=== PATIENT | male | born 1955 | race Caucasian/White ===

== ENCOUNTER 2016-10-29 17:43 | Inpatient (IN) | payer MEDICARE ==
[2016-10-29] MEDS ORDERED: SODIUM CHLORIDE 0.9% 1,000 ML IV ONE (18:31)
--- NOTE | 2016-10-29 18:32 | ED Physician Documentation ---
History of Present Illness - Stated complaint Stated Complaint: BILAT LEG ABCESS - Chief complaint Chief Complaint: Ext Problem - History obtained from History obtained from: Patient - History of Present Illness Timing: How many weeks ago (3) Pain level max: 10 Pain level now: 10 - Additonal information Additional information: Patient is a 61-year-old male who presents to the emergency department complaining of bilateral lower extremity swelling and purulent drainage for the past 3 weeks. States has had multiple abscesses in the past. Denies any IV drug use or history of IV drug use. States has been feeling hot and cold. Does not improve with anything and does not worsen with anything. He is on morphine at home for chronic pain. Review of Systems Ten Systems: 10 systems reviewed and negative Constitutional: reports: Chills. denies: Fever Ears: denies: Ear pain Nose: denies: Rhinorrhea / runny nose, Congestion Throat: denies: Sore throat Cardiac: denies: Chest pain / pressure Respiratory: denies: Cough GI: denies: Nausea, Vomiting, Diarrhea Skin: reports: Rash (For the past 2 days) Musculoskeletal: denies: Neck pain, Back pain Neurologic: denies: Focal weakness, Numbness, Headache PD PAST MEDICAL HISTORY - Past Medical History Cardiovascular: Hypertension Respiratory: COPD, Pneumonia Neuro: None, Headache/migraine, Peripheral neuropathy Endocrine/Autoimmune: None GI: Other : None HEENT: None Psych: Depression, Post traumatic stress disorder Musculoskeletal: Chronic back pain Derm: None Other Past Medical History: pancreatic cancer, umbilical hernia - Past Surgical History Past Surgical History: Yes Ortho: Spine surgery Derm: Skin cancer surgery - Present Medications Home Medications: Ambulatory Orders Medication Instructions Recorded Confirmed Albuterol Sulfate [Albuterol 1 puffs INH Q4HR PRN 11/15/14 11/15/14 Sulfate Hfa] Morphine ER 90 mg PO Q8H 11/15/14 11/15/14 Morphine Ir [Ms Ir] 30 mg PO Q4H PRN 11/15/14 11/15/14 - Allergies Allergies/Adverse Reactions: Allergies Allergy/AdvReac Type Severity Reaction Status Date / Time milk Allergy GI upset Verified 11/07/14 14:20 - Social History Does the pt smoke?: Yes Smoking Status: Current every day smoker Does the pt drink ETOH?: Yes Does the pt have substance abuse?: No - Immunizations Immunizations are current?: Yes - POLST Patient has POLST: No PD ED PE NORMAL - Vitals Vital signs reviewed: Yes - General General: Alert and oriented X 3, No acute distress - HEENT HEENT: PERRL, Moist mucous membranes - Neck Neck: Supple, no meningeal sign - Cardiac Cardiac: RRR - Respiratory Respiratory: No respiratory distress, Clear bilaterally - Abdomen Abdomen: Soft, Non tender, Non distended - Derm Derm: Warm and dry - Extremities Extremities: Other (B LE edema, moderate cellulitis to the B medial aspects of the lower legs. draining wounds, no drainable abscess. Also swelling to the B hands. Also small non-blanching rash to the B LE and groin. not palpable. ) - Neuro Neuro: Alert and oriented X 3 - Psych Psych: Normal mood, Normal affect Results - Vitals Vitals: Vital Signs - 24 hr 10/29/16 10/29/16 10/29/16 17:56 19:46 20:33 Temperature 36.6 C Heart Rate 94 79 81 Respiratory 18 15 16 Rate Blood Pressure 175/114 H 162/90 H 152/90 H O2 Saturation 100 93 100 Oxygen O2 Source Nasal cannula Oxygen Flow Rate 2 - Labs Labs: Laboratory Tests 10/29/16 10/29/16 10/29/16 19:52 19:52 19:52 WBC 9.7 RBC 4.12 L Hgb 12.0 L Hct 36.0 L MCV 87.5 MCH 29.1 MCHC 33.2 RDW 13.6 Plt Count 327 MPV 7.0 L Neut # 7.7 H Lymph # 1.1 L [place] # 0.8 Eos # 0.1 Baso # 0.0 Absolute Nucleated RBC 0.00 Nucleated RBCs 0.0 ESR PT INR APTT Sodium 130 L Potassium 3.7 Chloride 95 L Carbon Dioxide 27 Anion Gap 8.0 BUN 20 Creatinine 0.6 Estimated GFR (MDRD) 136 Glucose 128 H Lactic Acid 1.4 Calcium 8.3 L Total Bilirubin 0.5 AST 36 ALT 15 Alkaline Phosphatase 74 C-Reactive Protein Total Protein 6.7 Albumin 2.8 L Globulin 3.9 Albumin/Globulin Ratio 0.7 L Lipase 15 L 10/29/16 10/29/16 10/29/16 19:52 19:52 19:52 WBC RBC Hgb Hct MCV MCH MCHC RDW Plt Count MPV Neut # Lymph # [place] # Eos # Baso # Absolute Nucleated RBC Nucleated RBCs ESR 20 PT 13.8 H INR 1.2 APTT 33.5 H Sodium Potassium Chloride Carbon Dioxide Anion Gap BUN Creatinine Estimated GFR (MDRD) Glucose Lactic Acid Calcium Total Bilirubin AST ALT Alkaline Phosphatase C-Reactive Protein 12.7 H Total Protein Albumin Globulin Albumin/Globulin Ratio Lipase PD MEDICAL DECISION MAKING - ED course Complexity details: reviewed old records, reviewed results, re-evaluated patient , considered differential, d/w patient, d/w family, d/w independent crop consultant ED course: Patient is a 61-year-old male with bilateral lower extremity cellulitis. Also appears to have a rash on the bilateral lower extremity, possible vasculitis? He has no drainable abscess, but will require IV antibiotics. He was a difficult IV stick as his veins have been scarred over the years from multiple IV starts. Patient denies any IV drug use. Given Rocephin and vancomycin IV. Discussed the case with Dr. Vera, hospitalist who accepts. This document was made in part using voice recognition software. While efforts are made to proofread this document, sound alike and grammatical errors may occur. Departure - Departure Disposition: 64 [facility] DC/Xfer Clinical Impression: Cellulitis, Vasculitis Condition: Good Discharge Date/Time: 10/29/16 21:41
[2016-10-29] MEDS ORDERED: cefTRIAXone 1 GM in SODIUM CHLORIDE 0.9% MINIBAG 100 ML IV STA (19:52)
[2016-10-29] MEDS ORDERED: VANCOMYCIN INJ 1 GM in SODIUM CHLORIDE 0.9% 250 ML IV STA (19:52)
[2016-10-29 20:03] LABS: BASOPHILS % (AUTO) 0.4 %; EOSINOPHILS # (AUTO) 0.1 10^3/uL (0.0-0.7); EOSINOPHILS % (AUTO) 0.8 %; LYMPHOCYTES # (AUTO) 1.1 10^3/uL (1.5-3.5); LYMPHOCYTES % (AUTO) 11.1 %; MEAN CORPUSCULAR HEMOGLOBIN 29.1 pg (27.0-31.0); MEAN CORPUSCULAR HGB CONC 33.2 g/dL (32.0-36.0); MEAN CORPUSCULAR VOLUME 87.5 fL (80.0-94.0); MONOCYTES # (AUTO) 0.8 10^3/uL (0.0-1.0); MONOCYTES % (AUTO) 8.3 %; NEUTROPHILS # (AUTO) 7.7 10^3/uL (1.5-6.6); NEUTROPHILS % (AUTO) 79.4 %; RED BLOOD COUNT 4.12 10^6/uL (4.70-6.10); RED CELL DISTRIBUTION WIDTH 13.6 % (12.0-15.0); UNCORRECTED WHITE BLOOD COUNT 9.7 x10^3/uL; WHITE BLOOD COUNT 9.7 x10^3/uL (4.8-10.8)
[2016-10-29] MEDS ORDERED: oxyCODONE 5 MG TABLET PO STA (20:03)
[2016-10-29] MEDS ORDERED: VANCOMYCIN 1 GM VIAL ONE (20:09)
[2016-10-29] MEDS ORDERED: cefTRIAXone 1 GM VIAL ONE (20:09)
[2016-10-29] MEDS ORDERED: oxyCODONE 5 MG TABLET ONE (20:09)
[2016-10-29 20:15] LABS: ALBUMIN/GLOBULIN RATIO 0.7 (1.0-2.2); BILIRUBIN,TOTAL 0.5 mg/dL (0.2-1.0); CALCIUM 8.3 mg/dL (8.5-10.3); CREATININE 0.6 mg/dL (0.6-1.2); POTASSIUM 3.7 mmol/L (3.5-5.0); TOTAL PROTEIN 6.7 g/dL (6.7-8.2)
[2016-10-29] MEDS ORDERED: oxyCODONE 5 MG TABLET PO PRN (20:35)
[2016-10-29] MEDS ORDERED: ONDANSETRON ODT 4 MG TABLET TL PRN (20:41)
[2016-10-29 20:43] LABS: INR 1.2 (0.8-1.2); PT - PROTHROMBIN TIME 13.8 secs (9.9-12.6)
[2016-10-29 20:50] LABS: PARTIAL THROMBOPLASTIN TIME 33.5 secs (24.9-33.3)
[2016-10-29] MEDS ORDERED: MORPHINE ER 60 MG TABLET PO SCH (21:00)
[2016-10-29] MEDS ORDERED: ALBUTEROL NEB 2.5 MG/3 ML INH PRN (21:15)
[2016-10-29] MEDS: MORPHINE ER 15 MG TABLET PO SCH (22:17)
[2016-10-29] MEDS: SODIUM CHLORIDE FLUSH 0.9% 10 ML SYRINGE IVP SCH (22:18)
[2016-10-29] MEDS: SODIUM CHLORIDE 0.9% 1,000 ML IV SCH (22:18)
[2016-10-30] MEDS: SODIUM CHLORIDE FLUSH 0.9% 10 ML SYRINGE IVP SCH ×3 (05:00→21:22)
[2016-10-30] MEDS: SODIUM CHLORIDE 0.9% 1,000 ML IV SCH (05:00)
[2016-10-30] MEDS ORDERED: IPRATROPIUM/ALBUTEROL 3 ML NEB INH PRN (07:24)
[2016-10-30] MEDS: MORPHINE ER 15 MG TABLET PO SCH ×2 (08:08→21:22)
[2016-10-30] MEDS ORDERED: VANCOMYCIN PER PHARMACY 0.000001 GM in SODIUM CHLORIDE 0.9% 250 ML IV PRN (09:00)
--- NOTE | 2016-10-30 09:17 | PROVIDER PROGRESS NOTE ---
Subjective - Subjective Pt reports feeling: No change Subjective: patient state he is better, he report no fever, chill, his lower extremities infection has been more than 3 weeks. Objective - Vital Signs/Intake & Output Vital Signs: Vital Signs x48h Pulse Resp 10/30/16 08:00 69 18 Intake & Output: Intake & Output 10/27/16 10/28/16 10/29/16 10/30/16 23:59 23:59 23:59 23:59 Intake Total 627 814 Output Total 400 Balance 627 414 - Objective General Appearance: positive: No acute distress, Alert Eyes Bilateral: positive: Normal inspection, PERRL ENT: positive: ENT inspection nml, No signs of dehydration Neck: positive: Nml inspection, Thyroid nml, Trachea midline, Other (no stiff neck) Respiratory: positive: Chest non-tender, No respiratory distress, Breath sounds nml Cardiovascular: positive: Regular rate & rhythm, No murmur, No gallop Peripheral Pulses: 2+ Radial (R), 2+ Radial (L), 2+ Dorsalis pedis (R), 2+ Dorsalis pedis (L) Abdomen: positive: Non-tender, Nml bowel sounds, No distention Back: positive: Nml inspection Skin: positive: Warm, Other (erthymus, swelling, mild tenderness, diffused ecchymoses at bilateral lower extremities, mild to moderate swelling without redness and tenderness on bilateral hands pain at movement of left hand) Extremities: positive: Pedal edema, Other (review above skin) Neurologic/Psychiatric: positive: Oriented x3, Sensation nml - Lab Results Fish Bones: 10/29/16 19:52 10/29/16 19:52 Other Labs: Lab Results x24hrs 10/30/16 Range/Units 04:35 Urine Opiates Screen POSITIVE H (NEGATIVE) Ur Oxycodone Screen POSITIVE H (NEGATIVE) Urine Methadone Screen NEGATIVE (NEGATIVE) Ur Propoxyphene Screen NEGATIVE (NEGATIVE) Ur Barbiturates Screen NEGATIVE (NEGATIVE) Ur Tricyclics Screen NEGATIVE (NEGATIVE) Ur Phencyclidine Scrn NEGATIVE (NEGATIVE) Ur Amphetamine Screen POSITIVE H (NEGATIVE) U Methamphetamines Scrn POSITIVE H (NEGATIVE) U Benzodiazepines Scrn NEGATIVE (NEGATIVE) Urine Cocaine Screen NEGATIVE (NEGATIVE) U Cannabinoids Screen NEGATIVE (NEGATIVE) Assessment/Plan - Problem List (1) Cellulitis Impression: continue antibiotic treatment, follow up blood and wound culture US of bilateral lower extremities to R/O DVT Xray of left hand to R/O fracture
[2016-10-30] MEDS: ENOXAPARIN 40 MG/0.4 ML SYRINGE SUBQ SCH (09:18)
[2016-10-30] MEDS: VANCOMYCIN INJ 1 GM in SODIUM CHLORIDE 0.9% 250 ML IV SCH ×2 (09:20→21:22)
[2016-10-30] MEDS: POLYETHYLENE GLYCOL 3350 17 GM PACKET PO SCH (09:20)
[2016-10-30] MEDS: MORPHINE IR 15 MG TABLET PO PRN ×2 (12:02→17:27)
--- NOTE | 2016-10-30 15:52 | Ultrasound Preliminary Report ---
Exam: US Duplex Ext Veins Bilateral IMPRESSION: No evidence for deep venous thrombosis bilaterally. [facility] SITE ID: [id number]
--- NOTE | 2016-10-30 15:55 | Ultrasound Report ---
EXAM: BILATERAL LOWER EXTREMITY VENOUS ULTRASOUND EXAM DATE: 10/30/2016 10:40 AM. CLINICAL HISTORY: Bilateral leg swelling for 3 weeks, clinical concern for DVT. COMPARISON: Right lower leg venous Doppler ultrasound exam on 10/25/2009; left leg venous Doppler ul trasound on 11/13/2014. TECHNIQUE: Real-time sonographic vascular imaging was performed by the fresh foods cake decorator through the lower extremities utilizing both color-flow and Doppler spectral analysis. Multiple shipping services sales representative static i mages were saved for review. FINDINGS: Right: Common Femoral Vein (CFV): Normal. CFV-GSV Junction: Normal. Profunda Femoral Vein (PFV): Normal. Femoral Vein (FV) Prox: Normal. Femoral Vein (FV) Mid: Normal. Femoral Vein (FV) Dist: Normal. Popliteal Vein: Normal. Posterior Tibial Veins: Normal. Peroneal Veins: Normal. Left: Common Femoral Vein (CFV): Normal. CFV-GSV Junction: Normal. Profunda Femoral Vein (PFV): Normal. Femoral Vein (FV) Prox: Normal. Femoral Vein (FV) Mid: Normal. Femoral Vein (FV) Dist: Normal. Popliteal Vein: Normal. Posterior Tibial Veins: Normal. Peroneal Veins: Normal. IMPRESSION: No evidence for deep venous thrombosis bilaterally. [facility] Referring Provider Line: [phone] SITE ID: [id number]
[2016-10-30] MEDS: cefTRIAXone 1 GM VIAL IVP SCH (20:08)
[2016-10-31] MEDS: MORPHINE IR 15 MG TABLET PO PRN ×6 (00:35→22:44)
[2016-10-31] MEDS: SODIUM CHLORIDE FLUSH 0.9% 10 ML SYRINGE IVP SCH ×3 (04:20→21:13)
[2016-10-31 06:17] LABS: BASOPHILS % (AUTO) 0.4 %; EOSINOPHILS # (AUTO) 0.1 10^3/uL (0.0-0.7); EOSINOPHILS % (AUTO) 1.3 %; HCT - HEMATOCRIT 33.3 % (42.0-52.0); HGB - HEMOGLOBIN 11.2 g/dL (14.0-18.0); LYMPHOCYTES # (AUTO) 1.1 10^3/uL (1.5-3.5); LYMPHOCYTES % (AUTO) 15.4 %; MEAN CORPUSCULAR HEMOGLOBIN 29.8 pg (27.0-31.0); MEAN CORPUSCULAR HGB CONC 33.7 g/dL (32.0-36.0); MEAN CORPUSCULAR VOLUME 88.5 fL (80.0-94.0); MEAN PLATELET VOLUME 7.1 fL (7.4-11.4); MONOCYTES # (AUTO) 0.5 10^3/uL (0.0-1.0); MONOCYTES % (AUTO) 6.6 %; NEUTROPHILS # (AUTO) 5.6 10^3/uL (1.5-6.6); NEUTROPHILS % (AUTO) 76.3 %; NUCLEATED RED BLOOD CELLS AUTO 0.1 /100WBC; RED BLOOD COUNT 3.76 10^6/uL (4.70-6.10); RED CELL DISTRIBUTION WIDTH 13.8 % (12.0-15.0); UNCORRECTED WHITE BLOOD COUNT 7.3 x10^3/uL; WHITE BLOOD COUNT 7.3 x10^3/uL (4.8-10.8)
[2016-10-31 06:33] LABS: CALCIUM 7.8 mg/dL (8.5-10.3); CREATININE 0.6 mg/dL (0.6-1.2); POTASSIUM 3.4 mmol/L (3.5-5.0)
[2016-10-31] MEDS ORDERED: POTASSIUM CHLORIDE 20 MEQ TABLET PO SCH (08:00)
[2016-10-31] MEDS: POLYETHYLENE GLYCOL 3350 17 GM PACKET PO SCH (08:43)
[2016-10-31] MEDS: SENNA 8.6 MG TABLET PO SCH (08:44)
[2016-10-31] MEDS: MORPHINE ER 15 MG TABLET PO SCH ×2 (08:45→21:13)
[2016-10-31] MEDS: DOCUSATE SODIUM 250 MG CAPSULE PO SCH (08:46)
[2016-10-31] MEDS: ENOXAPARIN 40 MG/0.4 ML SYRINGE SUBQ SCH (08:47)
[2016-10-31] MEDS: VANCOMYCIN INJ 1 GM in SODIUM CHLORIDE 0.9% 250 ML IV SCH ×2 (09:21→21:13)
[2016-10-31] MEDS ORDERED: CALCIUM CARBONATE CHEW 500 MG TABLET PO SCH (11:00)
[2016-10-31] MEDS: LORazepam 2 MG/ML SYRINGE IVP PRN (11:04)
[2016-10-31] MEDS: cloNIDine 0.1 MG TABLET PO SCH ×2 (11:08→21:13)
--- NOTE | 2016-10-31 11:53 | PROVIDER PROGRESS NOTE ---
Subjective - Subjective Pt reports feeling: No change Subjective: patient state he still has unspecific pain, pain is all over his body, and anxiety. Denies chest pain, headache, abdominal pain, or any specific pain. Objective - Vital Signs/Intake & Output Vital Signs: Vital Signs x48h Temp Pulse Pulse Resp BP Pulse Ox 10/31/16 07:55 36.5 C 77 16 144/86 H 93 10/31/16 07:30 56 L 18 Intake & Output: Intake & Output 10/28/16 10/29/16 10/30/16 10/31/16 23:59 23:59 23:59 23:59 Intake Total 627 2691 1120 Output Total 1050 400 Balance 627 1641 720 - Objective General Appearance: positive: No acute distress, Alert Eyes Bilateral: positive: Normal inspection, PERRL ENT: positive: ENT inspection nml, Pharynx nml, No signs of dehydration Neck: positive: Nml inspection, Thyroid nml, Trachea midline Respiratory: positive: Chest non-tender, No respiratory distress, Breath sounds nml Cardiovascular: positive: Regular rate & rhythm, No murmur, No gallop Peripheral Pulses: 2+ Radial (R), 2+ Radial (L), 2+ Dorsalis pedis (R), 2+ Dorsalis pedis (L) Abdomen: positive: Non-tender, Nml bowel sounds, No distention Back: positive: Nml inspection Skin: positive: Color nml, Warm, Other (eccymosis on bilateral leg but reduced from yesterday. reduced redness and swelling from bilatera lower extremities) Extremities: positive: Non-tender, Full ROM Neurologic/Psychiatric: positive: Oriented x3, Motor nml, Sensation nml - Lab Results Fish Bones: 11/02/16 05:25 11/02/16 05:25 Other Labs: Lab Results x24hrs 10/31/16 10/31/16 10/31/16 Range/Units 05:55 05:54 05:54 WBC 7.3 (4.8-10.8) x10^3/uL RBC 3.76 L (4.70-6.10) 10^6/uL Hgb 11.2 L (14.0-18.0) g/dL Hct 33.3 L (42.0-52.0) % MCV 88.5 (80.0-94.0) fL MCH 29.8 (27.0-31.0) pg MCHC 33.7 (32.0-36.0) g/dL RDW 13.8 (12.0-15.0) % Plt Count 284 (130-450) 10^3/uL MPV 7.1 L (7.4-11.4) fL Neut # 5.6 (1.5-6.6) 10^3/uL Lymph # 1.1 L (1.5-3.5) 10^3/uL [place] # 0.5 (0.0-1.0) 10^3/uL Eos # 0.1 (0.0-0.7) 10^3/uL Baso # 0.0 (0.0-0.1) 10^3/uL Absolute Nucleated RBC 0.00 x10^3/uL Nucleated RBCs 0.1 /100WBC Sodium 134 L (135-145) mmol/L Potassium 3.4 L (3.5-5.0) mmol/L Chloride 101 (101-111) mmol/L Carbon Dioxide 25 (21-32) mmol/L Anion Gap 8.0 (6-13) BUN 11 (6-20) mg/dL Creatinine 0.6 (0.6-1.2) mg/dL Estimated GFR (MDRD) 136 (>89) Glucose 108 H (70-100) mg/dL Calcium 7.8 L (8.5-10.3) mg/dL Last Dose Date 10/30/16 Last Dose Time 2122 Vancomycin Trough 10.9 (5.0-15.0) ug/mL Assessment/Plan - Problem List (1) Cellulitis Impression: cellulitis in bilateral lower extremities is getting improvement. Reduced redness and swelling. continue the same antibiotics, follow up blood culture (2) Drug abuse Impression: patient's USD reveals four drug positive including Amphetamine and Methamphetamine. Patient could get withdrawal from all these abused drugs. will closely monitor, add Clonidine and ativan PRN (3) Posttraumatic stress disorder Impression: patient did not have home medication for this problem, will closely monitor, advise patient see PCP to manage this chronic disease. Add Ativan PRN and clonidine (4) History of COPD Impression: patient did not have medications for this medical problem. Patient is stable, no acute or exacerbation. continue albuteral and Duoneb PRN (5) Chronic pain syndrome Impression: patient took 90 mg MS at home, patient has 60 mg MS scheduled and 90 mg PRN in hospital now. Advise patient to visit pain management provider or PCP to manage the chronic problem. continue DVT prophylaxis
[2016-10-31] MEDS ORDERED: BACITRACIN OINT TOP ONE (13:21)
[2016-10-31] MEDS: cefTRIAXone 1 GM VIAL IVP SCH (21:08)
[2016-11-01] MEDS: SODIUM CHLORIDE FLUSH 0.9% 10 ML SYRINGE IVP SCH ×3 (06:35→22:20)
[2016-11-01] MEDS: MORPHINE IR 15 MG TABLET PO PRN ×4 (06:39→19:29)
--- NOTE | 2016-11-01 07:28 | HISTORY & PHYSICAL EXAMINATION ---
DATE OF ADMISSION: 10/29/2016 PRIMARY CARE PROVIDER: Marily Franco PA-C ADMITTING PROVIDER: Breanna Vera MD CHIEF COMPLAINT: Bilateral leg swelling, right leg worse than left, with pain free tight red indurate d skin and multiple draining spots. HISTORY OF PRESENT ILLNESS: The patient is a pleasant man who lives as a boarder in a family home. H e denies recreational substance abuse. The main things that bring him down from a medical perspectiv e is that of chronic back pain from a history of multiple surgeries, and horrible dental caries. He has been having hot flashes off and on for probably 2 years and calls it a form of "manopause." He i s fairly sedentary because of his back pain; but he is still independent enough to dress himself, fee d himself, et cetera. He gets close and great emotional and family support from the family he lives with, as well as his son. He says his son comes by frequently. Helps him buy groceries. Takes him to the doctors' offices. He has a limited lifestyle, but he is content. Starting in 2011, he started having spontaneous eruptions with abscesses. Initially they were in the upper extremities, and a 2012 arm abscess was as big as 8 cm that needed incision and debridement. Between 2011, 2012, and then 2014, he has been hospitalized for abscesses and skin eruptions. Initia lly they were in the arms, and the 2014 admission was in the legs. He feels like he started having a nother episode of skin eruptions starting about 3 weeks ago. He was increasingly fatigued. Appetite has been about the same. He has been having low-grade fevers. He did not want to go in because he thought "they were just going to get better on their own." He finally came in today because the pain was so bad in his legs, that to stand and weightbear was ca using low dull throbbing pain in both legs, especially around the shins and calves, that he could not take it anymore. In looking at the cultures, he has grown out alpha-hemolytic strep, Peptostreptococcus, Prevotella, a nd most interestingly, Eikenella corrodens in 2012 and 11/2014. He says that he has no explanation f or why he has spontaneous skin eruptions. He has been told in the past that his body "is attacking i tself," but he does not know what that means. He is adamant that he does not have recreational subst ance abuse in the form of IV drugs. He did note that this may have started 3 weeks ago when the олег menard cat scratched his leg. No one else is sick in the family. He denies chest pain, palpitations, sh ortness of breath. His teeth are as bad as always. He has chronic coughing and chronic phlegm produ ction from COPD, and occasionally he gets short of breath, but he says that is not any worse than usu al. In addition to the low-grade fevers, sweats, the new eruptions on his legs, he also developed a spont aneous spotty rash starting yesterday. It was spontaneous, started in his shins and calves, and he h as noticed that in the late afternoon it was in his thighs, and by today it is over his genitalia and his lower abdominal wall. They are 1 to 2 mm red dots, mildly pruritic. Non-palpable, non-blanchin g, and so far only over the lower half of his body and none in his arms, trunk, or face or neck. PAST MEDICAL HISTORY 1. Unknown back pathology resulting in spinal surgery in 2000 and 2001. He has chronic severe debili tating pain because of it. 2. PTSD because of being in [place] at the tail end in 1974, as well as being buried in a cave while in [place]. 3. History of depression. Denies suicidal ideation. 4. Chronic opioid dependence. With his last admission in 10/2014, he was taking immediate-release mo rphine as well as extended-release morphine. Extended release was up to 90 mg at a time. Immediate release was up to 30-60 mg at a time. Right now his primary care provider has been working on reduci ng his opioid use. He takes 1-2 long-acting tablets twice a day, up to 120 a month; and 1 tablet of short-acting morphine up to 3 or 4 times a day, again 120 a month. 5. Umbilical hernia repair in the 1973. 6. Esophagitis, gastritis, and hiatal hernia on an EGD in 02/2014. He was JINNY test negative. He also had duodenal ulcers, and the gastritis was moderate. Esophagitis was at the GE junction. What is in teresting is that he denies any history of any GI problems. 7. History of melanoma removed from his face. 8. History of pancreatic cancer that he says has resolved on its own. ALLERGIES: NO KNOWN DRUG ALLERGIES. MEDICATIONS In the EMR, medication reconciliation has not been done. He endorses takin. Albuterol metered dose inhaler 1-2 puffs every 4 hours as needed. 2. Morphine extended release 15 mg tablet 1-2 tablets b.i.d. 3. Morphine immediate release 15 mg tablet 1-2 tablets every 8 hours as needed; again 120 of each per month is allowed. 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 He has been on [employer] disability because of that. He has been since 2000. He used to drink a few be ers a week but stopped drinking around late 2014 because he just did not want to do it anymore. He s tarted smoking at the age of 10 and smoked up to 2 packs per day and most recently smokes half a pack per day. He denies any history of recreational substance abuse. FAMILY HISTORY: Father of cancer and heart disease at age 53. Mom of cancer at age 83. O ne brother is well and has no major medical illnesses and is 61. He has 5 sons; of his 5 sons, they are all healthy. They have issues with regards to smoking, and some mental issues and behavioral iss ues at the of their mom at a young age, but he says that all of them are doing pretty well. He is particularly proud of his youngest son, who comes by every day to take care of his dad. They wayne e in [place], [place], [place], [facility], and his youngest son lives here on [facility]. REVIEW OF SYSTEMS CONSTITUTIONAL: He has a poor appetite all the time, with alternating hot and cold flashes for the l ast 2 years. He is quite thin but says he has had no change in appetite or weight. HEENT: He is becoming legally blind. He wears glasses, but when he takes off the glasses, he cannot see anything, everything is a blurred shape. He has horrible dental caries. Denies glaucoma or cat aracts. Denies dysphasia, Denies problems with hearing. PULMONARY: Constant daily cough, unchanged for years. Occasional productive of yellow to clear phle gm. Again, that is unchanged. No hemoptysis. No increased wheezing, no new chest congestion. CARDIAC: Denies valvular heart disease, chest pain, shortness of breath that is new. Bilateral leg edema is new but no orthopnea. He attributes the leg edema to the infections. GASTROINTESTINAL: He denies stomach pain, change in bowel habits, and interestingly enough, denies h istory of ulcers, indigestion, reflux in spite of the above EGD. GENITOURINARY: Nocturia 4-5 times a night, decreasing stream that has been chronic. No urgency, roddy quency, dysuria. No flank pain. No hematuria. SKIN: The small dots as noted above are new. JOINTS: Chronic unremitting low back pain. Occasional knee and foot pain, unchanged. PSYCHOLOGIC: Occasionally he gets depressed and "gets down;" but he describes a very emotionally sup portive family that he boards with, and son. He feels like he is doing pretty good, and that he is v yu vanessa to have those people in his life. He laments that he is losing his sight. He likes to spe nd a lot of time doing woodwork and building small boxes; doing computer work; and building bikes. O ne of the sons in the family he lives with likes building things with him, and they spend a lot of ti me together. He describes himself as a non-confrontational person, so when people start to yell, get upset, he has to leave the room. CENTRAL NERVOUS SYSTEM: He denies syncope, seizures, memory loss. PHYSICAL EXAMINATION VITAL SIGNS: Temperature is 36.6, pulse is 81, blood pressure 152/90, respirations are 16, and he is 100% saturated on 2 liters nasal cannula. Down to 93% on room air. GENERAL: He is a cachectic middle-aged white male who is bearded, mustached, and is in no acute dist ress but has an overall very badly nourished appearance. HEAD/NECK: Terrible dental caries. Oral mucosa dry but pink. Voice is low and hoarse. Wearing glas ses. Bilateral arcus senilis. Tobyhanna sclerae. Mild generalized alopecia. Neck has shotty, nontende r anterior and posterior cervical adenopathy. No goiter or bruits. Supple. LUNGS: Prolonged end-exhalation with occasional tubular breath sounds in the upper airways, but no c rackles, rhonchi, or wheezing, and he does not have increased respiratory effort when talking to me. There was no spontaneous cough during my exam with him. Chest wall is scaphoid and cachectic. Rib cage visible. CARDIAC: PMI normally placed with a regular rate and rhythm and a systolic ejection murmur. ABDOMEN: Soft, nontender, no organomegaly. GENITOURINARY: Uncircumcised penis with distended testicles, and the non-blanching small rash that i s congregating around the head of his penis over the uncircumcised skin. SKIN: The slightly petechial rash is present on his testicles, lower anterior abdominal wall; on the medial and anterior thighs, and posterior calf over the knees. The skin of his lower extremities is red, hot to touch, right greater than left. He has skin indentations where he has had previous erup tions that have closed and healed. He also has spontaneously healing and nonhealing holes in his ski n that are draining. EXTREMITIES: No clubbing, cyanosis, but he does have the above skin changes. The musculature of his calves is firm and indurated on the right, not so much on the left. NEUROLOGIC: He has generalized weakness, but is alert and oriented to person, place, and time; can f ollow 2-step commands. He needs a little help sitting up for physical exam because he is weak, but c an do so. No focal loss of strength. LABORATORY Sodium is 130, potassium 3.7, BUN 20, creatinine 0.6. Random glucose 128. A glycosylated hemoglobin from 10/2014 was 5.1. Lactic acid 1.4. Liver enzymes normal, albumin down at 2.8. C-reactive prot ein 12.7, lipase 15. White cell count 9.7, hemoglobin 12, hematocrit 36, MCV 87. Blood cultures have been ordered and done. ASSESSMENT AND PLAN 1. Cellulitis and possible small abscesses of the lower extremities. He is to be admitted for an in patient stay. I anticipate greater than 2 midnights. In the past, he stayed anywhere from 3 to 7 da ys for treatment of these of these infections, and I anticipate a repeat treatment pattern. Blood cu ltures have been done. Culture wounds. Start him on Rocephin and vancomycin. I will consult with alirio charles [facility] via the consult line to see if we can put together a p ossible disease that would explain the multiple skin eruptions in a patient who is not an IV drug abu ser. There are some gammopathies that could be inherited, but he is too old for that. He would have started having infections in his teen years. The fact that he is growing out Eikenella is interesti ng. 2. Possible petechial rash of the lower extremities. Non-blanching. Check INR. He does not appear to be in DIC. Vitals are stable. Hemoglobin and hematocrit are stable. 3. Dental caries. Mouthwash and hygiene while here. Puts him at risk of endocarditis. This idea w ith the fact that he has a petechial rash is mildly concerning. He does not have high fevers, shortn ess of breath. He does have a systolic ejection murmur. We will check an echo. 4. Chronic obstructive pulmonary disease. No acute exacerbation at this time. Continue as-needed b ronchodilators with albuterol via nebulizer. 5. FULL CODE STATUS. However, he does that if he were to be significantly disabled because of illne ss, he does not want to be kept alive. He says that he has reached the point where he does not want to be any more disabled than he is now. So he gives me a scenario that if he were in septic shock, i n an ICU, he accepts the use of pressors, BiPAP, but if he were to become ill enough to need full res uscitation, DO NOT INTUBATE - DO NOT RESUSCITATE. He never wants to end up in a halfway faci lity. 6. Deep venous thrombosis prophylaxis will be Lovenox once INR is returned. If INR is not prolonged , we will use that. We will avoid ELSIE hose and sequential compression devices because of the pain in his legs. 7. Chronic pain syndrome with significant psychosocial dysfunction. Resume his usual opiate doses f rom home. JOB #: [id number] EXT JOB #:[id number]
[2016-11-01] MEDS: MORPHINE ER 15 MG TABLET PO SCH ×2 (08:49→20:48)
[2016-11-01] MEDS: cloNIDine 0.1 MG TABLET PO SCH ×2 (09:42→20:48)
[2016-11-01] MEDS: DOCUSATE SODIUM 250 MG CAPSULE PO SCH (09:43)
[2016-11-01] MEDS: PANTOPRAZOLE 40 MG TABLET PO SCH (09:44)
[2016-11-01] MEDS: SENNA 8.6 MG TABLET PO SCH (09:45)
[2016-11-01] MEDS: VANCOMYCIN INJ 1 GM in SODIUM CHLORIDE 0.9% 250 ML IV SCH ×2 (09:47→21:28)
[2016-11-01] MEDS: ENOXAPARIN 40 MG/0.4 ML SYRINGE SUBQ SCH (09:49)
[2016-11-01] MEDS: POLYETHYLENE GLYCOL 3350 17 GM PACKET PO SCH (09:50)
--- NOTE | 2016-11-01 11:46 | PROVIDER PROGRESS NOTE ---
Subjective - Prog Note Date Prog Note Date: 11/01/16 - Subjective Subjective: patient report he got discomfort and mild pain at his stomach. Patient report he did not get good sleep on last night, because so many people came in his room. Patient refused to have blood workup on last night Objective - Vital Signs/Intake & Output Vital Signs: Vital Signs x48h Pulse Pulse Resp BP Pulse Ox 11/01/16 07:40 62 63 16 148/90 H 96 Intake & Output: Intake & Output 10/29/16 10/30/16 10/31/16 11/01/16 23:59 23:59 23:59 23:59 Intake Total 627 2691 1846 330 Output Total 1050 1150 750 Balance 627 1641 696 -420 - Objective General Appearance: positive: No acute distress, Alert Eyes Bilateral: positive: Normal inspection, PERRL ENT: positive: ENT inspection nml, Pharynx nml, No signs of dehydration Neck: positive: Nml inspection, Thyroid nml, Trachea midline Respiratory: positive: Chest non-tender, No respiratory distress, Breath sounds nml Cardiovascular: positive: Regular rate & rhythm, No murmur, No gallop Peripheral Pulses: 2+ Radial (R), 2+ Radial (L), 2+ Dorsalis pedis (R), 2+ Dorsalis pedis (L) Abdomen: positive: Non-tender, No organomegaly, No distention Back: positive: Nml inspection Skin: positive: Color nml, Warm, Other (redness and swelling is much reduced, ecchymesis reduced) Extremities: positive: Non-tender, Full ROM Neurologic/Psychiatric: positive: Oriented x3, Motor nml, Sensation nml - Lab Results Fish Bones: 11/02/16 05:25 11/02/16 05:25 - Diagnostic Imaging Diagnostic Imaging Results: positive: Prelim report reviewed, Final report reviewed Diagnostic Imaging Comments: ECHO result discussed with patient. ECHO reveals patient had normal LV function , no Endocarditis Assessment/Plan - Problem List (1) Cellulitis Impression: clinic symptoms are great improved, continue current treatment plan. Microbiology culture reveals Nasal PCR no MRSA, blood culture negative as far (2) Drug abuse Impression: encourage patient void these illicit drugs (3) Posttraumatic stress disorder Impression: stable, continue to manage (4) History of COPD Impression: since stable, remain the management (5) Chronic pain syndrome Impression: patient ask more pain medications, explain patient the benefits and risks of pain medications. add protonix for his stomach discomfort
[2016-11-01] MEDS: LORazepam 2 MG/ML SYRINGE IVP PRN (14:47)
[2016-11-01] MEDS: SODIUM CHLORIDE FLUSH 0.9% 10 ML SYRINGE IVP PRN ×2 (20:48→21:29)
[2016-11-01] MEDS: cefTRIAXone 1 GM VIAL IVP SCH (20:48)
[2016-11-02] MEDS: MORPHINE IR 15 MG TABLET PO PRN ×3 (00:31→11:36)
[2016-11-02 06:00] LABS: BASOPHILS % (AUTO) 0.2 %; LYMPHOCYTES # (AUTO) 1.3 10^3/uL (1.5-3.5); MONOCYTES # (AUTO) 0.8 10^3/uL (0.0-1.0); MONOCYTES % (AUTO) 6.9 %
[2016-11-02 06:04] LABS: EOSINOPHILS % (AUTO) 0.4 %; HCT - HEMATOCRIT 35.7 % (42.0-52.0); HGB - HEMOGLOBIN 11.9 g/dL (14.0-18.0); MEAN CORPUSCULAR HEMOGLOBIN 29.1 pg (27.0-31.0); MEAN CORPUSCULAR HGB CONC 33.3 g/dL (32.0-36.0); MEAN CORPUSCULAR VOLUME 87.4 fL (80.0-94.0); MEAN PLATELET VOLUME 7.1 fL (7.4-11.4); NEUTROPHILS # (AUTO) 9.5 10^3/uL (1.5-6.6); NEUTROPHILS % (AUTO) 81.5 %; RED BLOOD COUNT 4.09 10^6/uL (4.70-6.10); RED CELL DISTRIBUTION WIDTH 13.5 % (12.0-15.0); UNCORRECTED WHITE BLOOD COUNT 11.7 x10^3/uL; WHITE BLOOD COUNT 11.7 x10^3/uL (4.8-10.8)
[2016-11-02 06:19] LABS: ALBUMIN/GLOBULIN RATIO 0.7 (1.0-2.2); BILIRUBIN,TOTAL 0.8 mg/dL (0.2-1.0); CALCIUM 7.8 mg/dL (8.5-10.3); CREATININE 0.5 mg/dL (0.6-1.2); MAGNESIUM 1.6 mg/dL (1.7-2.8); POTASSIUM 3.9 mmol/L (3.5-5.0); TOTAL PROTEIN 5.4 g/dL (6.7-8.2)
[2016-11-02] MEDS: PANTOPRAZOLE 40 MG TABLET PO SCH (06:20)
[2016-11-02] MEDS: SODIUM CHLORIDE FLUSH 0.9% 10 ML SYRINGE IVP SCH ×3 (06:20→20:15)
[2016-11-02] MEDS: cloNIDine 0.1 MG TABLET PO SCH ×2 (08:47→20:15)
[2016-11-02] MEDS: DOCUSATE SODIUM 250 MG CAPSULE PO SCH (08:48)
[2016-11-02] MEDS: SENNA 8.6 MG TABLET PO SCH (08:48)
[2016-11-02] MEDS: MORPHINE ER 15 MG TABLET PO SCH ×2 (08:49→20:15)
[2016-11-02] MEDS: ENOXAPARIN 40 MG/0.4 ML SYRINGE SUBQ SCH (08:50)
[2016-11-02] MEDS: POLYETHYLENE GLYCOL 3350 17 GM PACKET PO SCH (08:50)
[2016-11-02] MEDS: SODIUM CHLORIDE FLUSH 0.9% 10 ML SYRINGE IVP PRN ×3 (08:52→23:47)
--- NOTE | 2016-11-02 11:15 | PROVIDER PROGRESS NOTE ---
Assessment/Plan - Problem List (1) Acute hyponatremia Assessment/Plan: will continue to monitor sodium and electrolytes with daily labs. He may have mets to the liver given the ascites and continuing to drop his sodium. ultrasound for possible liver mets ordered. (2) Ascites due to chronic alcoholic hepatitis Assessment/Plan: acute. will monitor output. lasix 40mg IV to diuresis. patient may need paracentesis for ascites. pending ultrasound of abdomen. ammonia level checked (3) History of COPD Assessment/Plan: chronic. continue on COPD home medications. RT support with supplemental oxygen (4) Personal history of malignant neoplasm of pancreas Assessment/Plan: chronic. patient is having significant ascites and pain to left upper quadrant. amylase and lipase checked. will continue with dilaudid IV for pain. Ultrasound to rule out pancreatitis. Triglyceride level ordered. possible malignancy mets to other areas such as liver. monitor liver enzymes (6) Lower extremity ulceration Qualifiers: Laterality: unspecified laterality Non-pressure ulcer stage: unspecified non-pressure ulcer stage Qualified Code(s): L97.909 - Non-pressure chronic ulcer of unspecified part of unspecified lower leg with unspecified severity Assessment/Plan: with probable cellulitis unspecified organism. continue with wound care and dressing changes daily. JOHN maldonado for patient. - Current Meds Current Meds: Current Medications Generic Name Dose Route Start Last Admin Trade Name Freq PRN Reason Stop Dose Admin Ceftriaxone Sodium 1 gm 10/30/16 21:00 11/01/16 20:48 Rocephin IVP 1 gm QPM RAFA Administration Clonidine HCl 0.1 mg 10/31/16 11:00 11/02/16 08:47 Catapres PO 0.1 mg BID RAFA Administration Docusate Sodium 250 - 500 mg 10/31/16 09:00 11/02/16 08:48 Colace 250mg Capsule PO 250 mg DAILY RAFA Administration Enoxaparin Sodium 40 mg 10/30/16 09:00 11/02/16 08:50 Lovenox SUBQ 40 mg DAILY RAFA Administration Vancomycin HCl 1 gm/ Sodium 250 mls @ 167 mls/hr 10/30/16 09:00 11/01/16 21:28 Chloride IV 167 mls/hr Q12H RAFA Administration Lorazepam 0.5 mg 10/31/16 10:53 11/01/16 14:47 Ativan Inj IVP 0.5 mg Q2HR PRN Administration Anxiety Morphine Sulfate 15 mg 10/29/16 22:03 11/02/16 06:20 Ms Ir PO 15 mg Q4H PRN Administration breakthrough PAIN Morphine Sulfate 30 mg 10/29/16 22:08 11/02/16 08:49 PO 30 mg BID RAFA Administration Pantoprazole Sodium 40 mg 11/01/16 09:00 11/02/16 06:20 Protonix PO 40 mg QDAC RAFA Administration Polyethylene Glycol 17 gm 10/30/16 09:00 11/02/16 08:50 Miralax PO Not Given DAILY RAFA Senna 8.6 - 17.2 mg 10/31/16 09:00 11/02/16 08:48 Senokot PO 8.6 mg DAILY RAFA Administration Sodium Chloride 10 ml 10/29/16 20:35 11/02/16 08:52 Normal Saline Flush 0.9% IVP 10 ml PRN PRN Administration NEEDED PER PROVIDER ORDERS Sodium Chloride 10 ml 10/29/16 22:00 11/02/16 06:20 Normal Saline Flush 0.9% IVP 10 ml Q8HR RAFA Administration - Lab Result Lab results reviewed: Yes Fish Bone Diagrams: 11/02/16 05:25 11/02/16 05:25 Other Lab Results: Abnormal Lab Results 11/02/16 11/02/16 05:25 05:25 WBC 11.7 x10^3/uL H x10^3/uL (4.8-10.8) RBC 4.09 10^6/uL L 10^6/uL (4.70-6.10) Hgb 11.9 g/dL L g/dL (14.0-18.0) Hct 35.7 % L % (42.0-52.0) MPV 7.1 fL L fL (7.4-11.4) Neut # 9.5 10^3/uL H 10^3/uL (1.5-6.6) Lymph # 1.3 10^3/uL L 10^3/uL (1.5-3.5) Sodium 130 mmol/L L mmol/L (135-145) Chloride 95 mmol/L L mmol/L (101-111) Creatinine 0.5 mg/dL L mg/dL (0.6-1.2) Glucose 103 mg/dL H mg/dL (70-100) Calcium 7.8 mg/dL L mg/dL (8.5-10.3) Magnesium 1.6 mg/dL L mg/dL (1.7-2.8) Total Protein 5.4 g/dL L g/dL (6.7-8.2) Albumin 2.3 g/dL L g/dL (3.2-5.5) Albumin/Globulin Ratio 0.7 L (1.0-2.2) - EKG Results EKG Interpreted Independently: No - Additional Planning Condition/Complexity: Guarded My Orders: My Active Orders 11/02/16 AMMONIA [CHEM] Stat 11/02/16 11:03 Central Line Insertion [RC] ONCE 11/02/16 11:13 Telemetry- [RC] Q4HR NPO [DIET] Abdomen Limited [US] Stat Consult/Specialty: OT, PT, Surgery Plan Discussed with:: Patient Time Spent: 31-60 minutes (wound care consulted for today. will give lasix to diuresis before calling for surgical consult for fluid in abdomen, plan for another 24 hours before discharge. continue on Vancomycin for wounds to lower legs) Subjective - Subjective Patient Reports: Abdominal Pain, Itching, Nausea, Pain Nursing Reports: Nausea, Other (pain to left upper quadrant. pain to lower legs. ascites) Objective Vital Signs: Vital Signs - 24 hr 11/01/16 11/02/16 11/02/16 16:03 02:44 08:07 Temperature 36.8 C 37.0 C 36.4 C L Heart Rate [ 63 78 91 Brachial] Respiratory 20 16 18 Rate Blood Pressure 152/87 H [Left Brachial artery] Blood Pressure 151/90 H 150/94 H [Right Brachial artery] O2 Saturation 100 98 99 11/02/16 10:41 Temperature Heart Rate [ Brachial] Respiratory Rate Blood Pressure 151/86 H [Left Brachial artery] Blood Pressure [Right Brachial artery] O2 Saturation Oxygen O2 Source Room air I&O (Last 24 Hrs): Intake and Output Totals x24h 10/31/16 11/01/16 11/02/16 23:59 23:59 23:59 Intake Total 1846 1340 220 Output Total 1150 1370 775 Balance 211 -80 -899 General: Oriented x3, Mild distress HEENT: PERRLA Neck: No JVD, No thyromegaly (patient is agitated but alert. pain is diffuse and generalized to abdomen) Lymphatic: no adenopathy Neuro: Alert, Oriented Times 3 Cardiovascular: Normal S1, Normal S2 Respiratory: No respiratory distress, Breath sounds nml Abdomen: Other (ascites with wave. tenderness to upper left and right of abdomen.) Genitourinary: Normal Inspection, No Mass Extremities: No clubbing, No cyanosis, Other (edema 2+ to upper bilateral extremities and hands) Skin: No rashes, No breakdown, No significant lesion - Results Results: Laboratory Results WBC 11.7 x10^3/uL (4.8-10.8) H 11/02/16 05:25 RBC 4.09 10^6/uL (4.70-6.10) L 11/02/16 05:25 Hgb 11.9 g/dL (14.0-18.0) L 11/02/16 05:25 Hct 35.7 % (42.0-52.0) L 11/02/16 05:25 MCV 87.4 fL (80.0-94.0) 11/02/16 05:25 MCH 29.1 pg (27.0-31.0) 11/02/16 05:25 MCHC 33.3 g/dL (32.0-36.0) 11/02/16 05:25 RDW 13.5 % (12.0-15.0) 11/02/16 05:25 Plt Count 346 10^3/uL (130-450) 11/02/16 05:25 MPV 7.1 fL (7.4-11.4) L 11/02/16 05:25 Neut # 9.5 10^3/uL (1.5-6.6) H 11/02/16 05:25 Lymph # 1.3 10^3/uL (1.5-3.5) L 11/02/16 05:25 Union # 0.8 10^3/uL (0.0-1.0) 11/02/16 05:25 Eos # 0.0 10^3/uL (0.0-0.7) 11/02/16 05:25 Baso # 0.0 10^3/uL (0.0-0.1) 11/02/16 05:25 Absolute Nucleated RBC 0.00 x10^3/uL 11/02/16 05:25 Nucleated RBCs 0.0 /100WBC 11/02/16 05:25 ESR 20 mm/Hr (0-20) 10/29/16 19:52 PT 13.8 secs (9.9-12.6) H 10/29/16 19:52 INR 1.2 (0.8-1.2) 10/29/16 19:52 APTT 33.5 secs (24.9-33.3) H 10/29/16 19:52 Sodium 130 mmol/L (135-145) L 11/02/16 05:25 Potassium 3.9 mmol/L (3.5-5.0) 11/02/16 05:25 Chloride 95 mmol/L (101-111) L 11/02/16 05:25 Carbon Dioxide 25 mmol/L (21-32) 11/02/16 05:25 Anion Gap 10.0 (6-13) 11/02/16 05:25 BUN 16 mg/dL (6-20) 11/02/16 05:25 Creatinine 0.5 mg/dL (0.6-1.2) L 11/02/16 05:25 Estimated GFR (MDRD) 168 (>89) 11/02/16 05:25 Glucose 103 mg/dL (70-100) H 11/02/16 05:25 Lactic Acid 1.4 mmol/L (0.5-2.2) 10/29/16 19:52 Calcium 7.8 mg/dL (8.5-10.3) L 11/02/16 05:25 Magnesium 1.6 mg/dL (1.7-2.8) L 11/02/16 05:25 Total Bilirubin 0.8 mg/dL (0.2-1.0) 11/02/16 05:25 AST 15 IU/L (10-42) 11/02/16 05:25 ALT 11 IU/L (10-60) 11/02/16 05:25 Alkaline Phosphatase 77 IU/L (42-121) 11/02/16 05:25 C-Reactive Protein 12.7 mg/dL (0-1.0) H 10/29/16 19:52 Total Protein 5.4 g/dL (6.7-8.2) L 11/02/16 05:25 Albumin 2.3 g/dL (3.2-5.5) L 11/02/16 05:25 Globulin 3.1 g/dL (2.1-4.2) 11/02/16 05:25 Albumin/Globulin Ratio 0.7 (1.0-2.2) L 11/02/16 05:25 Lipase 15 U/L (22-51) L 10/29/16 19:52 Last Dose Date 10/30/16 10/31/16 05:55 Last Dose Time 212110/31/16 05:55 Vancomycin Trough 10.9 ug/mL (5.0-15.0) 10/31/16 05:55 Urine Opiates Screen POSITIVE (NEGATIVE) H 10/30/16 04:35 Ur Oxycodone Screen POSITIVE (NEGATIVE) H 10/30/16 04:35 Urine Methadone Screen NEGATIVE (NEGATIVE) 10/30/16 04:35 Ur Propoxyphene Screen NEGATIVE (NEGATIVE) 10/30/16 04:35 Ur Barbiturates Screen NEGATIVE (NEGATIVE) 10/30/16 04:35 Ur Tricyclics Screen NEGATIVE (NEGATIVE) 10/30/16 04:35 Ur Phencyclidine Scrn NEGATIVE (NEGATIVE) 10/30/16 04:35 Ur Amphetamine Screen POSITIVE (NEGATIVE) H 10/30/16 04:35 U Methamphetamines Scrn POSITIVE (NEGATIVE) H 10/30/16 04:35 U Benzodiazepines Scrn NEGATIVE (NEGATIVE) 10/30/16 04:35 Urine Cocaine Screen NEGATIVE (NEGATIVE) 10/30/16 04:35 U Cannabinoids Screen NEGATIVE (NEGATIVE) 10/30/16 04:35 - Procedures Procedures: Procedures CENTRAL VENOUS CATHETER PLACEMENT WITH GUIDANCE (11/07/14) DRESSING OF WOUND NEC (12/04/12) ESOPHAGOGASTRODUODENOSCOPY [EGD] W/CLOSED BIOPSY (03/02/14) OTHER SKIN & SUBQ I D (12/04/12) SOFT TISSUE INCISION NEC (11/07/14)
[2016-11-02 11:52] LABS: AMYLASE 143 U/L (28-100); LIPASE 30 U/L (22-51)
[2016-11-02] MEDS ORDERED: FUROSEMIDE 40 MG/4 ML VIAL IVP SCH (12:00)
[2016-11-02] MEDS: VANCOMYCIN INJ 1 GM in SODIUM CHLORIDE 0.9% 250 ML IV SCH ×2 (14:21→20:15)
[2016-11-02] MEDS: HYDROmorphone 1 MG/ML SYRINGE IVP PRN ×5 (14:29→23:47)
[2016-11-02] MEDS ORDERED: MAGNESIUM SULFATE 2 GRAM 50 ML IV ONE (15:00)
[2016-11-02 16:24] LABS: PHOSPHORUS 3.4 mg/dL (2.5-4.6)
[2016-11-02 16:32] LABS: INR 1.3 (0.8-1.2); PT - PROTHROMBIN TIME 14.6 secs (9.9-12.6)
[2016-11-02] MEDS: LORazepam 2 MG/ML SYRINGE IVP PRN ×4 (16:35→23:48)
[2016-11-02 17:37] LABS: BILIRUBIN,URINE NEGATIVE (NEGATIVE)
--- NOTE | 2016-11-02 17:38 | XRAY Report ---
FRONTAL CHEST: 11/02/2016 CLINICAL INDICATION: Line placement. COMPARISON: 11/08/2014 Frontal view of the chest demonstrates a right jugular line terminating in the superior vena cava. T he cardiac silhouette is not enlarged. Left basilar atelectasis is noted. No pneumothorax is seen o n this supine view. IMPRESSION: RIGHT JUGULAR LINE TERMINATING IN THE SUPERIOR VENA CAVA. JOB #: [id number] EXT JOB #:[id number]
[2016-11-02 17:53] LABS: WBC,URINE 0-3 /HPF (0-3)
--- NOTE | 2016-11-02 18:42 | Ultrasound Report ---
RIGHT UPPER QUADRANT ULTRASOUND: 11/02/2016 CLINICAL INDICATION: Pancreatitis, ascites. TECHNIQUE: Real-time scanning was performed with phone representative static images obtained. The liver measures 13.7 cm. Hepatic echotexture appears unremarkable. No focal parenchymal lesion o r intrahepatic biliary dilatation is present. The common bile duct measures 7 mm. The gallbladder d emonstrates sludge. No cholelithiasis is seen. No wall thickening is present. The right kidney renay sures 12.7 cm, and demonstrates no hydronephrosis. A small volume of ascites is noted. IMPRESSION: SLUDGE IN THE GALLBLADDER, WITHOUT CHOLELITHIASIS. SMALL VOLUME OF ASCITES. JOB #: [id number] EXT JOB #:[id number]
[2016-11-02] MEDS: cefTRIAXone 1 GM VIAL IVP SCH (20:15)
[2016-11-03] MEDS: HYDROmorphone 1 MG/ML SYRINGE IVP PRN ×8 (01:45→22:39)
[2016-11-03] MEDS: PANTOPRAZOLE 40 MG TABLET PO SCH (06:33)
[2016-11-03] MEDS: SODIUM CHLORIDE FLUSH 0.9% 10 ML SYRINGE IVP PRN ×3 (06:33→22:39)
[2016-11-03] MEDS: SODIUM CHLORIDE FLUSH 0.9% 10 ML SYRINGE IVP SCH ×3 (06:34→20:37)
[2016-11-03 07:13] LABS: BASOPHILS % (AUTO) 0.3 %; EOSINOPHILS % (AUTO) 0.1 %; HCT - HEMATOCRIT 37.6 % (42.0-52.0); HGB - HEMOGLOBIN 12.3 g/dL (14.0-18.0); LYMPHOCYTES # (AUTO) 0.9 10^3/uL (1.5-3.5); LYMPHOCYTES % (AUTO) 4.8 %; MEAN CORPUSCULAR HEMOGLOBIN 28.6 pg (27.0-31.0); MEAN CORPUSCULAR HGB CONC 32.6 g/dL (32.0-36.0); MEAN CORPUSCULAR VOLUME 87.6 fL (80.0-94.0); MEAN PLATELET VOLUME 7.2 fL (7.4-11.4); MONOCYTES % (AUTO) 5.6 %; NEUTROPHILS # (AUTO) 16.4 10^3/uL (1.5-6.6); NEUTROPHILS % (AUTO) 89.2 %; RED CELL DISTRIBUTION WIDTH 14.3 % (12.0-15.0); UNCORRECTED WHITE BLOOD COUNT 18.4 x10^3/uL; WHITE BLOOD COUNT 18.4 x10^3/uL (4.8-10.8)
[2016-11-03 07:14] LABS: ALBUMIN/GLOBULIN RATIO 0.7 (1.0-2.2); BILIRUBIN,TOTAL 0.6 mg/dL (0.2-1.0); CALCIUM 7.5 mg/dL (8.5-10.3); CREATININE 0.5 mg/dL (0.6-1.2); MAGNESIUM 1.8 mg/dL (1.7-2.8); POTASSIUM 3.7 mmol/L (3.5-5.0); TOTAL PROTEIN 5.2 g/dL (6.7-8.2)
[2016-11-03] MEDS: cefTRIAXone 1 GM in SODIUM CHLORIDE 0.9% MINIBAG 100 ML IV SCH (08:18)
[2016-11-03] MEDS: DOCUSATE SODIUM 250 MG CAPSULE PO SCH (08:19)
[2016-11-03] MEDS: SENNA 8.6 MG TABLET PO SCH (08:19)
[2016-11-03] MEDS: cloNIDine 0.1 MG TABLET PO SCH ×2 (08:20→20:36)
[2016-11-03] MEDS: POLYETHYLENE GLYCOL 3350 17 GM PACKET PO SCH (08:20)
[2016-11-03] MEDS: MORPHINE ER 15 MG TABLET PO SCH ×2 (08:20→20:36)
[2016-11-03] MEDS: ENOXAPARIN 40 MG/0.4 ML SYRINGE SUBQ SCH (08:21)
--- NOTE | 2016-11-03 08:58 | PROVIDER PROGRESS NOTE ---
Assessment/Plan - Problem List (1) Abdominal pain Assessment/Plan: ongoing. patient continues with nausea and abdominal pain. needs to decompress with NG tube but not accepting at this time. continue with IV pain meds and for nausea (2) Acute hyponatremia Assessment/Plan: ongoing. patient still has low sodium with the possibility for new mets to the colon. will get a CT of abdomen pelvis. salt tabs ordered. (3) History of COPD Assessment/Plan: chronic. continue with RT support and breathing treatments as needed (4) Chronic pain syndrome Assessment/Plan: chronic. continue on pain medication as prescribed but try to decrease dosage if tolerated. patient has constipation and would benefit from a reduction in the dosage. (5) Lower extremity ulceration Qualifiers: Laterality: unspecified laterality Non-pressure ulcer stage: unspecified non-pressure ulcer stage Qualified Code(s): L97.909 - Non-pressure chronic ulcer of unspecified part of unspecified lower leg with unspecified severity Assessment/Plan: ongong. continue with wound care and antibiotic Vancomycin IV with trough. blood cultures negative. will stop if they continue to be negative. (6) Personal history of malignant neoplasm of pancreas Assessment/Plan: resolved. patient has significant ascites to abdomen. possible heath to colon with CT ordered. patient needs colonoscopy and bowel prep. significant stool in colon as well with elevated WBC. possible diverticulitis. (7) Cirrhosis of liver with ascites Qualifiers: Hepatic cirrhosis type: unspecified hepatic cirrhosis Qualified Code(s): K74.60 - Unspecified cirrhosis of liver Assessment/Plan: chronic. patient also has Hep C with now possible new mets in colon. he has - Current Meds Current Meds: Current Medications Generic Name Dose Route Start Last Admin Trade Name Freq PRN Reason Stop Dose Admin Clonidine HCl 0.1 mg 10/31/16 11:00 11/03/16 08:20 Catapres PO 0.1 mg BID RAFA Administration Docusate Sodium 250 - 500 mg 10/31/16 09:00 11/03/16 08:19 Colace 250mg Capsule PO 250 mg DAILY RAFA Administration Enoxaparin Sodium 40 mg 10/30/16 09:00 11/03/16 08:21 Lovenox SUBQ 40 mg DAILY RAFA Administration Heparin Sodium (Beef Lung) 30 - 50 unit 11/03/16 05:39 11/03/16 06:33 IVP 12/03/16 05:39 50 unit ONCE PRN Administration Central Line Protocol (<24 hr) Hydromorphone HCl 1 mg 11/02/16 13:55 11/03/16 05:45 Dilaudid Inj IVP 1 mg Q2HR PRN Administration PAIN Vancomycin HCl 1 gm/ Sodium 250 mls @ 167 mls/hr 10/30/16 09:00 11/02/16 20:15 Chloride IV 167 mls/hr Q12H RAFA Administration Ceftriaxone Sodium 1 gm/ 100 mls @ 200 mls/hr 11/03/16 09:00 11/03/16 08:18 Sodium Chloride IV 200 mls/hr DAILY RAFA Administration Lorazepam 0.5 mg 10/31/16 10:53 11/02/16 23:48 Ativan Inj IVP 0.5 mg Q2HR PRN Administration Anxiety Morphine Sulfate 15 mg 10/29/16 22:03 11/02/16 11:36 Ms Ir PO 15 mg Q4H PRN Administration breakthrough PAIN Morphine Sulfate 30 mg 10/29/16 22:08 11/03/16 08:20 PO 30 mg BID RAFA Administration Pantoprazole Sodium 40 mg 11/01/16 09:00 11/03/16 06:33 Protonix PO 40 mg QDAC RAFA Administration Polyethylene Glycol 17 gm 10/30/16 09:00 11/03/16 08:20 Miralax PO 17 gm DAILY RAFA Administration Senna 8.6 - 17.2 mg 10/31/16 09:00 11/03/16 08:19 Senokot PO 8.6 mg DAILY RAFA Administration Sodium Chloride 10 ml 10/29/16 20:35 11/02/16 23:47 Normal Saline Flush 0.9% IVP 10 ml PRN PRN Administration NEEDED PER PROVIDER ORDERS Sodium Chloride 10 ml 10/29/16 22:00 11/03/16 06:34 Normal Saline Flush 0.9% IVP 10 ml Q8HR RAFA Administration Sodium Chloride 20 ml 11/03/16 05:39 11/03/16 06:33 Normal Saline Flush 0.9% IVP 20 ml PRN PRN Administration After Blood Draw - Lab Result Lab results reviewed: Yes Fish Bone Diagrams: 11/06/16 05:06 11/06/16 05:06 Other Lab Results: Abnormal Lab Results 11/02/16 11/02/16 11/02/16 05:25 05:25 05:25 WBC 11.7 x10^3/uL H x10^3/uL (4.8-10.8) RBC 4.09 10^6/uL L 10^6/uL (4.70-6.10) Hgb 11.9 g/dL L g/dL (14.0-18.0) Hct 35.7 % L % (42.0-52.0) MPV 7.1 fL L fL (7.4-11.4) Neut # 9.5 10^3/uL H 10^3/uL (1.5-6.6) Lymph # 1.3 10^3/uL L 10^3/uL (1.5-3.5) PT INR Sodium 130 mmol/L L mmol/L (135-145) Chloride 95 mmol/L L mmol/L (101-111) Creatinine 0.5 mg/dL L mg/dL (0.6-1.2) Glucose 103 mg/dL H mg/dL (70-100) Calcium 7.8 mg/dL L mg/dL (8.5-10.3) Magnesium 1.6 mg/dL L mg/dL (1.7-2.8) Total Protein 5.4 g/dL L g/dL (6.7-8.2) Albumin 2.3 g/dL L g/dL (3.2-5.5) Albumin/Globulin Ratio 0.7 L (1.0-2.2) Amylase 143 U/L H U/L (28-100) Urine Ketones Urine Occult Blood Urine RBC 11/02/16 11/02/16 11/03/16 15:57 17:00 06:46 WBC RBC Hgb Hct MPV Neut # Lymph # PT 14.6 secs H secs (9.9-12.6) INR 1.3 H (0.8-1.2) Sodium 130 mmol/L L mmol/L (135-145) Chloride 94 mmol/L L mmol/L (101-111) Creatinine 0.5 mg/dL L mg/dL (0.6-1.2) Glucose 121 mg/dL H mg/dL (70-100) Calcium 7.5 mg/dL L mg/dL (8.5-10.3) Magnesium Total Protein 5.2 g/dL L g/dL (6.7-8.2) Albumin 2.2 g/dL L g/dL (3.2-5.5) Albumin/Globulin Ratio 0.7 L (1.0-2.2) Amylase Urine Ketones 40 mg/dL H mg/dL (NEGATIVE) Urine Occult Blood SMALL H (NEGATIVE) Urine RBC 6-10 /HPF H /HPF (0-5) 11/03/16 06:46 WBC 18.4 x10^3/uL H x10^3/uL (4.8-10.8) RBC 4.30 10^6/uL L 10^6/uL (4.70-6.10) Hgb 12.3 g/dL L g/dL (14.0-18.0) Hct 37.6 % L % (42.0-52.0) MPV 7.2 fL L fL (7.4-11.4) Neut # 16.4 10^3/uL H 10^3/uL (1.5-6.6) Lymph # 0.9 10^3/uL L 10^3/uL (1.5-3.5) PT INR Sodium Chloride Creatinine Glucose Calcium Magnesium Total Protein Albumin Albumin/Globulin Ratio Amylase Urine Ketones Urine Occult Blood Urine RBC - EKG Results EKG Interpreted Independently: No - Diagnostic Imaging Results Diagnostic Imaging Results: Prelim report reviewed - Additional Planning Condition/Complexity: Guarded My Orders: My Active Orders 11/02/16 11:13 Telemetry- [RC] Q4HR 11/02/16 13:55 HYDROmorphone INJ [Dilaudid Inj] 1 mg IVP Q2HR PRN 11/03/16 05:39 Heparin Flush 30 - 50 unit IVP ONCE PRN Sodium Chloride Flush 0.9% [Normal Saline Flush 0.9%] 20 ml IVP PRN PRN 11/03/16 08:46 LACTIC ACID, VENOUS [CHEM] Stat 11/03/16 08:48 NPO [DIET] 11/03/16 08:49 Abdomen/Pelvis W/ [CT] Stat Chest W/ [CT] Stat 11/03/16 09:00 Sodium Chloride [Salt Tab] 1 gm PO DAILY 11/03/16 14:30 FUROSEMIDE INJ 40mg VIAL [LASIX INJ 40 mg VIAL] 40 mg IVP DAILY Consult/Specialty: OT, PT, Surgery Plan Discussed with:: Patient, Case Management Time Spent: 31-60 minutes Subjective - Subjective Patient Reports: Abdominal Pain, Constipation, Fatigue, Pain Nursing Reports: Constipation, Nausea, Other (complains of abdominal pain and nausea.) Objective Vital Signs: Vital Signs - 24 hr 11/02/16 11/02/16 11/02/16 10:41 15:37 20:08 Temperature 36.7 C 37.0 C Heart Rate [ 76 90 Brachial] Respiratory 16 16 Rate Blood Pressure 151/86 H 146/80 H 166/95 H [Left Brachial artery] Blood Pressure [Right Brachial artery] O2 Saturation 99 97 11/03/16 11/03/16 00:00 05:11 Temperature 36.3 C L 36.8 C Heart Rate [ 89 95 Brachial] Respiratory 16 16 Rate Blood Pressure [Left Brachial artery] Blood Pressure 146/87 H 145/86 H [Right Brachial artery] O2 Saturation 98 98 Oxygen O2 Source Room air I&O (Last 24 Hrs): Intake and Output Totals x24h 11/01/16 11/02/16 11/03/16 23:59 23:59 23:59 Intake Total 1340 220 447 Output Total 1370 1475 450 Balance -30 -1255 -3 General: Alert, Oriented x3, No acute distress HEENT: PERRLA Neck: Supple, No JVD Lymphatic: no adenopathy Neuro: Alert, CN 2-12 Grossly Intact, Oriented Times 3 Cardiovascular: Regular rate, Normal S1, Normal S2 Respiratory: Chest non-tender, No respiratory distress, Breath sounds nml Abdomen: Other (tenderness and pain with palpation to left lower quadrant and generalized) Genitourinary: No Mass Extremities: No clubbing, No cyanosis, Other (edema to upper extremities with pain to upper arms with palpation) Skin: No breakdown, No significant lesion - Results Results: Laboratory Results WBC 18.4 x10^3/uL (4.8-10.8) H 11/03/16 06:46 RBC 4.30 10^6/uL (4.70-6.10) L 11/03/16 06:46 Hgb 12.3 g/dL (14.0-18.0) L 11/03/16 06:46 Hct 37.6 % (42.0-52.0) L 11/03/16 06:46 MCV 87.6 fL (80.0-94.0) 11/03/16 06:46 MCH 28.6 pg (27.0-31.0) 11/03/16 06:46 MCHC 32.6 g/dL (32.0-36.0) 11/03/16 06:46 RDW 14.3 % (12.0-15.0) 11/03/16 06:46 Plt Count 383 10^3/uL (130-450) 11/03/16 06:46 MPV 7.2 fL (7.4-11.4) L 11/03/16 06:46 Neut # 16.4 10^3/uL (1.5-6.6) H 11/03/16 06:46 Lymph # 0.9 10^3/uL (1.5-3.5) L 11/03/16 06:46 [place] # 1.0 10^3/uL (0.0-1.0) 11/03/16 06:46 Eos # 0.0 10^3/uL (0.0-0.7) 11/03/16 06:46 Baso # 0.0 10^3/uL (0.0-0.1) 11/03/16 06:46 Absolute Nucleated RBC 0.01 x10^3/uL 11/03/16 06:46 Nucleated RBCs 0.0 /100WBC 11/03/16 06:46 ESR 20 mm/Hr (0-20) 10/29/16 19:52 PT 14.6 secs (9.9-12.6) H 11/02/16 15:57 INR 1.3 (0.8-1.2) H 11/02/16 15:57 APTT 33.5 secs (24.9-33.3) H 10/29/16 19:52 Sodium 130 mmol/L (135-145) L 11/03/16 06:46 Potassium 3.7 mmol/L (3.5-5.0) 11/03/16 06:46 Chloride 94 mmol/L (101-111) L 11/03/16 06:46 Carbon Dioxide 26 mmol/L (21-32) 11/03/16 06:46 Anion Gap 10.0 (6-13) 11/03/16 06:46 BUN 19 mg/dL (6-20) 11/03/16 06:46 Creatinine 0.5 mg/dL (0.6-1.2) L 11/03/16 06:46 Estimated GFR (MDRD) 168 (>89) 11/03/16 06:46 Glucose 121 mg/dL (70-100) H 11/03/16 06:46 Lactic Acid 1.4 mmol/L (0.5-2.2) 10/29/16 19:52 Calcium 7.5 mg/dL (8.5-10.3) L 11/03/16 06:46 Phosphorus 3.4 mg/dL (2.5-4.6) 11/02/16 15:57 Magnesium 1.8 mg/dL (1.7-2.8) 11/03/16 06:46 Total Bilirubin 0.6 mg/dL (0.2-1.0) 11/03/16 06:46 GGT 15 IU/L (8-55) 11/02/16 15:57 AST 15 IU/L (10-42) 11/03/16 06:46 ALT 11 IU/L (10-60) 11/03/16 06:46 Alkaline Phosphatase 66 IU/L (42-121) 11/03/16 06:46 Ammonia 10.6 umol/L (7-35) 11/02/16 15:57 Total Creatine Kinase 34 IU/L (22-269) 11/02/16 15:57 C-Reactive Protein 12.7 mg/dL (0-1.0) H 10/29/16 19:52 B-Natriuretic Peptide 60 pg/mL (5-100) 11/02/16 15:57 Total Protein 5.2 g/dL (6.7-8.2) L 11/03/16 06:46 Albumin 2.2 g/dL (3.2-5.5) L 11/03/16 06:46 Globulin 3.0 g/dL (2.1-4.2) 11/03/16 06:46 Albumin/Globulin Ratio 0.7 (1.0-2.2) L 11/03/16 06:46 Amylase 143 U/L (28-100) H 11/02/16 05:25 Lipase 30 U/L (22-51) 11/02/16 05:25 Urine Color DARK YELLOW 11/02/16 17:00 Urine Clarity CLEAR (CLEAR) 11/02/16 17:00 Urine pH 6.0 PH (5.0-7.5) 11/02/16 17:00 Ur Specific [place] 1.025 (1.002-1.030) 11/02/16 17:00 Urine Protein NEGATIVE mg/dL (NEGATIVE) 11/02/16 17:00 Urine Glucose (UA) NEGATIVE mg/dL (NEGATIVE) 11/02/16 17:00 Urine Ketones 40 mg/dL (NEGATIVE) H 11/02/16 17:00 Urine Occult Blood SMALL (NEGATIVE) H 11/02/16 17:00 Urine Nitrite NEGATIVE (NEGATIVE) 11/02/16 17:00 Urine Bilirubin NEGATIVE (NEGATIVE) 11/02/16 17:00 Urine Urobilinogen 1 (NORMAL) E.U./dL (NORMAL) 11/02/16 17:00 Ur Leukocyte Esterase NEGATIVE (NEGATIVE) 11/02/16 17:00 Urine RBC 6-10 /HPF (0-5) H 11/02/16 17:00 Urine WBC 0-3 /HPF (0-3) 11/02/16 17:00 Ur Squamous Epith Cells NONE SEEN (<= Few) 11/02/16 17:00 Urine Bacteria None Seen /HPF (None Seen) 11/02/16 17:00 Last Dose Date 10/30/16 10/31/16 05:55 Last Dose Time 212110/31/16 05:55 Vancomycin Trough 10.9 ug/mL (5.0-15.0) 10/31/16 05:55 Urine Opiates Screen POSITIVE (NEGATIVE) H 10/30/16 04:35 Ur Oxycodone Screen POSITIVE (NEGATIVE) H 10/30/16 04:35 Urine Methadone Screen NEGATIVE (NEGATIVE) 10/30/16 04:35 Ur Propoxyphene Screen NEGATIVE (NEGATIVE) 10/30/16 04:35 Ur Barbiturates Screen NEGATIVE (NEGATIVE) 10/30/16 04:35 Ur Tricyclics Screen NEGATIVE (NEGATIVE) 10/30/16 04:35 Ur Phencyclidine Scrn NEGATIVE (NEGATIVE) 10/30/16 04:35 Ur Amphetamine Screen POSITIVE (NEGATIVE) H 10/30/16 04:35 U Methamphetamines Scrn POSITIVE (NEGATIVE) H 10/30/16 04:35 U Benzodiazepines Scrn NEGATIVE (NEGATIVE) 10/30/16 04:35 Urine Cocaine Screen NEGATIVE (NEGATIVE) 10/30/16 04:35 U Cannabinoids Screen NEGATIVE (NEGATIVE) 10/30/16 04:35 - Procedures Procedures: Procedures CENTRAL VENOUS CATHETER PLACEMENT WITH GUIDANCE (11/07/14) DRESSING OF WOUND NEC (12/04/12) ESOPHAGOGASTRODUODENOSCOPY [EGD] W/CLOSED BIOPSY (03/02/14) OTHER SKIN & SUBQ I D (12/04/12) SOFT TISSUE INCISION NEC (11/07/14)
[2016-11-03] MEDS: VANCOMYCIN INJ 1 GM in SODIUM CHLORIDE 0.9% 250 ML IV SCH ×2 (09:08→20:36)
[2016-11-03] MEDS: SODIUM CHLORIDE 1 GM TABLET PO SCH (10:13)
--- NOTE | 2016-11-03 10:32 | CT Preliminary Report ---
Exam: CT Chest W/O IMPRESSION: 1. No thoracic adenopathy. 2. Numerous bilateral subcentimeter nodules measuring between 2-3 mm likely similar compared to 05/06 and remain indeterminate. 2. Moderate hiatal hernia. 3. Mild focal peribronchiolar and ground glass opacities present in the inferior right upper lobe and right middle lobe likely inflammatory/infectious in etiology and may represent small airways disease . 4. T6 compression deformity, unchanged. Mild anterior wedging of T12, stable. [facility] SITE ID: [id number]
--- NOTE | 2016-11-03 10:50 | CT Preliminary Report ---
Exam: CT Abdomen/Pelvis W/O IMPRESSION: 1. Small to moderate volume of abdominal and pelvic ascites. 2. Segmental proximal and mid-distal circumferential small bowel wall thickening largest seen in the lower abdomen and pelvis uncertain etiology may be infectious/inflammatory less likely hemorrhagic. I nfiltrative process is not excluded. No evidence for bowel obstruction. 3. Moderate to large volume of stool in the colon. 4. Limited evaluation of the pancreas due to the lack of contrast. Pancreatic parenchymal volume loss . [facility] SITE ID: [id number]
[2016-11-03] MEDS ORDERED: METHYLNALTREXONE 12 MG/0.6 ML VIAL SUBQ ONE (12:04)
--- NOTE | 2016-11-03 12:26 | CT Report ---
EXAM: CT CHEST EXAM DATE: 11/03/2016 09:48 AM. CLINICAL HISTORY: Ascites, pancreatic ca history, upper abdominal pain. COMPARISONS: 05/06/2009. TECHNIQUE: Routine helical CT imaging was performed through the chest. IV contrast: None. Reconstruct ions: Coronal and sagittal. In accordance with CT protocol optimization, one or more of the following dose reduction techniques w ere utilized for this exam: automated exposure control, adjustment of mA and/or KV based on patient s ize, or use of iterative reconstructive technique. FINDINGS: Lungs/Pleura: There are emphysematous changes and mild biapical pleural scarring and pleural thickeni ng. Minimal centrilobular opacities are seen in the inferior apical lobe and right middle lobe with m ild Peribronchiolar groundglass opacities. Bilateral effusions. Lower lobe opacities favoring atelectasis . No vascular congestion. Multiple bilateral nodular opacities are seen measuring between 2-3 mm. Mediastinum: thyroid gland is unremarkable. Right IJ catheter is present with the tip in the mid SVC . Heart size is normal. Moderate hiatal hernia. No enlarged mediastinal or hilar lymph nodes are iden tified. Bones: Degenerative changes of thoracic spine. Moderate compression deformity of T6, unchanged compar ed to 05/06/2009. No new osseous lesions. Mild anterior wedging of T12 also is seen which appears sim ilar. Other: None. IMPRESSION: 1. No thoracic adenopathy. 2. Numerous bilateral subcentimeter nodules measuring between 2-3 mm, Which are similar compared to 0 05/06/2009 and remain indeterminate. 2. Moderate hiatal hernia. 3. Mild focal peribronchiolar and ground glass opacities present in the inferior right upper lobe and right middle lobe, which are likely inflammatory/infectious in etiology and may represent small airw ays disease. 4. T6 compression deformity, unchanged. Mild anterior wedging of T12, stable. [facility] Referring Provider Line: [phone] SITE ID: [id number]
--- NOTE | 2016-11-03 12:27 | CT Report ---
EXAM: CT ABDOMEN AND PELVIS EXAM DATE: 11/03/2016 10:06 AM. CLINICAL HISTORY: History of pancreatic ca, question metastasis back. COMPARISONS: 05/06/2009. 04/24/2009.. TECHNIQUE: Routine axial helical CT imaging was performed through the abdomen and pelvis without IV c ontrast. Reconstructions: Coronal and sagittal. In accordance with CT protocol optimization, one or more of the following dose reduction techniques w ere utilized for this exam: automated exposure control, adjustment of mA and/or KV based on patient s ize, or use of iterative reconstructive technique. FINDINGS: Lung Bases: Small bilateral pleural effusions and lower lobe opacities. Heart size is normal. Moderat e hiatal hernia. Liver: Unenhanced images of the liver are unremarkable. Gallbladder: Unenhanced images of the gallbladder are unremarkable. Spleen: Unenhanced images of the spleen are unremarkable. Pancreas: Atrophic. Pancreas is not well seen. Adrenal glands: Normal. Kidneys: Unenhanced images of the kidneys are unremarkable. No hydronephrosis. Mild perinephric stran ding. Peritoneal Cavity: Small to moderate volume of abdominal ascites. Moderate to large volume of stool i s seen in the colon. Circumferential thickening of loops of small bowel is seen in the lower abdomen as well as involving the proximal small bowel particularly the jejunum. Other [id number] loops of small bowel are fluid-filled. No evidence for obstruction. Stomach is nondistended. No enlarged re troperitoneal lymph nodes are seen. Pelvic Organs: Small to moderate volume of ascites. Urinary bladder is mildly distended and unremarka ble. Prostate calcifications are seen. Vasculature: Atherosclerotic calcifications. No aneurysm. Other: Degenerative changes in lower thoracic and lumbar spine. Anterior wedging of T12, unchanged. D egenerative changes are seen greatest at L5-S1. Changes are seen from right L5 laminectomy. Degenerat mark changes of both hip joints. Sclerotic focus in the left sacroiliac joint, unchanged. IMPRESSION: 1. Small to moderate volume of abdominal and pelvic ascites. 2. Segmental proximal and mid distal circumferential small bowel wall thickening largely seen in the lower abdomen and pelvis of uncertain etiology and may be infectious/inflammatory, less likely hemorr hagic. Infiltrative process is not excluded. No evidence for bowel obstruction. 3. Moderate to large volume of stool in the colon. 4. Limited evaluation of the pancreas due to the lack of contrast. Pancreatic parenchymal volume loss . [facility] Referring Provider Line: [phone] SITE ID: [id number]
[2016-11-03] MEDS: FUROSEMIDE 40 MG/4 ML VIAL IVP SCH (13:29)
[2016-11-03] MEDS: CIPROFLOXACIN 400 MG/200 ML 200 ML IV SCH (18:07)
[2016-11-03] MEDS: MORPHINE IR 15 MG TABLET PO PRN (18:07)
[2016-11-03] MEDS: SODIUM/POTASSIUM/MAG SULFATES 354 ML PREP KIT PO SCH (18:08)
[2016-11-03] MEDS: ONDANSETRON 4 MG/2 ML VIAL IVP PRN (21:38)
[2016-11-04] MEDS: MORPHINE IR 15 MG TABLET PO PRN ×5 (00:20→16:36)
[2016-11-04] MEDS: HYDROmorphone 1 MG/ML SYRINGE IVP PRN ×9 (00:31→20:21)
[2016-11-04] MEDS: SODIUM CHLORIDE FLUSH 0.9% 10 ML SYRINGE IVP PRN ×8 (00:31→18:05)
[2016-11-04] MEDS: SODIUM/POTASSIUM/MAG SULFATES 354 ML PREP KIT PO SCH (04:24)
[2016-11-04] MEDS: CIPROFLOXACIN 400 MG/200 ML 200 ML IV SCH ×2 (05:38→18:03)
[2016-11-04] MEDS: SODIUM CHLORIDE FLUSH 0.9% 10 ML SYRINGE IVP SCH ×3 (05:38→20:21)
[2016-11-04] MEDS: PANTOPRAZOLE 40 MG TABLET PO SCH ×2 (06:36→06:43)
[2016-11-04] MEDS: ONDANSETRON 4 MG/2 ML VIAL IVP PRN (06:48)
[2016-11-04 06:51] LABS: BASOPHILS % (AUTO) 0.2 %; EOSINOPHILS % (AUTO) 0.2 %; HCT - HEMATOCRIT 35.1 % (42.0-52.0); HGB - HEMOGLOBIN 11.8 g/dL (14.0-18.0); LYMPHOCYTES # (AUTO) 0.8 10^3/uL (1.5-3.5); LYMPHOCYTES % (AUTO) 5.2 %; MEAN CORPUSCULAR HEMOGLOBIN 29.4 pg (27.0-31.0); MEAN CORPUSCULAR HGB CONC 33.5 g/dL (32.0-36.0); MEAN CORPUSCULAR VOLUME 87.8 fL (80.0-94.0); MEAN PLATELET VOLUME 6.5 fL (7.4-11.4); MONOCYTES # (AUTO) 0.9 10^3/uL (0.0-1.0); MONOCYTES % (AUTO) 5.5 %; NEUTROPHILS # (AUTO) 14.4 10^3/uL (1.5-6.6); NEUTROPHILS % (AUTO) 88.9 %; NUCLEATED RED BLOOD CELLS AUTO 0.1 /100WBC; RED CELL DISTRIBUTION WIDTH 14.3 % (12.0-15.0); UNCORRECTED WHITE BLOOD COUNT 16.2 x10^3/uL; WHITE BLOOD COUNT 16.2 x10^3/uL (4.8-10.8)
[2016-11-04 07:04] LABS: ALBUMIN/GLOBULIN RATIO 0.8 (1.0-2.2); BILIRUBIN,TOTAL 0.5 mg/dL (0.2-1.0); CREATININE 0.7 mg/dL (0.6-1.2); POTASSIUM 3.4 mmol/L (3.5-5.0); TOTAL PROTEIN 5.8 g/dL (6.7-8.2)
[2016-11-04] MEDS: MORPHINE ER 15 MG TABLET PO SCH ×2 (08:14→20:21)
[2016-11-04] MEDS: LORazepam 2 MG/ML SYRINGE IVP PRN ×5 (08:25→20:22)
--- NOTE | 2016-11-04 08:56 | PROVIDER PROGRESS NOTE ---
Assessment/Plan - Problem List (1) Acute hyponatremia Assessment/Plan: improving. continue with salt tabs and monitoring of daily labs (2) History of COPD Assessment/Plan: chronic. continue with supplemental oxygen and duonebs treatments. (3) Chronic pain syndrome Assessment/Plan: chronic. continue with IV pain medication and IV Zofran (4) Lower extremity ulceration Qualifiers: Laterality: unspecified laterality Non-pressure ulcer stage: unspecified non-pressure ulcer stage Qualified Code(s): L97.909 - Non-pressure chronic ulcer of unspecified part of unspecified lower leg with unspecified severity Assessment/Plan: ongoing. wound care and antibiotics IV (5) Personal history of malignant neoplasm of pancreas Assessment/Plan: stable. continue to monitor CBC and Electrolytes daily lab draws and CT of abdomen for additional mets (6) Cirrhosis of liver with ascites Qualifiers: Hepatic cirrhosis type: unspecified hepatic cirrhosis Qualified Code(s): K74.60 - Unspecified cirrhosis of liver Assessment/Plan: patient continues with ascites that is chronic. distention of abdomen is not improving and needs to decompress. again recommend a NG tube - Current Meds Current Meds: Current Medications Generic Name Dose Route Start Last Admin Trade Name Freq PRN Reason Stop Dose Admin Clonidine HCl 0.1 mg 10/31/16 11:00 11/03/16 20:36 Catapres PO 0.1 mg BID RAFA Administration Docusate Sodium 250 - 500 mg 10/31/16 09:00 11/03/16 08:19 Colace 250mg Capsule PO 250 mg DAILY RAFA Administration Enoxaparin Sodium 40 mg 10/30/16 09:00 11/03/16 08:21 Lovenox SUBQ 40 mg DAILY RAFA Administration Furosemide 40 mg 11/03/16 14:30 11/03/16 13:29 Lasix Inj 40 Mg Vial IVP 40 mg DAILY RAFA Administration Heparin Sodium (Beef Lung) 30 - 50 unit 11/03/16 05:39 11/04/16 06:36 IVP 12/03/16 05:39 50 unit ONCE PRN Administration Central Line Protocol (<24 hr) Hydromorphone HCl 1 mg 11/02/16 13:55 11/04/16 08:14 Dilaudid Inj IVP 1 mg Q2HR PRN Administration PAIN Vancomycin HCl 1 gm/ Sodium 250 mls @ 167 mls/hr 10/30/16 09:00 11/03/16 20:36 Chloride IV 167 mls/hr Q12H RAFA Administration Ceftriaxone Sodium 1 gm/ 100 mls @ 200 mls/hr 11/03/16 09:00 11/03/16 08:18 Sodium Chloride IV 200 mls/hr DAILY RAFA Administration Ciprofloxacin 200 mls @ 200 mls/hr 11/03/16 18:00 11/04/16 05:38 Cipro 400 Mg/200 Ml IV 200 mls/hr Q12H RAFA Administration Lorazepam 0.5 mg 10/31/16 10:53 11/04/16 08:25 Ativan Inj IVP 0.5 mg Q2HR PRN Administration Anxiety Morphine Sulfate 15 mg 10/29/16 22:03 11/04/16 08:14 Ms Ir PO 15 mg Q4H PRN Administration breakthrough PAIN Morphine Sulfate 30 mg 10/29/16 22:08 11/04/16 08:14 PO 30 mg BID RAFA Administration Ondansetron HCl 4 mg 10/29/16 20:41 11/04/16 08:14 Zofran Odt TL 4 mg Q4HR PRN Administration Nausea / Vomiting Ondansetron HCl 4 mg 10/29/16 20:41 11/04/16 06:48 Zofran Inj IVP 4 mg Q4HR PRN Administration Nausea / Vomiting Pantoprazole Sodium 40 mg 11/01/16 09:00 11/04/16 06:43 Protonix PO Not Given QDAC RAFA Polyethylene Glycol 17 gm 10/30/16 09:00 11/03/16 08:20 Miralax PO 17 gm DAILY RAFA Administration Senna 8.6 - 17.2 mg 10/31/16 09:00 11/03/16 08:19 Senokot PO 8.6 mg DAILY RAFA Administration Sodium Chloride 10 ml 10/29/16 20:35 11/04/16 08:25 Normal Saline Flush 0.9% IVP 10 ml PRN PRN Administration NEEDED PER PROVIDER ORDERS Sodium Chloride 10 ml 10/29/16 22:00 11/04/16 05:38 Normal Saline Flush 0.9% IVP 10 ml Q8HR RAFA Administration Sodium Chloride 20 ml 11/03/16 05:39 11/04/16 00:31 Normal Saline Flush 0.9% IVP 20 ml PRN PRN Administration After Blood Draw Sodium Chloride 1 gm 11/03/16 09:00 11/03/16 10:13 Salt Tab PO 1 gm DAILY RAFA Administration - Lab Result Lab results reviewed: Yes Fish Bone Diagrams: 11/06/16 05:06 11/06/16 05:06 Other Lab Results: Abnormal Lab Results 11/02/16 11/02/16 11/02/16 05:25 05:25 15:57 WBC RBC Hgb Hct MPV Neut # Lymph # PT 14.6 secs H secs (9.9-12.6) INR 1.3 H (0.8-1.2) Sodium 130 mmol/L L mmol/L (135-145) Potassium Chloride 95 mmol/L L mmol/L (101-111) BUN Creatinine 0.5 mg/dL L mg/dL (0.6-1.2) Glucose 103 mg/dL H mg/dL (70-100) Calcium 7.8 mg/dL L mg/dL (8.5-10.3) Magnesium 1.6 mg/dL L mg/dL (1.7-2.8) Total Protein 5.4 g/dL L g/dL (6.7-8.2) Albumin 2.3 g/dL L g/dL (3.2-5.5) Albumin/Globulin Ratio 0.7 L (1.0-2.2) Amylase 143 U/L H U/L (28-100) Urine Ketones Urine Occult Blood Urine RBC 11/02/16 11/03/16 11/03/16 17:00 06:46 06:46 WBC 18.4 x10^3/uL H x10^3/uL (4.8-10.8) RBC 4.30 10^6/uL L 10^6/uL (4.70-6.10) Hgb 12.3 g/dL L g/dL (14.0-18.0) Hct 37.6 % L % (42.0-52.0) MPV 7.2 fL L fL (7.4-11.4) Neut # 16.4 10^3/uL H 10^3/uL (1.5-6.6) Lymph # 0.9 10^3/uL L 10^3/uL (1.5-3.5) PT INR Sodium 130 mmol/L L mmol/L (135-145) Potassium Chloride 94 mmol/L L mmol/L (101-111) BUN Creatinine 0.5 mg/dL L mg/dL (0.6-1.2) Glucose 121 mg/dL H mg/dL (70-100) Calcium 7.5 mg/dL L mg/dL (8.5-10.3) Magnesium Total Protein 5.2 g/dL L g/dL (6.7-8.2) Albumin 2.2 g/dL L g/dL (3.2-5.5) Albumin/Globulin Ratio 0.7 L (1.0-2.2) Amylase Urine Ketones 40 mg/dL H mg/dL (NEGATIVE) Urine Occult Blood SMALL H (NEGATIVE) Urine RBC 6-10 /HPF H /HPF (0-5) 11/04/16 11/04/16 06:42 06:42 WBC 16.2 x10^3/uL H x10^3/uL (4.8-10.8) RBC 4.00 10^6/uL L 10^6/uL (4.70-6.10) Hgb 11.8 g/dL L g/dL (14.0-18.0) Hct 35.1 % L % (42.0-52.0) MPV 6.5 fL L fL (7.4-11.4) Neut # 14.4 10^3/uL H 10^3/uL (1.5-6.6) Lymph # 0.8 10^3/uL L 10^3/uL (1.5-3.5) PT INR Sodium 132 mmol/L L mmol/L (135-145) Potassium 3.4 mmol/L L mmol/L (3.5-5.0) Chloride 93 mmol/L L mmol/L (101-111) BUN 24 mg/dL H mg/dL (6-20) Creatinine Glucose 158 mg/dL H mg/dL (70-100) Calcium 8.0 mg/dL L mg/dL (8.5-10.3) Magnesium Total Protein 5.8 g/dL L g/dL (6.7-8.2) Albumin 2.5 g/dL L g/dL (3.2-5.5) Albumin/Globulin Ratio 0.8 L (1.0-2.2) Amylase Urine Ketones Urine Occult Blood Urine RBC - EKG Results EKG Interpreted Independently: No - Diagnostic Imaging Results Diagnostic Imaging Results: Final report reviewed Diagnostic Imaging Results Comments: worsening ascites with possible SBO and thickening of the small bowel. - Additional Planning Condition/Complexity: Stable My Orders: My Active Orders 11/03/16 09:00 Sodium Chloride [Salt Tab] 1 gm PO DAILY 11/03/16 14:30 FUROSEMIDE INJ 40mg VIAL [LASIX INJ 40 mg VIAL] 40 mg IVP DAILY 11/03/16 18:00 Ciprofloxacin 400 mg/200 ml [Cipro 400 mg/200 ml] 200 ml IV Q12H 11/03/16 Dinner Regular Diet [DIET] 11/04/16 09:00 Potassium Chloride Oral Soln 20 meq PO DAILYWM Sodium Chloride [Salt Tab] 1 gm PO ONCE Consult/Specialty: OT, PT, Surgery Plan Discussed with:: Patient, Case Management (Patient will continue to need additional overnight treatment. pain is still increasing and patient needs further evaluation for worsening distention of abdomen.) Time Spent: 31-60 minutes Subjective - Subjective Patient Reports: Abdominal Pain, Back Pain, Nausea, Pain Nursing Reports: Constipation, Nausea, Pain (patient wanting to eat but not recommended by staff. trial of breakfast had vomiting and nausea. patient is now NPO but still with abdominal pain) Objective Vital Signs: Vital Signs - 24 hr 11/03/16 11/03/16 11/03/16 09:58 13:09 15:48 Temperature 36.8 C 36.7 C 36.9 C Heart Rate [ 92 87 96 Brachial] Respiratory 18 18 14 Rate Blood Pressure 144/83 H 144/82 H [Left Brachial artery] Blood Pressure 135/79 H [Right Brachial artery] O2 Saturation 98 100 98 11/04/16 11/04/16 00:30 08:23 Temperature 36.4 C L Heart Rate [ 88 Brachial] Respiratory 18 Rate Blood Pressure 148/92 H [Left Brachial artery] Blood Pressure 170/109 H [Right Brachial artery] O2 Saturation 99 100 Oxygen O2 Source Room air I&O (Last 24 Hrs): Intake and Output Totals x24h 11/02/16 11/03/16 11/04/16 23:59 23:59 23:59 Intake Total 220 1297 250 Output Total 1475 2390 850 Balance -6645 -1093 -600 General: Oriented x3, No acute distress HEENT: Atraumatic, PERRLA, EOMI Neck: No JVD, No thyromegaly Lymphatic: no adenopathy Neuro: Alert, CN 2-12 Grossly Intact Cardiovascular: Regular rate, Normal S1, Normal S2 Respiratory: Chest non-tender, No respiratory distress, Breath sounds nml, Other (diminished) Abdomen: Other (tenderness and distention generalized) Rectal: Stool - Heme NEG Extremities: No clubbing, No cyanosis, Normal pulses, Other (edema to upper arms ) Skin: No rashes, No breakdown, No significant lesion - Results Results: Laboratory Results WBC 16.2 x10^3/uL (4.8-10.8) H 11/04/16 06:42 RBC 4.00 10^6/uL (4.70-6.10) L 11/04/16 06:42 Hgb 11.8 g/dL (14.0-18.0) L 11/04/16 06:42 Hct 35.1 % (42.0-52.0) L 11/04/16 06:42 MCV 87.8 fL (80.0-94.0) 11/04/16 06:42 MCH 29.4 pg (27.0-31.0) 11/04/16 06:42 MCHC 33.5 g/dL (32.0-36.0) 11/04/16 06:42 RDW 14.3 % (12.0-15.0) 11/04/16 06:42 Plt Count 381 10^3/uL (130-450) 11/04/16 06:42 MPV 6.5 fL (7.4-11.4) L 11/04/16 06:42 Neut # 14.4 10^3/uL (1.5-6.6) H 11/04/16 06:42 Lymph # 0.8 10^3/uL (1.5-3.5) L 11/04/16 06:42 [place] # 0.9 10^3/uL (0.0-1.0) 11/04/16 06:42 Eos # 0.0 10^3/uL (0.0-0.7) 11/04/16 06:42 Baso # 0.0 10^3/uL (0.0-0.1) 11/04/16 06:42 Absolute Nucleated RBC 0.01 x10^3/uL 11/04/16 06:42 Nucleated RBCs 0.1 /100WBC 11/04/16 06:42 ESR 20 mm/Hr (0-20) 10/29/16 19:52 PT 14.6 secs (9.9-12.6) H 11/02/16 15:57 INR 1.3 (0.8-1.2) H 11/02/16 15:57 APTT 33.5 secs (24.9-33.3) H 10/29/16 19:52 Sodium 132 mmol/L (135-145) L 11/04/16 06:42 Potassium 3.4 mmol/L (3.5-5.0) L 11/04/16 06:42 Chloride 93 mmol/L (101-111) L 11/04/16 06:42 Carbon Dioxide 29 mmol/L (21-32) 11/04/16 06:42 Anion Gap 10.0 (6-13) 11/04/16 06:42 BUN 24 mg/dL (6-20) H 11/04/16 06:42 Creatinine 0.7 mg/dL (0.6-1.2) 11/04/16 06:42 Estimated GFR (MDRD) 114 (>89) 11/04/16 06:42 Glucose 158 mg/dL (70-100) H 11/04/16 06:42 Lactic Acid 0.9 mmol/L (0.5-2.2) 11/03/16 09:24 Calcium 8.0 mg/dL (8.5-10.3) L 11/04/16 06:42 Phosphorus 3.4 mg/dL (2.5-4.6) 11/02/16 15:57 Magnesium 1.8 mg/dL (1.7-2.8) 11/03/16 06:46 Total Bilirubin 0.5 mg/dL (0.2-1.0) 11/04/16 06:42 GGT 15 IU/L (8-55) 11/02/16 15:57 AST 16 IU/L (10-42) 11/04/16 06:42 ALT 11 IU/L (10-60) 11/04/16 06:42 Alkaline Phosphatase 66 IU/L (42-121) 11/04/16 06:42 Ammonia 10.6 umol/L (7-35) 11/02/16 15:57 Lactate Dehydrogenase 125 IU/L (91-225) 11/03/16 09:24 Total Creatine Kinase 34 IU/L (22-269) 11/02/16 15:57 C-Reactive Protein 12.7 mg/dL (0-1.0) H 10/29/16 19:52 B-Natriuretic Peptide 60 pg/mL (5-100) 11/02/16 15:57 Total Protein 5.8 g/dL (6.7-8.2) L 11/04/16 06:42 Albumin 2.5 g/dL (3.2-5.5) L 11/04/16 06:42 Globulin 3.3 g/dL (2.1-4.2) 11/04/16 06:42 Albumin/Globulin Ratio 0.8 (1.0-2.2) L 11/04/16 06:42 Amylase 143 U/L (28-100) H 11/02/16 05:25 Lipase 30 U/L (22-51) 11/02/16 05:25 Urine Color DARK YELLOW 11/02/16 17:00 Urine Clarity CLEAR (CLEAR) 11/02/16 17:00 Urine pH 6.0 PH (5.0-7.5) 11/02/16 17:00 Ur Specific [place] 1.025 (1.002-1.030) 11/02/16 17:00 Urine Protein NEGATIVE mg/dL (NEGATIVE) 11/02/16 17:00 Urine Glucose (UA) NEGATIVE mg/dL (NEGATIVE) 11/02/16 17:00 Urine Ketones 40 mg/dL (NEGATIVE) H 11/02/16 17:00 Urine Occult Blood SMALL (NEGATIVE) H 11/02/16 17:00 Urine Nitrite NEGATIVE (NEGATIVE) 11/02/16 17:00 Urine Bilirubin NEGATIVE (NEGATIVE) 11/02/16 17:00 Urine Urobilinogen 1 (NORMAL) E.U./dL (NORMAL) 11/02/16 17:00 Ur Leukocyte Esterase NEGATIVE (NEGATIVE) 11/02/16 17:00 Urine RBC 6-10 /HPF (0-5) H 11/02/16 17:00 Urine WBC 0-3 /HPF (0-3) 11/02/16 17:00 Ur Squamous Epith Cells NONE SEEN (<= Few) 11/02/16 17:00 Urine Bacteria None Seen /HPF (None Seen) 11/02/16 17:00 Last Dose Date 10/30/16 10/31/16 05:55 Last Dose Time 212110/31/16 05:55 Vancomycin Trough 10.9 ug/mL (5.0-15.0) 10/31/16 05:55 Urine Opiates Screen POSITIVE (NEGATIVE) H 10/30/16 04:35 Ur Oxycodone Screen POSITIVE (NEGATIVE) H 10/30/16 04:35 Urine Methadone Screen NEGATIVE (NEGATIVE) 10/30/16 04:35 Ur Propoxyphene Screen NEGATIVE (NEGATIVE) 10/30/16 04:35 Ur Barbiturates Screen NEGATIVE (NEGATIVE) 10/30/16 04:35 Ur Tricyclics Screen NEGATIVE (NEGATIVE) 10/30/16 04:35 Ur Phencyclidine Scrn NEGATIVE (NEGATIVE) 10/30/16 04:35 Ur Amphetamine Screen POSITIVE (NEGATIVE) H 10/30/16 04:35 U Methamphetamines Scrn POSITIVE (NEGATIVE) H 10/30/16 04:35 U Benzodiazepines Scrn NEGATIVE (NEGATIVE) 10/30/16 04:35 Urine Cocaine Screen NEGATIVE (NEGATIVE) 10/30/16 04:35 U Cannabinoids Screen NEGATIVE (NEGATIVE) 10/30/16 04:35 - Procedures Procedures: Procedures CENTRAL VENOUS CATHETER PLACEMENT WITH GUIDANCE (11/07/14) DRESSING OF WOUND NEC (12/04/12) ESOPHAGOGASTRODUODENOSCOPY [EGD] W/CLOSED BIOPSY (03/02/14) OTHER SKIN & SUBQ I D (12/04/12) SOFT TISSUE INCISION NEC (11/07/14)
[2016-11-04] MEDS ORDERED: SODIUM CHLORIDE 1 GM TABLET PO SCH (09:00)
[2016-11-04] MEDS: cefTRIAXone 1 GM in SODIUM CHLORIDE 0.9% MINIBAG 100 ML IV SCH (10:33)
[2016-11-04] MEDS: POLYETHYLENE GLYCOL 3350 17 GM PACKET PO SCH (10:34)
[2016-11-04] MEDS: DOCUSATE SODIUM 250 MG CAPSULE PO SCH (10:35)
[2016-11-04] MEDS: SENNA 8.6 MG TABLET PO SCH (10:35)
[2016-11-04] MEDS: cloNIDine 0.1 MG TABLET PO SCH ×2 (10:35→20:21)
[2016-11-04] MEDS: POTASSIUM CHLORIDE 20 MEQ/15 ML UDC PO SCH (10:36)
[2016-11-04] MEDS: ENOXAPARIN 40 MG/0.4 ML SYRINGE SUBQ SCH (10:41)
[2016-11-04] MEDS: FUROSEMIDE 40 MG/4 ML VIAL IVP SCH (10:42)
[2016-11-04] MEDS: VANCOMYCIN INJ 1 GM in SODIUM CHLORIDE 0.9% 250 ML IV SCH (11:49)
[2016-11-04] MEDS: SODIUM CHLORIDE 1 GM TABLET PO SCH (11:50)
[2016-11-04] MEDS ORDERED: PROMETHAZINE INJ 25 MG in SODIUM CHLORIDE 0.9% 50 ML IV PRN (14:36)
[2016-11-04] MEDS: cloNIDine 0.1 MG TABLET PO PRN (18:05)
[2016-11-04] MEDS ORDERED: LIDOCAINE VISCOUS 2% 15 ML UDC MM PRN (19:55)
[2016-11-04] MEDS ORDERED: BENZOCAINE SPRAY MM PRN (19:56)
[2016-11-04] MEDS ORDERED: hydrALAZINE INJ 20 MG/ML VIAL IVP SCH (23:18)
[2016-11-05] MEDS: SODIUM CHLORIDE FLUSH 0.9% 10 ML SYRINGE IVP PRN ×9 (00:15→23:49)
[2016-11-05] MEDS: HYDROmorphone 1 MG/ML SYRINGE IVP PRN ×10 (01:59→23:48)
[2016-11-05] MEDS: NS W/20 MEQ KCL 1,000 ML IV SCH ×3 (04:04→18:25)
[2016-11-05] MEDS: CIPROFLOXACIN 400 MG/200 ML 200 ML IV SCH (05:44)
[2016-11-05] MEDS: SODIUM CHLORIDE FLUSH 0.9% 10 ML SYRINGE IVP SCH ×3 (05:45→20:11)
[2016-11-05] MEDS: PANTOPRAZOLE 40 MG TABLET PO SCH (05:46)
[2016-11-05 06:14] LABS: BASOPHILS % (AUTO) 0.2 %; EOSINOPHILS % (AUTO) 0.1 %; HCT - HEMATOCRIT 35.2 % (42.0-52.0); HGB - HEMOGLOBIN 11.6 g/dL (14.0-18.0); LYMPHOCYTES % (AUTO) 3.4 %; MEAN CORPUSCULAR VOLUME 87.9 fL (80.0-94.0); NEUTROPHILS % (AUTO) 92.3 %; RED CELL DISTRIBUTION WIDTH 14.6 % (12.0-15.0); UNCORRECTED WHITE BLOOD COUNT 27.1 x10^3/uL; WHITE BLOOD COUNT 27.1 x10^3/uL (4.8-10.8)
[2016-11-05 06:28] LABS: ALBUMIN/GLOBULIN RATIO 0.8 (1.0-2.2); BILIRUBIN,TOTAL 0.9 mg/dL (0.2-1.0); CALCIUM 8.1 mg/dL (8.5-10.3); CREATININE 0.8 mg/dL (0.6-1.2); MAGNESIUM 1.7 mg/dL (1.7-2.8); POTASSIUM 3.6 mmol/L (3.5-5.0); TOTAL PROTEIN 5.6 g/dL (6.7-8.2)
[2016-11-05 06:47] LABS: BAND NEUTROPHILS % (MANUAL) 9 %; EOSINOPHILS % (MANUAL) 1 %; LYMPHOCYTES % (MANUAL) 7 %; NEUTROPHILS % (MANUAL) 80 %; NP AUTO DIFFERENTIAL? YES; NP MAN DIFFERENTIAL? NO; PLATELET ESTIMATE, MANUAL NORMAL (130-450,000) (NORMAL); TOTAL CELLS COUNTED 100
--- NOTE | 2016-11-05 07:28 | PROVIDER PROGRESS NOTE ---
Assessment/Plan - Problem List (1) Small bowel obstruction Assessment/Plan: acute. continue with NG tube and to intermittent suction. better today. NPO. (2) Pneumonia of left lower lobe due to infectious organism Assessment/Plan: acute. secondary to hospital acquired. will cover for pseudomonas risk. on Cipro and Vancomycin IV now but will change to Zosyn and Levaquin for HAP pneumonia (3) Acute hyponatremia Assessment/Plan: improving. continue with TPN and nutrition following. salt tabs ordered (4) History of COPD Assessment/Plan: chronic. continue with RT support and oxygen, COPD meds (5) Chronic pain syndrome Assessment/Plan: improving. patient pain decreasing since he received an NG tube and not needing as much pain medications. continue with IV pain medications (6) Personal history of malignant neoplasm of pancreas Assessment/Plan: stable. no mets seen in the CT scan today. continue with monitoring of daily labs (7) Cirrhosis of liver with ascites Qualifiers: Hepatic cirrhosis type: unspecified hepatic cirrhosis Qualified Code(s): K74.60 - Unspecified cirrhosis of liver Assessment/Plan: chronic. continue to monitor for ascites and trending transminitis. daily lab draws for electrolytes (8) Low blood magnesium level Assessment/Plan: acute on chronic. replace magnesium with oral now that patient has an NG tube in place. He has good output. will recheck levels in morning with daily lab draw (9) Lower extremity ulceration Qualifiers: Laterality: unspecified laterality Non-pressure ulcer stage: unspecified non-pressure ulcer stage Qualified Code(s): L97.909 - Non-pressure chronic ulcer of unspecified part of unspecified lower leg with unspecified severity Assessment/Plan: acute on chronic. continue to address with wound care and dressing changes with nursing. continue to monitor CBC for elevations in white count. elevation of extremities and encourage ambulation - Current Meds Current Meds: Current Medications Generic Name Dose Route Start Last Admin Trade Name Freq PRN Reason Stop Dose Admin Clonidine HCl 0.1 mg 10/30/16 07:23 11/04/16 18:05 Catapres PO 0.1 mg PRN PRN Administration Blood Pressure Clonidine HCl 0.1 mg 10/31/16 11:00 11/04/16 20:21 Catapres PO 0.1 mg BID RAFA Administration Docusate Sodium 250 - 500 mg 10/31/16 09:00 11/04/16 10:35 Colace 250mg Capsule PO 250 mg DAILY RAFA Administration Enoxaparin Sodium 40 mg 10/30/16 09:00 11/04/16 10:41 Lovenox SUBQ 40 mg DAILY RAFA Administration Furosemide 40 mg 11/03/16 14:30 11/04/16 10:42 Lasix Inj 40 Mg Vial IVP 40 mg DAILY RAFA Administration Heparin Sodium (Beef Lung) 30 - 50 unit 11/03/16 05:39 11/05/16 02:02 IVP 12/03/16 05:39 150 unit ONCE PRN Administration Central Line Protocol (<24 hr) Hydromorphone HCl 1 mg 11/02/16 13:55 11/05/16 05:59 Dilaudid Inj IVP 1 mg Q2HR PRN Administration PAIN Ciprofloxacin 200 mls @ 200 mls/hr 11/03/16 18:00 11/05/16 05:44 Cipro 400 Mg/200 Ml IV 200 mls/hr Q12H RAFA Administration Potassium Chloride/Sodium Chloride 1,000 mls @ 125 mls/hr 11/05/16 04:00 04:04 Normal Saline 0.9% W/20 Meq Kcl IV 125 mls/hr .Q8H RAFA Administration Lidocaine HCl 5 ml 11/04/16 19:55 11/04/16 21:01 Xylocaine Viscous 2% MM 5 ml Q4H PRN Administration Mouth Sore Pain Lorazepam 1 mg 11/04/16 19:55 11/04/16 20:22 Ativan Inj IVP 1 mg Q2HR PRN Administration Anxiety Morphine Sulfate 15 mg 10/29/16 22:03 11/04/16 16:36 Ms Ir PO 15 mg Q4H PRN Administration breakthrough PAIN Morphine Sulfate 30 mg 10/29/16 22:08 11/04/16 20:21 PO 30 mg BID RAFA Administration Ondansetron HCl 4 mg 10/29/16 20:41 11/04/16 08:14 Zofran Odt TL 4 mg Q4HR PRN Administration Nausea / Vomiting Ondansetron HCl 4 mg 10/29/16 20:41 11/04/16 06:48 Zofran Inj IVP 4 mg Q4HR PRN Administration Nausea / Vomiting Pantoprazole Sodium 40 mg 11/01/16 09:00 11/05/16 05:46 Protonix PO Not Given QDAC RAFA Polyethylene Glycol 17 gm 10/30/16 09:00 11/04/16 10:34 Miralax PO 17 gm DAILY RAFA Administration Potassium Chloride 20 meq 11/04/16 09:00 11/04/16 10:36 PO Not Given DAILYWM RAFA Senna 8.6 - 17.2 mg 10/31/16 09:00 11/04/16 10:35 Senokot PO 8.6 mg DAILY RAFA Administration Sodium Chloride 10 ml 10/29/16 20:35 11/05/16 02:00 Normal Saline Flush 0.9% IVP 10 ml PRN PRN Administration NEEDED PER PROVIDER ORDERS Sodium Chloride 10 ml 10/29/16 22:00 11/05/16 05:45 Normal Saline Flush 0.9% IVP 10 ml Q8HR RAFA Administration Sodium Chloride 20 ml 11/03/16 05:39 11/05/16 05:46 Normal Saline Flush 0.9% IVP 20 ml PRN PRN Administration After Blood Draw Sodium Chloride 1 gm 11/03/16 09:00 11/04/16 11:50 Salt Tab PO Not Given DAILY RAFA - Lab Result Lab results reviewed: Yes Fish Bone Diagrams: 11/06/16 05:06 11/06/16 05:06 Other Lab Results: Abnormal Lab Results 11/04/16 11/04/16 11/05/16 06:42 06:42 05:50 WBC 16.2 x10^3/uL H x10^3/uL 27.1 x10^3/uL H x10^3/uL (4.8-10.8) (4.8-10.8) RBC 4.00 10^6/uL L 10^6/uL 4.00 10^6/uL L 10^6/uL (4.70-6.10) (4.70-6.10) Hgb 11.8 g/dL L g/dL 11.6 g/dL L g/dL (14.0-18.0) (14.0-18.0) Hct 35.1 % L % 35.2 % L % (42.0-52.0) (42.0-52.0) Plt Count 454 10^3/uL H 10^3/uL (130-450) MPV 6.5 fL L fL 7.0 fL L fL (7.4-11.4) (7.4-11.4) Neut # 14.4 10^3/uL H 10^3/uL (1.5-6.6) Lymph # 0.8 10^3/uL L 10^3/uL (1.5-3.5) Neutrophils # (Manual) 24.1 10^3/uL H 10^3/uL (1.5-6.6) Sodium 132 mmol/L L mmol/L (135-145) Potassium 3.4 mmol/L L mmol/L (3.5-5.0) Chloride 93 mmol/L L mmol/L (101-111) BUN 24 mg/dL H mg/dL (6-20) Glucose 158 mg/dL H mg/dL (70-100) Calcium 8.0 mg/dL L mg/dL (8.5-10.3) Total Protein 5.8 g/dL L g/dL (6.7-8.2) Albumin 2.5 g/dL L g/dL (3.2-5.5) Albumin/Globulin Ratio 0.8 L (1.0-2.2) 11/05/16 05:50 WBC RBC Hgb Hct Plt Count MPV Neut # Lymph # Neutrophils # (Manual) Sodium 134 mmol/L L mmol/L (135-145) Potassium Chloride 92 mmol/L L mmol/L (101-111) BUN 24 mg/dL H mg/dL (6-20) Glucose 113 mg/dL H mg/dL (70-100) Calcium 8.1 mg/dL L mg/dL (8.5-10.3) Total Protein 5.6 g/dL L g/dL (6.7-8.2) Albumin 2.5 g/dL L g/dL (3.2-5.5) Albumin/Globulin Ratio 0.8 L (1.0-2.2) - EKG Results EKG Interpreted Independently: Yes - Diagnostic Imaging Results Diagnostic Imaging Results: Final report reviewed Diagnostic Imaging Results Comments: acute and worsening SBO with thickening of the rossi of the small bowel, no mets seen - Additional Planning Condition/Complexity: Improved My Orders: My Active Orders 11/04/16 09:00 Potassium Chloride Oral Soln 20 meq PO DAILYWM 11/04/16 14:36 Promethazine Inj [Phenergan Inj] 25 mg Sodium Chloride 0.9% [Normal Saline 0.9 %] 50 ml IV Q6H 11/04/16 19:12 Miscellaenous Nursing Order [RC] QSHIFT 11/04/16 19:55 LORazepam INJ [Ativan Inj] 1 mg IVP Q2HR PRN Lidocaine Viscous 2% [Xylocaine Viscous 2%] 5 ml MM Q4H PRN 11/04/16 19:56 Benzocaine [Hurricaine] 0 sprays MM Q4HR PRN 11/05/16 06:52 Nutrition Consult [CONS] Routine 11/05/16 06:53 Daily Weight [RC] DAILY Dietitian to Assess and Manage Nutrition [CONS] Routine 11/06/16 05:00 CBC - COMP BLD CT W/AUTO DIFF [HEME] Routine COMPREHENSIVE METABOLIC PANEL [CHEM] Routine MAGNESIUM [CHEM] Routine PHOSPHORUS [CHEM] Routine PREALBUMIN [CHEM] Routine PT WITH INR [COAG] Routine TRIGLYCERIDES [CHEM] Routine 11/08/16 05:00 COMPREHENSIVE METABOLIC PANEL [CHEM] Routine MAGNESIUM [CHEM] Routine PHOSPHORUS [CHEM] Routine PREALBUMIN [CHEM] Routine TRIGLYCERIDES [CHEM] Routine 11/10/16 05:00 COMPREHENSIVE METABOLIC PANEL [CHEM] Routine MAGNESIUM [CHEM] Routine PHOSPHORUS [CHEM] Routine PREALBUMIN [CHEM] Routine TRIGLYCERIDES [CHEM] Routine 11/13/16 05:00 CBC - COMP BLD CT W/AUTO DIFF [HEME] Routine COMPREHENSIVE METABOLIC PANEL [CHEM] Routine MAGNESIUM [CHEM] Routine PHOSPHORUS [CHEM] Routine PREALBUMIN [CHEM] Routine PT WITH INR [COAG] Routine TRIGLYCERIDES [CHEM] Routine Consult/Specialty: OT, PT, Surgery Plan Discussed with:: Patient, Case Management Time Spent: 31-60 minutes Additional Planning Notes: Patient has improved since he received the NG tube. He will need another 48 hours for improvement. He is on TPN, has a central line and pain is improving. Subjective - Subjective Patient Reports: Feeling Better, Resting Comfortably, Fatigue Nursing Reports: No Complaints (no cheat pain or shrotness of breath. wants to eat some ice cream) Objective Vital Signs: Vital Signs - 24 hr 11/04/16 11/04/16 11/04/16 08:23 14:39 17:49 Temperature 36.3 C L 36.4 C L Heart Rate [ 89 114 H Brachial] Respiratory 16 18 Rate Blood Pressure Blood Pressure 163/99 H 165/120 H [Left Brachial artery] Blood Pressure 170/109 H [Right Brachial artery] O2 Saturation 100 100 11/04/16 11/04/16 11/04/16 19:13 19:15 22:32 Temperature Heart Rate [ 87 87 90 Brachial] Respiratory Rate Blood Pressure Blood Pressure [Left Brachial artery] Blood Pressure 164/103 H 170/105 H 178/106 H [Right Brachial artery] O2 Saturation 11/05/16 11/05/16 11/05/16 00:13 00:15 00:20 Temperature 36.8 C Heart Rate [ 114 H 119 H Brachial] Respiratory 17 Rate Blood Pressure 163/112 H Blood Pressure 163/112 H 149/102 H [Left Brachial artery] Blood Pressure [Right Brachial artery] O2 Saturation 94 11/05/16 11/05/16 11/05/16 00:25 00:30 00:45 Temperature Heart Rate [ 121 H 123 H 113 H Brachial] Respiratory Rate Blood Pressure Blood Pressure 148/97 H 147/99 H 155/103 H [Left Brachial artery] Blood Pressure [Right Brachial artery] O2 Saturation 11/05/16 11/05/16 11/05/16 01:00 01:16 04:45 Temperature 36.7 C Heart Rate [ 112 H 109 H 104 H Brachial] Respiratory 16 Rate Blood Pressure Blood Pressure 165/100 H 149/96 H 146/91 H [Left Brachial artery] Blood Pressure [Right Brachial artery] O2 Saturation 97 Oxygen O2 Source Room air I&O (Last 24 Hrs): Intake and Output Totals x24h 11/03/16 11/04/16 11/05/16 23:59 23:59 23:59 Intake Total 1297 250 242 Output Total 2390 3053 650 Balance -1093 -2803 -408 General: Alert, Oriented x3, Cooperative, No acute distress HEENT: Atraumatic, PERRLA Neck: Supple, No JVD, No thyromegaly Lymphatic: no adenopathy Neuro: Alert, Disoriented, CN 2-12 Grossly Intact, Oriented Times 3 Cardiovascular: Regular rate, Normal S1, Normal S2 Respiratory: Chest non-tender, No respiratory distress, Wheezes, Other (mild wheeze with diminished sounds in bases) Abdomen: No hepatospenomegaly, Other (improving distention with NG tube placed) Extremities: No clubbing, No cyanosis, Other (improving edema to upper arms and wounds wrapped to lower extremities clean and dry) Skin: No rashes, No breakdown, No significant lesion - Results Results: Laboratory Results WBC 27.1 x10^3/uL (4.8-10.8) H 11/05/16 05:50 RBC 4.00 10^6/uL (4.70-6.10) L 11/05/16 05:50 Hgb 11.6 g/dL (14.0-18.0) L 11/05/16 05:50 Hct 35.2 % (42.0-52.0) L 11/05/16 05:50 MCV 87.9 fL (80.0-94.0) 11/05/16 05:50 MCH 29.0 pg (27.0-31.0) 11/05/16 05:50 MCHC 33.0 g/dL (32.0-36.0) 11/05/16 05:50 RDW 14.6 % (12.0-15.0) 11/05/16 05:50 Plt Count 454 10^3/uL (130-450) H 11/05/16 05:50 MPV 7.0 fL (7.4-11.4) L 11/05/16 05:50 Neut # Not Reportable 11/05/16 05:50 Lymph # Not Reportable 11/05/16 05:50 [place]er # Not Reportable 11/05/16 05:50 Eos # Not Reportable 11/05/16 05:50 Baso # Not Reportable 11/05/16 05:50 Absolute Nucleated RBC Not Reportable 11/05/16 05:50 Total Counted 100 11/05/16 05:50 Band Neuts % (Manual) 9 % (0-10) 11/05/16 05:50 Neutrophils # (Manual) 24.1 10^3/uL (1.5-6.6) H 11/05/16 05:50 Lymphocytes # (Manual) 1.9 10^3/uL (1.5-3.5) 11/05/16 05:50 Monocytes # (Manual) 0.8 10^3/uL (0.0-1.0) 11/05/16 05:50 Eosinophils # (Manual) 0.3 10^3/uL (0-0.7) 11/05/16 05:50 Nucleated RBCs Not Reportable 11/05/16 05:50 Differential Comment MANUAL DIFFERENTIAL 11/05/16 05:50 Platelet Estimate NORMAL (130-450,000) (NORMAL) 11/05/16 05:50 RBC Morph Micro Appear NORMAL APPEARANCE (NORMAL) 11/05/16 05:50 ESR 20 mm/Hr (0-20) 10/29/16 19:52 PT 14.6 secs (9.9-12.6) H 11/02/16 15:57 INR 1.3 (0.8-1.2) H 11/02/16 15:57 APTT 33.5 secs (24.9-33.3) H 10/29/16 19:52 Sodium 134 mmol/L (135-145) L 11/05/16 05:50 Potassium 3.6 mmol/L (3.5-5.0) 11/05/16 05:50 Chloride 92 mmol/L (101-111) L 11/05/16 05:50 Carbon Dioxide 30 mmol/L (21-32) 11/05/16 05:50 Anion Gap 12.0 (6-13) 11/05/16 05:50 BUN 24 mg/dL (6-20) H 11/05/16 05:50 Creatinine 0.8 mg/dL (0.6-1.2) 11/05/16 05:50 Estimated GFR (MDRD) 98 (>89) 11/05/16 05:50 Glucose 113 mg/dL (70-100) H 11/05/16 05:50 Lactic Acid 0.9 mmol/L (0.5-2.2) 11/03/16 09:24 Calcium 8.1 mg/dL (8.5-10.3) L 11/05/16 05:50 Phosphorus 3.4 mg/dL (2.5-4.6) 11/02/16 15:57 Magnesium 1.7 mg/dL (1.7-2.8) 11/05/16 05:50 Total Bilirubin 0.9 mg/dL (0.2-1.0) 11/05/16 05:50 GGT 15 IU/L (8-55) 11/02/16 15:57 AST 15 IU/L (10-42) 11/05/16 05:50 ALT 11 IU/L (10-60) 11/05/16 05:50 Alkaline Phosphatase 62 IU/L (42-121) 11/05/16 05:50 Ammonia 10.6 umol/L (7-35) 11/02/16 15:57 Lactate Dehydrogenase 125 IU/L (91-225) 11/03/16 09:24 Total Creatine Kinase 34 IU/L (22-269) 11/02/16 15:57 C-Reactive Protein 12.7 mg/dL (0-1.0) H 10/29/16 19:52 B-Natriuretic Peptide 60 pg/mL (5-100) 11/02/16 15:57 Total Protein 5.6 g/dL (6.7-8.2) L 11/05/16 05:50 Albumin 2.5 g/dL (3.2-5.5) L 11/05/16 05:50 Globulin 3.1 g/dL (2.1-4.2) 11/05/16 05:50 Albumin/Globulin Ratio 0.8 (1.0-2.2) L 11/05/16 05:50 Amylase 143 U/L (28-100) H 11/02/16 05:25 Lipase 30 U/L (22-51) 11/02/16 05:25 Urine Color DARK YELLOW 11/02/16 17:00 Urine Clarity CLEAR (CLEAR) 11/02/16 17:00 Urine pH 6.0 PH (5.0-7.5) 11/02/16 17:00 Ur Specific [place] 1.025 (1.002-1.030) 11/02/16 17:00 Urine Protein NEGATIVE mg/dL (NEGATIVE) 11/02/16 17:00 Urine Glucose (UA) NEGATIVE mg/dL (NEGATIVE) 11/02/16 17:00 Urine Ketones 40 mg/dL (NEGATIVE) H 11/02/16 17:00 Urine Occult Blood SMALL (NEGATIVE) H 11/02/16 17:00 Urine Nitrite NEGATIVE (NEGATIVE) 11/02/16 17:00 Urine Bilirubin NEGATIVE (NEGATIVE) 11/02/16 17:00 Urine Urobilinogen 1 (NORMAL) E.U./dL (NORMAL) 11/02/16 17:00 Ur Leukocyte Esterase NEGATIVE (NEGATIVE) 11/02/16 17:00 Urine RBC 6-10 /HPF (0-5) H 11/02/16 17:00 Urine WBC 0-3 /HPF (0-3) 11/02/16 17:00 Ur Squamous Epith Cells NONE SEEN (<= Few) 11/02/16 17:00 Urine Bacteria None Seen /HPF (None Seen) 11/02/16 17:00 Last Dose Date 10/30/16 10/31/16 05:55 Last Dose Time 212110/31/16 05:55 Vancomycin Trough 10.9 ug/mL (5.0-15.0) 10/31/16 05:55 Urine Opiates Screen POSITIVE (NEGATIVE) H 10/30/16 04:35 Ur Oxycodone Screen POSITIVE (NEGATIVE) H 10/30/16 04:35 Urine Methadone Screen NEGATIVE (NEGATIVE) 10/30/16 04:35 Ur Propoxyphene Screen NEGATIVE (NEGATIVE) 10/30/16 04:35 Ur Barbiturates Screen NEGATIVE (NEGATIVE) 10/30/16 04:35 Ur Tricyclics Screen NEGATIVE (NEGATIVE) 10/30/16 04:35 Ur Phencyclidine Scrn NEGATIVE (NEGATIVE) 10/30/16 04:35 Ur Amphetamine Screen POSITIVE (NEGATIVE) H 10/30/16 04:35 U Methamphetamines Scrn POSITIVE (NEGATIVE) H 10/30/16 04:35 U Benzodiazepines Scrn NEGATIVE (NEGATIVE) 10/30/16 04:35 Urine Cocaine Screen NEGATIVE (NEGATIVE) 10/30/16 04:35 U Cannabinoids Screen NEGATIVE (NEGATIVE) 10/30/16 04:35 - Procedures Procedures: Procedures CENTRAL VENOUS CATHETER PLACEMENT WITH GUIDANCE (11/07/14) DRESSING OF WOUND NEC (12/04/12) ESOPHAGOGASTRODUODENOSCOPY [EGD] W/CLOSED BIOPSY (03/02/14) OTHER SKIN & SUBQ I D (12/04/12) SOFT TISSUE INCISION NEC (11/07/14)
[2016-11-05] MEDS: FUROSEMIDE 40 MG/4 ML VIAL IVP SCH (08:28)
[2016-11-05] MEDS: cloNIDine 0.1 MG TABLET PO SCH ×2 (08:28→21:31)
[2016-11-05] MEDS: SODIUM CHLORIDE 1 GM TABLET PO SCH (08:29)
[2016-11-05] MEDS: MORPHINE ER 15 MG TABLET PO SCH ×2 (08:29→21:37)
[2016-11-05] MEDS: ENOXAPARIN 40 MG/0.4 ML SYRINGE SUBQ SCH (08:29)
[2016-11-05] MEDS: POTASSIUM CHLORIDE 20 MEQ/15 ML UDC PO SCH (08:44)
[2016-11-05] MEDS: DOCUSATE SODIUM 250 MG CAPSULE PO SCH (08:53)
[2016-11-05] MEDS: POLYETHYLENE GLYCOL 3350 17 GM PACKET PO SCH (08:54)
[2016-11-05] MEDS: SENNA 8.6 MG TABLET PO SCH (08:54)
[2016-11-05] MEDS: DIATR MEGLU/DIATRIZOATE SODIUM 120 ML BOTTLE PO ONE ×2 (11:30→14:46)
[2016-11-05] MEDS ORDERED: IOPAMIDOL-300 100 ML VIAL IVP ONE (14:45)
[2016-11-05] MEDS ORDERED: IOPAMIDOL-300 50 ML VIAL PO ONE (14:45)
--- NOTE | 2016-11-05 15:51 | CT Report ---
CT OF THE ABDOMEN AND PELVIS WITH CONTRAST: 11/05/2016 CLINICAL INDICATION: Distention. COMPARISON: 11/03/2016. TECHNIQUE: Axial CT images of the abdomen and pelvis were obtained with 100 mL of Isovue-300 intraven ously, administered via hand injection through a central line, as well as oral contrast via a nasogas tric tube. FINDINGS: Limited evaluation of the lung bases demonstrates lingular and left lower lobe infiltrates . ABDOMEN: The stomach is decompressed. There is persistent dilatation of proximal and mid small bowel loops, with decompression of the distal ileum, suspicious for small bowel obstruction. The colon is n ow decompressed. A moderate volume of ascites is present. Allowing for the phase of contrast enhancem ent, the liver, spleen, pancreas and adrenal glands appear unremarkable. The gallbladder is not dilat ed. PELVIS: Ascites tracks into the pelvis. The distal colon is decompressed. No pelvic adenopathy is see n. The osseous structures demonstrate degenerative changes. IMPRESSION: 1. LEFT LINGULAR AND LOWER LOBE INFILTRATES, NEW FROM PREVIOUS CHEST CT. 2. PERSISTENT DILATATION OF PROXIMAL AND MID SMALL BOWEL LOOPS, WITH DECOMPRESSED DISTAL SMALL BOWEL, SUGGESTIVE OF SMALL BOWEL OBSTRUCTION. 3. STABLE ASCITES. In accordance with CT protocol optimization, one or more of the following dose reduction techniques w ere utilized for this exam: automated exposure control, adjustment of mA and/or KV based on patient size, or use of iterative reconstructive technique. JOB #: [id number] EXT JOB #:[id number]
[2016-11-05] MEDS: LORazepam 2 MG/ML SYRINGE IVP PRN ×2 (17:58→23:10)
[2016-11-05] MEDS: PIPERACILLIN/TAZOBACTAM 4.5 GM in SODIUM CHLORIDE 0.9% MINIBAG 100 ML IV SCH ×2 (18:25→23:48)
[2016-11-05] MEDS: FAT EMULSION 20% 250 ML IV SCH (20:10)
[2016-11-05] MEDS: TPN (CLINIMIX E 5/15) 2,000 ML with MULTIVITAMIN 10 ML, TRACE ELEMENTS V CONC 1 ML, POT... IV SCH ×5 (20:10)
[2016-11-05] MEDS ORDERED: SODIUM CHLORIDE 0.9% MINIBAG 100 ML IV ONE (23:48)
[2016-11-06] MEDS: HYDROmorphone 1 MG/ML SYRINGE IVP PRN ×9 (02:34→22:58)
[2016-11-06] MEDS: SODIUM CHLORIDE FLUSH 0.9% 10 ML SYRINGE IVP PRN ×5 (02:35→10:13)
[2016-11-06] MEDS: NS W/20 MEQ KCL 1,000 ML IV SCH (03:50)
[2016-11-06] MEDS: LORazepam 2 MG/ML SYRINGE IVP PRN ×3 (03:50→19:49)
[2016-11-06] MEDS: SODIUM CHLORIDE FLUSH 0.9% 10 ML SYRINGE IVP SCH ×3 (05:04→17:18)
[2016-11-06] MEDS: PIPERACILLIN/TAZOBACTAM 4.5 GM in SODIUM CHLORIDE 0.9% MINIBAG 100 ML IV SCH ×3 (05:20→17:28)
[2016-11-06] MEDS: PANTOPRAZOLE 40 MG TABLET PO SCH (05:51)
[2016-11-06 05:58] LABS: BASOPHILS % (AUTO) 0.3 %; EOSINOPHILS % (AUTO) 0.2 %; HGB - HEMOGLOBIN 8.4 g/dL (14.0-18.0); LYMPHOCYTES # (AUTO) 0.6 10^3/uL (1.5-3.5); MEAN CORPUSCULAR HEMOGLOBIN 28.7 pg (27.0-31.0); MEAN CORPUSCULAR HGB CONC 32.5 g/dL (32.0-36.0); MEAN CORPUSCULAR VOLUME 88.2 fL (80.0-94.0); MEAN PLATELET VOLUME 7.2 fL (7.4-11.4); MONOCYTES # (AUTO) 0.5 10^3/uL (0.0-1.0); MONOCYTES % (AUTO) 3.9 %; NEUTROPHILS # (AUTO) 11.6 10^3/uL (1.5-6.6); NEUTROPHILS % (AUTO) 90.6 %; RED BLOOD COUNT 2.94 10^6/uL (4.70-6.10); RED CELL DISTRIBUTION WIDTH 14.6 % (12.0-15.0); UNCORRECTED WHITE BLOOD COUNT 12.7 x10^3/uL; WHITE BLOOD COUNT 12.7 x10^3/uL (4.8-10.8)
[2016-11-06 06:04] LABS: INR 1.5 (0.8-1.2); PT - PROTHROMBIN TIME 16.7 secs (9.9-12.6)
[2016-11-06 06:09] LABS: ALBUMIN/GLOBULIN RATIO 0.7 (1.0-2.2); BILIRUBIN,TOTAL 0.5 mg/dL (0.2-1.0); BUN - BLOOD UREA NITROGEN 18 mg/dL (6-20); CALCIUM 7.6 mg/dL (8.5-10.3); CARBON DIOXIDE - CO2 31 mmol/L (21-32); CHLORIDE 97 mmol/L (101-111); CREATININE 0.7 mg/dL (0.6-1.2); GFR - MDRD 114 (>89); GLUCOSE 128 mg/dL (70-100); MAGNESIUM 1.8 mg/dL (1.7-2.8); PHOSPHORUS 1.9 mg/dL (2.5-4.6); POTASSIUM 3.5 mmol/L (3.5-5.0); PREALBUMIN 4 mg/dL (18-45); SODIUM 134 mmol/L (135-145); TOTAL PROTEIN 5.5 g/dL (6.7-8.2); TRIGLYCERIDES 79 mg/dL
--- NOTE | 2016-11-06 07:41 | PROVIDER PROGRESS NOTE ---
Assessment/Plan - Problem List (1) Anemia due to acute blood loss Assessment/Plan: acute. possibly due to NG tube placement and suction and hx of cancer. will get anemia studies and give protonix 80mg IV daily. monitor CBC and type and screen. patient also has a B12 level at 250 with slight B12 deficiency. Vitamin B12 injection given (2) Small bowel obstruction Assessment/Plan: improving. continue on NPO and with NG tube. monitor output to intermittent suction. (3) Low serum phosphorus for age Assessment/Plan: acute. patient is received TPN and has an NG tube. will give Neutra Phos 1 pack with meals and continue to monitor labs with daily draws. (4) Pneumonia of left lower lobe due to infectious organism Assessment/Plan: improving. white blood count is decreased from 27 to 12 and patient is feeling better. continue with RT support and supplemental oxygen. Duoneb treatments with RT and nursing. continue on Zosyn and Levaquin IV (5) Acute hyponatremia Assessment/Plan: improving. continue with TPN and adjust as necessary with nutrition following. monitor with daily lab draws (6) History of COPD Assessment/Plan: chronic. on supplemental oxygen 2 liters NC and continue with COPD meds and Duonebs (7) Chronic pain syndrome Assessment/Plan: chronic. continue with pain medications as prescribed with IV dilaudid PRN (8) Personal history of malignant neoplasm of pancreas Assessment/Plan: stable. CT of abdomen did not show a metastasis in the abdomen at this time. (9) Cirrhosis of liver with ascites Qualifiers: Hepatic cirrhosis type: unspecified hepatic cirrhosis Qualified Code(s): K74.60 - Unspecified cirrhosis of liver Assessment/Plan: chronic. continue to follow LFTs and bilirubin. monitor with daily labs. distention in abdomen has improved with NG tube placement (10) Lower extremity ulceration Qualifiers: Laterality: unspecified laterality Non-pressure ulcer stage: unspecified non-pressure ulcer stage Qualified Code(s): L97.909 - Non-pressure chronic ulcer of unspecified part of unspecified lower leg with unspecified severity Assessment/Plan: improving. continue with antibiotics prescribed and with wounds care treatments. elevation and ambulation recommended (11) Low blood magnesium level Assessment/Plan: resolved. continue to monitor with daily lab draws - Current Meds Current Meds: Current Medications Generic Name Dose Route Start Last Admin Trade Name Freq PRN Reason Stop Dose Admin Clonidine HCl 0.1 mg 10/30/16 07:23 11/04/16 18:05 Catapres PO 0.1 mg PRN PRN Administration Blood Pressure Clonidine HCl 0.1 mg 10/31/16 11:00 11/05/16 21:31 Catapres PO 0.1 mg BID RAFA Administration Docusate Sodium 250 - 500 mg 10/31/16 09:00 11/05/16 08:53 Colace 250mg Capsule PO Not Given DAILY [facility] Enoxaparin Sodium 40 mg 10/30/16 09:00 11/05/16 08:29 Lovenox SUBQ 40 mg DAILY RAFA Administration Furosemide 40 mg 11/03/16 14:30 11/05/16 08:28 Lasix Inj 40 Mg Vial IVP 40 mg DAILY RAFA Administration Heparin Sodium (Beef Lung) 30 - 50 unit 11/03/16 05:39 11/05/16 02:02 IVP 12/03/16 05:39 150 unit ONCE PRN Administration Central Line Protocol (<24 hr) Hydromorphone HCl 1 mg 11/02/16 13:55 11/06/16 05:43 Dilaudid Inj IVP 1 mg Q2HR PRN Administration PAIN Potassium Chloride/Sodium Chloride 1,000 mls @ 125 mls/hr 11/05/16 04:00 03:50 Normal Saline 0.9% W/20 Meq Kcl IV 125 mls/hr .Q8H RAFA Administration Multivitamins 10 ml/ Chromium/ 2,033.5 mls @ 55 mls/hr 11/05/16 19:00 11/05/16 20:10 Copper/Manganese/Seleni/Zn 1 IV 55 mls/hr ml/ Potassium Chloride 40 meq/ Q24H RAFA Administration Magnesium Sulfate 1.25 gm/ Protocol Amino Ac/Electrol/Dextrose/ Calcium Fat Emulsion Intravenous 250 mls @ 21 mls/hr 11/05/16 19:00 11/05/16 20:10 Intralipid 20% IV 21 mls/hr Q24H RAFA Administration Levofloxacin 150 mls @ 100 mls/hr 11/05/16 16:00 11/05/16 16:50 Levaquin 750 Mg/150 Ml IV 100 mls/hr Q24H RAFA Administration Piperacillin Sod/Tazobactam 100 mls @ 100 mls/hr 11/05/16 18:00 11/06/16 05:20 Sod 4.5 gm/ Sodium Chloride IV 100 mls/hr Q6HR RAFA Administration Lidocaine HCl 5 ml 11/04/16 19:55 11/04/16 21:01 Xylocaine Viscous 2% MM 5 ml Q4H PRN Administration Mouth Sore Pain Lorazepam 1 mg 11/04/16 19:55 11/06/16 03:50 Ativan Inj IVP 1 mg Q2HR PRN Administration Anxiety Morphine Sulfate 15 mg 10/29/16 22:03 11/04/16 16:36 Ms Ir PO 15 mg Q4H PRN Administration breakthrough PAIN Morphine Sulfate 30 mg 10/29/16 22:08 11/05/16 21:37 PO 30 mg BID RAFA Administration Ondansetron HCl 4 mg 10/29/16 20:41 11/04/16 08:14 Zofran Odt TL 4 mg Q4HR PRN Administration Nausea / Vomiting Ondansetron HCl 4 mg 10/29/16 20:41 11/04/16 06:48 Zofran Inj IVP 4 mg Q4HR PRN Administration Nausea / Vomiting Pantoprazole Sodium 40 mg 11/01/16 09:00 11/06/16 05:51 Protonix PO 40 mg QDAC RAFA Administration Polyethylene Glycol 17 gm 10/30/16 09:00 11/05/16 08:54 Miralax PO Not Given DAILY RAFA Senna 8.6 - 17.2 mg 10/31/16 09:00 11/05/16 08:54 Senokot PO Not Given DAILY RAFA Sodium Chloride 10 ml 10/29/16 20:35 11/06/16 05:04 Normal Saline Flush 0.9% IVP 10 ml PRN PRN Administration NEEDED PER PROVIDER ORDERS Sodium Chloride 10 ml 10/29/16 22:00 11/06/16 05:04 Normal Saline Flush 0.9% IVP 10 ml Q8HR RAFA Administration Sodium Chloride 20 ml 11/03/16 05:39 11/06/16 05:04 Normal Saline Flush 0.9% IVP 20 ml PRN PRN Administration After Blood Draw Sodium Chloride 1 gm 11/03/16 09:00 11/05/16 08:29 Salt Tab PO 1 gm DAILY RAFA Administration - Lab Result Lab results reviewed: Yes Fish Bone Diagrams: 11/06/16 05:06 11/06/16 05:06 Other Lab Results: Abnormal Lab Results 11/05/16 11/05/16 11/06/16 05:50 05:50 05:06 WBC 27.1 x10^3/uL H x10^3/uL 12.7 x10^3/uL H x10^3/uL (4.8-10.8) (4.8-10.8) RBC 4.00 10^6/uL L 10^6/uL 2.94 10^6/uL L 10^6/uL (4.70-6.10) (4.70-6.10) Hgb 11.6 g/dL L g/dL 8.4 g/dL L g/dL (14.0-18.0) (14.0-18.0) Hct 35.2 % L % 26.0 % L % (42.0-52.0) (42.0-52.0) Plt Count 454 10^3/uL H 10^3/uL (130-450) MPV 7.0 fL L fL 7.2 fL L fL (7.4-11.4) (7.4-11.4) Neut # 11.6 10^3/uL H 10^3/uL (1.5-6.6) Lymph # 0.6 10^3/uL L 10^3/uL (1.5-3.5) Neutrophils # (Manual) 24.1 10^3/uL H 10^3/uL (1.5-6.6) PT INR Sodium 134 mmol/L L mmol/L (135-145) Chloride 92 mmol/L L mmol/L (101-111) BUN 24 mg/dL H mg/dL (6-20) Glucose 113 mg/dL H mg/dL (70-100) Calcium 8.1 mg/dL L mg/dL (8.5-10.3) Phosphorus ALT Total Protein 5.6 g/dL L g/dL (6.7-8.2) Albumin 2.5 g/dL L g/dL (3.2-5.5) Albumin/Globulin Ratio 0.8 L (1.0-2.2) Prealbumin 11/06/16 11/06/16 05:06 05:06 WBC RBC Hgb Hct Plt Count MPV Neut # Lymph # Neutrophils # (Manual) PT 16.7 secs H secs (9.9-12.6) INR 1.5 H (0.8-1.2) Sodium 134 mmol/L L mmol/L (135-145) Chloride 97 mmol/L L mmol/L (101-111) BUN Glucose 128 mg/dL H mg/dL (70-100) Calcium 7.6 mg/dL L mg/dL (8.5-10.3) Phosphorus 1.9 mg/dL L mg/dL (2.5-4.6) ALT < 10 IU/L L IU/L (10-60) Total Protein 5.5 g/dL L g/dL (6.7-8.2) Albumin 2.2 g/dL L g/dL (3.2-5.5) Albumin/Globulin Ratio 0.7 L (1.0-2.2) Prealbumin 4 mg/dL L mg/dL (18-45) - EKG Results EKG Interpreted Independently: No - Additional Planning Condition/Complexity: Improved My Orders: My Active Orders 11/05/16 06:52 Nutrition Consult [CONS] Routine 11/05/16 06:53 Daily Weight [RC] DAILY Dietitian to Assess and Manage Nutrition [CONS] Routine 11/05/16 15:59 GRAM STAIN [RM] Routine 11/05/16 16:00 levoFLOXacin 750 MG/150 ML [Levaquin 750 mg/150 ml] 150 ml IV Q24H 11/05/16 17:09 CULTURE, BLOOD (NOTE DRAW #) [RM] Routine 11/05/16 18:00 Piperacillin/Tazobactam [Zosyn] 4.5 gm Sodium Chloride 0.9% Minibag [Normal Saline 0.9% Minibag] 100 ml IV Q6HR 11/05/16 19:00 Fat Emulsion 20% [Intralipid 20%] 250 ml IV Q24H Multivitamin [Infuvite] 10 ml Trace Elements V Conc [Multitrace-5 Conc Vial] 1 ml Potassium Chloride Inj 40 meq Magnesium Sulfate 1.25 gm TPN (Clinimix E 5/ 15) [Clinimix E 5%-15% Solution] 2,000 ml IV Q24H 11/06/16 07:37 TYPE AND SCREEN Stat 11/06/16 08:00 Neutra-Phos [K-Phos Neutral] 250 mg PO TIDWM 11/08/16 05:00 COMPREHENSIVE METABOLIC PANEL [CHEM] Routine MAGNESIUM [CHEM] Routine PHOSPHORUS [CHEM] Routine PREALBUMIN [CHEM] Routine TRIGLYCERIDES [CHEM] Routine 11/10/16 05:00 COMPREHENSIVE METABOLIC PANEL [CHEM] Routine MAGNESIUM [CHEM] Routine PHOSPHORUS [CHEM] Routine PREALBUMIN [CHEM] Routine TRIGLYCERIDES [CHEM] Routine 11/13/16 05:00 CBC - COMP BLD CT W/AUTO DIFF [HEME] Routine COMPREHENSIVE METABOLIC PANEL [CHEM] Routine MAGNESIUM [CHEM] Routine PHOSPHORUS [CHEM] Routine PREALBUMIN [CHEM] Routine PT WITH INR [COAG] Routine TRIGLYCERIDES [CHEM] Routine Consult/Specialty: OT, PT, Surgery (Patient status has improved but still has NGtube with >500cc out of bilious dark output. He has pain but improved. distention of abdomen has improved. He will need an additional 2-3 nights stay before discharge), Other (nutrition) Plan Discussed with:: Patient, Case Management Time Spent: 31-60 minutes Subjective - Subjective Patient Reports: Fatigue, Pain Nursing Reports: No Complaints (patient states he is really tired and not feeling like getting up and moving around. he is still complaining about some pain. he denies shortness of breath or chest pain. He wants to eat. he did eat some sherbert today without nausea.) Objective Vital Signs: Vital Signs - 24 hr 11/05/16 11/05/16 11/06/16 09:43 16:17 00:58 Temperature 37.2 C 36.5 C 37.4 C Heart Rate [ 102 H 94 94 Brachial] Respiratory 18 16 16 Rate Blood Pressure 149/88 H [Left Brachial artery] Blood Pressure 138/71 H 135/70 H [Right Brachial artery] O2 Saturation 95 94 96 Oxygen O2 Source Room air I&O (Last 24 Hrs): Intake and Output Totals x24h 11/04/16 11/05/16 11/06/16 23:59 23:59 23:59 Intake Total 734 524 6599 Output Total 3053 2925 400 Balance -2803 -2441 1304 General: Alert, Oriented x3, Cooperative, No acute distress HEENT: PERRLA Neck: No JVD, No thyromegaly Lymphatic: no adenopathy Neuro: Alert, Oriented Times 3 Cardiovascular: Regular rate, Normal S1, Normal S2, No murmurs Respiratory: Chest non-tender, No respiratory distress, Wheezes Abdomen: Soft, No tenderness, Other (hypoactive bowel, distention is improving) Genitourinary: Normal Inspection Rectal: Stool - Heme POS (guaiac positive in emesis) Extremities: No clubbing, No cyanosis, Normal pulses, Other (edema improving to upper extremities) Skin: No rashes, No breakdown, No significant lesion - Results Results: Laboratory Results WBC 12.7 x10^3/uL (4.8-10.8) H 11/06/16 05:06 RBC 2.94 10^6/uL (4.70-6.10) L 11/06/16 05:06 Hgb 8.4 g/dL (14.0-18.0) L 11/06/16 05:06 Hct 26.0 % (42.0-52.0) L 11/06/16 05:06 MCV 88.2 fL (80.0-94.0) 11/06/16 05:06 MCH 28.7 pg (27.0-31.0) 11/06/16 05:06 MCHC 32.5 g/dL (32.0-36.0) 11/06/16 05:06 RDW 14.6 % (12.0-15.0) 11/06/16 05:06 Plt Count 255 10^3/uL (130-450) 11/06/16 05:06 MPV 7.2 fL (7.4-11.4) L 11/06/16 05:06 Neut # 11.6 10^3/uL (1.5-6.6) H 11/06/16 05:06 Lymph # 0.6 10^3/uL (1.5-3.5) L 11/06/16 05:06 [place] # 0.5 10^3/uL (0.0-1.0) 11/06/16 05:06 Eos # 0.0 10^3/uL (0.0-0.7) 11/06/16 05:06 Baso # 0.0 10^3/uL (0.0-0.1) 11/06/16 05:06 Absolute Nucleated RBC 0.00 x10^3/uL 11/06/16 05:06 Total Counted 100 11/05/16 05:50 Band Neuts % (Manual) 9 % (0-10) 11/05/16 05:50 Neutrophils # (Manual) 24.1 10^3/uL (1.5-6.6) H 11/05/16 05:50 Lymphocytes # (Manual) 1.9 10^3/uL (1.5-3.5) 11/05/16 05:50 Monocytes # (Manual) 0.8 10^3/uL (0.0-1.0) 11/05/16 05:50 Eosinophils # (Manual) 0.3 10^3/uL (0-0.7) 11/05/16 05:50 Nucleated RBCs 0.0 /100WBC 11/06/16 05:06 Differential Comment MANUAL DIFFERENTIAL 11/05/16 05:50 Platelet Estimate NORMAL (130-450,000) (NORMAL) 11/05/16 05:50 RBC Morph Micro Appear NORMAL APPEARANCE (NORMAL) 11/05/16 05:50 ESR 20 mm/Hr (0-20) 10/29/16 19:52 PT 16.7 secs (9.9-12.6) H 11/06/16 05:06 INR 1.5 (0.8-1.2) H 11/06/16 05:06 APTT 33.5 secs (24.9-33.3) H 10/29/16 19:52 Sodium 134 mmol/L (135-145) L 11/06/16 05:06 Potassium 3.5 mmol/L (3.5-5.0) 11/06/16 05:06 Chloride 97 mmol/L (101-111) L 11/06/16 05:06 Carbon Dioxide 31 mmol/L (21-32) 11/06/16 05:06 Anion Gap 6.0 (6-13) 11/06/16 05:06 BUN 18 mg/dL (6-20) 11/06/16 05:06 Creatinine 0.7 mg/dL (0.6-1.2) 11/06/16 05:06 Estimated GFR (MDRD) 114 (>89) 11/06/16 05:06 Glucose 128 mg/dL (70-100) H 11/06/16 05:06 Lactic Acid 0.9 mmol/L (0.5-2.2) 11/03/16 09:24 Calcium 7.6 mg/dL (8.5-10.3) L 11/06/16 05:06 Phosphorus 1.9 mg/dL (2.5-4.6) L 11/06/16 05:06 Magnesium 1.8 mg/dL (1.7-2.8) 11/06/16 05:06 Total Bilirubin 0.5 mg/dL (0.2-1.0) 11/06/16 05:06 GGT 15 IU/L (8-55) 11/02/16 15:57 AST 17 IU/L (10-42) 11/06/16 05:06 ALT < 10 IU/L (10-60) L 11/06/16 05:06 Alkaline Phosphatase 57 IU/L (42-121) 11/06/16 05:06 Ammonia 10.6 umol/L (7-35) 11/02/16 15:57 Lactate Dehydrogenase 125 IU/L (91-225) 11/03/16 09:24 Total Creatine Kinase 34 IU/L (22-269) 11/02/16 15:57 C-Reactive Protein 12.7 mg/dL (0-1.0) H 10/29/16 19:52 B-Natriuretic Peptide 60 pg/mL (5-100) 11/02/16 15:57 Total Protein 5.5 g/dL (6.7-8.2) L 11/06/16 05:06 Albumin 2.2 g/dL (3.2-5.5) L 11/06/16 05:06 Globulin 3.3 g/dL (2.1-4.2) 11/06/16 05:06 Albumin/Globulin Ratio 0.7 (1.0-2.2) L 11/06/16 05:06 Prealbumin 4 mg/dL (18-45) L 11/06/16 05:06 Triglycerides 79 mg/dL (-149) 11/06/16 05:06 Amylase 143 U/L (28-100) H 11/02/16 05:25 Lipase 30 U/L (22-51) 11/02/16 05:25 Urine Color DARK YELLOW 11/02/16 17:00 Urine Clarity CLEAR (CLEAR) 11/02/16 17:00 Urine pH 6.0 PH (5.0-7.5) 11/02/16 17:00 Ur Specific [place] 1.025 (1.002-1.030) 11/02/16 17:00 Urine Protein NEGATIVE mg/dL (NEGATIVE) 11/02/16 17:00 Urine Glucose (UA) NEGATIVE mg/dL (NEGATIVE) 11/02/16 17:00 Urine Ketones 40 mg/dL (NEGATIVE) H 11/02/16 17:00 Urine Occult Blood SMALL (NEGATIVE) H 11/02/16 17:00 Urine Nitrite NEGATIVE (NEGATIVE) 11/02/16 17:00 Urine Bilirubin NEGATIVE (NEGATIVE) 11/02/16 17:00 Urine Urobilinogen 1 (NORMAL) E.U./dL (NORMAL) 11/02/16 17:00 Ur Leukocyte Esterase NEGATIVE (NEGATIVE) 11/02/16 17:00 Urine RBC 6-10 /HPF (0-5) H 11/02/16 17:00 Urine WBC 0-3 /HPF (0-3) 11/02/16 17:00 Ur Squamous Epith Cells NONE SEEN (<= Few) 11/02/16 17:00 Urine Bacteria None Seen /HPF (None Seen) 11/02/16 17:00 Last Dose Date 10/30/16 10/31/16 05:55 Last Dose Time 212110/31/16 05:55 Vancomycin Trough 10.9 ug/mL (5.0-15.0) 10/31/16 05:55 Urine Opiates Screen POSITIVE (NEGATIVE) H 10/30/16 04:35 Ur Oxycodone Screen POSITIVE (NEGATIVE) H 10/30/16 04:35 Urine Methadone Screen NEGATIVE (NEGATIVE) 10/30/16 04:35 Ur Propoxyphene Screen NEGATIVE (NEGATIVE) 10/30/16 04:35 Ur Barbiturates Screen NEGATIVE (NEGATIVE) 10/30/16 04:35 Ur Tricyclics Screen NEGATIVE (NEGATIVE) 10/30/16 04:35 Ur Phencyclidine Scrn NEGATIVE (NEGATIVE) 10/30/16 04:35 Ur Amphetamine Screen POSITIVE (NEGATIVE) H 10/30/16 04:35 U Methamphetamines Scrn POSITIVE (NEGATIVE) H 10/30/16 04:35 U Benzodiazepines Scrn NEGATIVE (NEGATIVE) 10/30/16 04:35 Urine Cocaine Screen NEGATIVE (NEGATIVE) 10/30/16 04:35 U Cannabinoids Screen NEGATIVE (NEGATIVE) 10/30/16 04:35 - Procedures Procedures: Procedures CENTRAL VENOUS CATHETER PLACEMENT WITH GUIDANCE (11/07/14) DRESSING OF WOUND NEC (12/04/12) ESOPHAGOGASTRODUODENOSCOPY [EGD] W/CLOSED BIOPSY (03/02/14) OTHER SKIN & SUBQ I D (12/04/12) SOFT TISSUE INCISION NEC (11/07/14)
[2016-11-06] MEDS ORDERED: PANTOPRAZOLE 40 MG VIAL IV SCH (09:00)
[2016-11-06] MEDS: FUROSEMIDE 40 MG/4 ML VIAL IVP SCH (10:12)
[2016-11-06] MEDS: MORPHINE ER 15 MG TABLET PO SCH ×2 (10:16→20:01)
[2016-11-06] MEDS: NEUTRA-PHOS 250 MG TABLET PO SCH ×3 (10:16→17:03)
[2016-11-06] MEDS: ENOXAPARIN 40 MG/0.4 ML SYRINGE SUBQ SCH (10:16)
[2016-11-06] MEDS: cloNIDine 0.1 MG TABLET PO SCH ×2 (10:16→20:01)
[2016-11-06] MEDS: SODIUM CHLORIDE 1 GM TABLET PO SCH (10:16)
[2016-11-06 10:50] LABS: IMMATURE RETIC FRACTION 0.42; RED BLOOD COUNT 2.9 10^6/uL (4.70-6.10)
[2016-11-06 11:18] LABS: FERRITIN 226.2 ng/mL (23.9-336.2)
[2016-11-06 11:28] LABS: IRON < 6 ug/dL (45-182); TOTAL IRON BINDING CAPACITY 155 ug/dL (250-450); TRANSFERRIN 111 mg/dL (180-329)
[2016-11-06 11:34] LABS: GASTROCCULT Negative (Negative); GASTROCCULT NEG QC NEGATIVE (NEGATIVE); GASTROCCULT POS QC POSITIVE (Positive)
[2016-11-06] MEDS ORDERED: CYANOCOBALAMIN 1,000 MCG/ML VIAL IM ONE (13:00)
[2016-11-06] MEDS: PANTOPRAZOLE 40 MG VIAL IVP SCH ×2 (13:04→20:02)
[2016-11-06] MEDS: POLYETHYLENE GLYCOL 3350 17 GM PACKET PO SCH (13:04)
[2016-11-06] MEDS: DOCUSATE SODIUM 250 MG CAPSULE PO SCH (13:04)
[2016-11-06] MEDS: SENNA 8.6 MG TABLET PO SCH (13:05)
[2016-11-06] MEDS ORDERED: CYANOCOBALAMIN 1,000 MCG/ML VIAL IM SCH (16:00)
[2016-11-06] MEDS: TPN (CLINIMIX E 5/15) 2,000 ML with MULTIVITAMIN 10 ML, TRACE ELEMENTS V CONC 1 ML, POT... IV SCH ×5 (19:00)
[2016-11-06] MEDS: FAT EMULSION 20% 250 ML IV SCH (19:00)
[2016-11-07] MEDS: PIPERACILLIN/TAZOBACTAM 4.5 GM in SODIUM CHLORIDE 0.9% MINIBAG 100 ML IV SCH ×4 (00:14→17:06)
[2016-11-07] MEDS: HYDROmorphone 1 MG/ML SYRINGE IVP PRN ×7 (01:47→21:19)
[2016-11-07] MEDS: SODIUM CHLORIDE FLUSH 0.9% 10 ML SYRINGE IVP SCH ×3 (05:49→16:07)
--- NOTE | 2016-11-07 07:38 | PROVIDER PROGRESS NOTE ---
Assessment/Plan - Problem List (1) Pneumonia of left lower lobe due to infectious organism Assessment/Plan: acute but resolving. continue with antibiotics IV and will transition to oral prior to discharge. blood cultures pending (2) Anemia due to acute blood loss Assessment/Plan: acute on chronic with iron deficiency. iron level is less than 6 however ferritin normal but low and may be elevated due to illness. venofer 300mg IV ordered. and will follow CBC daily with lab draws. hemoglobin has been low. (3) Small bowel obstruction Assessment/Plan: acute but resolving. continue with NG tube and continue with monitoring output. once low will consider removing tube and start to advance diet. (4) Low serum phosphorus for age Assessment/Plan: acute and resolving. continue to give neutraphos and monitor level with daily lab draws (5) Acute hyponatremia Assessment/Plan: acute and resolving. continue to monitor level with daily lab draws (6) History of COPD Assessment/Plan: chronic. continue with supplemental oxygen as needed. Duoneb treatments as needed and RT support (7) Chronic pain syndrome Assessment/Plan: chronic. continue with pain medication home dosage (8) Personal history of malignant neoplasm of pancreas Assessment/Plan: chronic and resolved. continue to monitor CBC and electrolytes (9) Cirrhosis of liver with ascites Qualifiers: Hepatic cirrhosis type: unspecified hepatic cirrhosis Qualified Code(s): K74.60 - Unspecified cirrhosis of liver Assessment/Plan: chronic. continue to monitor LFT and for mental changes. avoid drugs that cause worsening toxicity of liver (10) Lower extremity ulceration Qualifiers: Laterality: unspecified laterality Non-pressure ulcer stage: unspecified non-pressure ulcer stage Qualified Code(s): L97.909 - Non-pressure chronic ulcer of unspecified part of unspecified lower leg with unspecified severity Assessment/Plan: acute improving and will continue on antibiotics with wounds care and outpatient treatment to follow (11) Low blood magnesium level Assessment/Plan: acute but resolving. continue with IV magnesium and monitor with daily lab draws - Current Meds Current Meds: Current Medications Generic Name Dose Route Start Last Admin Trade Name Freq PRN Reason Stop Dose Admin Clonidine HCl 0.1 mg 10/30/16 07:23 11/04/16 18:05 Catapres PO 0.1 mg PRN PRN Administration Blood Pressure Clonidine HCl 0.1 mg 10/31/16 11:00 11/06/16 20:01 Catapres PO 0.1 mg BID RAFA Administration Docusate Sodium 250 - 500 mg 10/31/16 09:00 11/06/16 13:04 Colace 250mg Capsule PO Not Given DAILY [facility] Enoxaparin Sodium 40 mg 10/30/16 09:00 11/06/16 10:16 Lovenox SUBQ 40 mg DAILY RAFA Administration Furosemide 40 mg 11/03/16 14:30 11/06/16 10:12 Lasix Inj 40 Mg Vial IVP 40 mg DAILY RAFA Administration Heparin Sodium (Beef Lung) 30 - 50 unit 11/03/16 05:39 11/05/16 02:02 IVP 12/03/16 05:39 150 unit ONCE PRN Administration Central Line Protocol (<24 hr) Hydromorphone HCl 1 mg 11/02/16 13:55 11/07/16 06:51 Dilaudid Inj IVP 1 mg Q2HR PRN Administration PAIN Multivitamins 10 ml/ Chromium/ 2,033.5 mls @ 55 mls/hr 11/05/16 19:00 11/06/16 19:00 Copper/Manganese/Seleni/Zn 1 IV 55 mls/hr ml/ Potassium Chloride 40 meq/ Q24H RAFA Administration Magnesium Sulfate 1.25 gm/ Protocol Amino Ac/Electrol/Dextrose/ Calcium Fat Emulsion Intravenous 250 mls @ 21 mls/hr 11/05/16 19:00 11/06/16 19:00 Intralipid 20% IV 21 mls/hr Q24H RAFA Administration Levofloxacin 150 mls @ 100 mls/hr 11/05/16 16:00 11/06/16 17:23 Levaquin 750 Mg/150 Ml IV 100 mls/hr Q24H RAFA Administration Piperacillin Sod/Tazobactam 100 mls @ 100 mls/hr 11/05/16 18:00 11/07/16 05:49 Sod 4.5 gm/ Sodium Chloride IV 100 mls/hr Q6HR RAFA Administration Lidocaine HCl 5 ml 11/04/16 19:55 11/04/16 21:01 Xylocaine Viscous 2% MM 5 ml Q4H PRN Administration Mouth Sore Pain Lorazepam 1 mg 11/04/16 19:55 11/06/16 19:49 Ativan Inj IVP 1 mg Q2HR PRN Administration Anxiety Morphine Sulfate 15 mg 10/29/16 22:03 11/04/16 16:36 Ms Ir PO 15 mg Q4H PRN Administration breakthrough PAIN Morphine Sulfate 30 mg 10/29/16 22:08 11/06/16 20:01 PO 30 mg BID RAFA Administration Ondansetron HCl 4 mg 10/29/16 20:41 11/04/16 08:14 Zofran Odt TL 4 mg Q4HR PRN Administration Nausea / Vomiting Ondansetron HCl 4 mg 10/29/16 20:41 11/04/16 06:48 Zofran Inj IVP 4 mg Q4HR PRN Administration Nausea / Vomiting Pantoprazole Sodium 40 mg 11/06/16 13:00 11/06/16 20:02 Protonix IVP 40 mg BID RAFA Administration Polyethylene Glycol 17 gm 10/30/16 09:00 11/06/16 13:04 Miralax PO Not Given DAILY RAFA Senna 8.6 - 17.2 mg 10/31/16 09:00 11/06/16 13:05 Senokot PO Not Given DAILY RAFA Sodium Chloride 10 ml 10/29/16 20:35 11/06/16 10:13 Normal Saline Flush 0.9% IVP 20 ml PRN PRN Administration NEEDED PER PROVIDER ORDERS Sodium Chloride 10 ml 10/29/16 22:00 11/07/16 05:49 Normal Saline Flush 0.9% IVP Not Given Q8HR RAAF Sodium Chloride 20 ml 11/03/16 05:39 11/06/16 07:52 Normal Saline Flush 0.9% IVP 20 ml PRN PRN Administration After Blood Draw Sodium Chloride 1 gm 11/03/16 09:00 11/06/16 10:16 Salt Tab PO 1 gm DAILY RAFA Administration Sodium Phosphate 250 mg 11/06/16 08:00 11/06/16 17:03 K-Phos Neutral PO 250 mg TIDWM RAFA Administration - Lab Result Lab results reviewed: Yes Fish Bone Diagrams: 11/07/16 09:05 11/07/16 09:05 Other Lab Results: Abnormal Lab Results 11/06/16 11/06/16 11/06/16 05:06 05:06 05:06 WBC 12.7 x10^3/uL H x10^3/uL (4.8-10.8) RBC 2.94 10^6/uL L 10^6/uL (4.70-6.10) Hgb 8.4 g/dL L g/dL (14.0-18.0) Hct 26.0 % L % (42.0-52.0) MPV 7.2 fL L fL (7.4-11.4) Reticulocyte % (Auto) Neut # 11.6 10^3/uL H 10^3/uL (1.5-6.6) Lymph # 0.6 10^3/uL L 10^3/uL (1.5-3.5) PT 16.7 secs H secs (9.9-12.6) INR 1.5 H (0.8-1.2) Sodium 134 mmol/L L mmol/L (135-145) Chloride 97 mmol/L L mmol/L (101-111) Glucose 128 mg/dL H mg/dL (70-100) Calcium 7.6 mg/dL L mg/dL (8.5-10.3) Phosphorus 1.9 mg/dL L mg/dL (2.5-4.6) Iron TIBC % Saturation Transferrin ALT < 10 IU/L L IU/L (10-60) Total Protein 5.5 g/dL L g/dL (6.7-8.2) Albumin 2.2 g/dL L g/dL (3.2-5.5) Albumin/Globulin Ratio 0.7 L (1.0-2.2) Prealbumin 4 mg/dL L mg/dL (18-45) 11/06/16 11/06/16 05:06 05:06 WBC RBC 2.90 10^6/uL L 10^6/uL (4.70-6.10) Hgb Hct MPV Reticulocyte % (Auto) 2.58 % H % (0.5-2.3) Neut # Lymph # PT INR Sodium Chloride Glucose Calcium Phosphorus Iron < 6 ug/dL L ug/dL (45-182) TIBC 155 ug/dL L ug/dL (250-450) % Saturation 4 % L % (20-50) Transferrin 111 mg/dL L mg/dL (180-329) ALT Total Protein Albumin Albumin/Globulin Ratio Prealbumin - EKG Results EKG Interpreted Independently: No - Additional Planning Condition/Complexity: Improved My Orders: My Active Orders 11/06/16 08:00 Neutra-Phos [K-Phos Neutral] 250 mg PO TIDWM 11/06/16 08:08 Message to Nursing [RC] UD 11/06/16 13:00 Pantoprazole [Protonix] 40 mg IVP BID 11/07/16 CBC - COMP BLD CT W/AUTO DIFF [HEME] Stat CMP [COMPREHENSIVE METABOLIC PANEL] [CHEM] Stat MAGNESIUM [CHEM] Stat PHOSPHORUS [CHEM] Stat 11/08/16 05:00 COMPREHENSIVE METABOLIC PANEL [CHEM] Routine MAGNESIUM [CHEM] Routine PHOSPHORUS [CHEM] Routine PREALBUMIN [CHEM] Routine TRIGLYCERIDES [CHEM] Routine 11/10/16 05:00 COMPREHENSIVE METABOLIC PANEL [CHEM] Routine MAGNESIUM [CHEM] Routine PHOSPHORUS [CHEM] Routine PREALBUMIN [CHEM] Routine TRIGLYCERIDES [CHEM] Routine 11/13/16 05:00 CBC - COMP BLD CT W/AUTO DIFF [HEME] Routine COMPREHENSIVE METABOLIC PANEL [CHEM] Routine MAGNESIUM [CHEM] Routine PHOSPHORUS [CHEM] Routine PREALBUMIN [CHEM] Routine PT WITH INR [COAG] Routine TRIGLYCERIDES [CHEM] Routine Consult/Specialty: OT, PT, Surgery Plan Discussed with:: Patient, Case Management Time Spent: 31-60 minutes (patient will need another 24-48 hours with SBO improving and pneumonia improving. he will need PT evaluation for determining if SNF or rehab) Subjective - Subjective Patient Reports: Feeling Better, Resting Comfortably, Back Pain (pain in back is still there but not as bad. wanting to eat. no chest pain or shortness of breath. abdomen less distended) Objective Vital Signs: Vital Signs - 24 hr 11/06/16 11/06/16 11/07/16 08:21 15:40 01:50 Temperature 36.6 C 36.8 C 37.4 C Heart Rate [ 83 79 93 Brachial] Respiratory 22 16 18 Rate Blood Pressure 112/63 [Left Brachial artery] Blood Pressure 130/68 118/62 [Right Brachial artery] O2 Saturation 92 96 93 Oxygen O2 Source Room air I&O (Last 24 Hrs): Intake and Output Totals x24h 11/05/16 11/06/16 11/07/16 23:59 23:59 23:59 Intake Total 705 5898 948 Output Total 7618 7708 400 Balance -2441 -723 548 General: Alert, Oriented x3, Cooperative HEENT: PERRLA Neck: Supple, No JVD, No thyromegaly Lymphatic: no adenopathy Neuro: Alert, Oriented Times 3 Cardiovascular: Regular rate, Normal S1, Normal S2 Respiratory: Chest non-tender, No respiratory distress, Breath sounds nml Abdomen: Soft, No masses (tenderness with palpation to mid epigastric) Genitourinary: No Mass Extremities: No clubbing, No cyanosis, Other Skin: No rashes, No breakdown Comments/Notes: venous insufficiency stable and clean dry wraps - Results Results: Laboratory Results WBC 12.7 x10^3/uL (4.8-10.8) H 11/06/16 05:06 RBC 2.90 10^6/uL (4.70-6.10) L 11/06/16 05:06 Hgb 8.4 g/dL (14.0-18.0) L 11/06/16 05:06 Hct 26.0 % (42.0-52.0) L 11/06/16 05:06 MCV 88.2 fL (80.0-94.0) 11/06/16 05:06 MCH 28.7 pg (27.0-31.0) 11/06/16 05:06 MCHC 32.5 g/dL (32.0-36.0) 11/06/16 05:06 RDW 14.6 % (12.0-15.0) 11/06/16 05:06 Plt Count 255 10^3/uL (130-450) 11/06/16 05:06 MPV 7.2 fL (7.4-11.4) L 11/06/16 05:06 Reticulocyte % (Auto) 2.58 % (0.5-2.3) H 11/06/16 05:06 Neut # 11.6 10^3/uL (1.5-6.6) H 11/06/16 05:06 Lymph # 0.6 10^3/uL (1.5-3.5) L 11/06/16 05:06 Heard # 0.5 10^3/uL (0.0-1.0) 11/06/16 05:06 Eos # 0.0 10^3/uL (0.0-0.7) 11/06/16 05:06 Baso # 0.0 10^3/uL (0.0-0.1) 11/06/16 05:06 Absolute Nucleated RBC 0.00 x10^3/uL 11/06/16 05:06 Total Counted 100 11/05/16 05:50 Band Neuts % (Manual) 9 % (0-10) 11/05/16 05:50 Neutrophils # (Manual) 24.1 10^3/uL (1.5-6.6) H 11/05/16 05:50 Lymphocytes # (Manual) 1.9 10^3/uL (1.5-3.5) 11/05/16 05:50 Monocytes # (Manual) 0.8 10^3/uL (0.0-1.0) 11/05/16 05:50 Eosinophils # (Manual) 0.3 10^3/uL (0-0.7) 11/05/16 05:50 Nucleated RBCs 0.0 /100WBC 11/06/16 05:06 Differential Comment MANUAL DIFFERENTIAL 11/05/16 05:50 Platelet Estimate NORMAL (130-450,000) (NORMAL) 11/05/16 05:50 RBC Morph Micro Appear NORMAL APPEARANCE (NORMAL) 11/05/16 05:50 ESR 20 mm/Hr (0-20) 10/29/16 19:52 Absolute Retic 0.075 10^6/uL (0.020-0.110) 11/06/16 05:06 PT 16.7 secs (9.9-12.6) H 11/06/16 05:06 INR 1.5 (0.8-1.2) H 11/06/16 05:06 APTT 33.5 secs (24.9-33.3) H 10/29/16 19:52 Sodium 134 mmol/L (135-145) L 11/06/16 05:06 Potassium 3.5 mmol/L (3.5-5.0) 11/06/16 05:06 Chloride 97 mmol/L (101-111) L 11/06/16 05:06 Carbon Dioxide 31 mmol/L (21-32) 11/06/16 05:06 Anion Gap 6.0 (6-13) 11/06/16 05:06 BUN 18 mg/dL (6-20) 11/06/16 05:06 Creatinine 0.7 mg/dL (0.6-1.2) 11/06/16 05:06 Estimated GFR (MDRD) 114 (>89) 11/06/16 05:06 Glucose 128 mg/dL (70-100) H 11/06/16 05:06 Lactic Acid 0.9 mmol/L (0.5-2.2) 11/03/16 09:24 Calcium 7.6 mg/dL (8.5-10.3) L 11/06/16 05:06 Phosphorus 1.9 mg/dL (2.5-4.6) L 11/06/16 05:06 Magnesium 1.8 mg/dL (1.7-2.8) 11/06/16 05:06 Iron < 6 ug/dL (45-182) L 11/06/16 05:06 TIBC 155 ug/dL (250-450) L 11/06/16 05:06 % Saturation 4 % (20-50) L 11/06/16 05:06 Transferrin 111 mg/dL (180-329) L 11/06/16 05:06 Ferritin 226.2 ng/mL (23.9-336.2) 11/06/16 05:06 Total Bilirubin 0.5 mg/dL (0.2-1.0) 11/06/16 05:06 GGT 15 IU/L (8-55) 11/02/16 15:57 AST 17 IU/L (10-42) 11/06/16 05:06 ALT < 10 IU/L (10-60) L 11/06/16 05:06 Alkaline Phosphatase 57 IU/L (42-121) 11/06/16 05:06 Ammonia 10.6 umol/L (7-35) 11/02/16 15:57 Lactate Dehydrogenase 139 IU/L (91-225) 11/06/16 05:06 Total Creatine Kinase 34 IU/L (22-269) 11/02/16 15:57 C-Reactive Protein 12.7 mg/dL (0-1.0) H 10/29/16 19:52 B-Natriuretic Peptide 60 pg/mL (5-100) 11/02/16 15:57 Total Protein 5.5 g/dL (6.7-8.2) L 11/06/16 05:06 Albumin 2.2 g/dL (3.2-5.5) L 11/06/16 05:06 Globulin 3.3 g/dL (2.1-4.2) 11/06/16 05:06 Albumin/Globulin Ratio 0.7 (1.0-2.2) L 11/06/16 05:06 Prealbumin 4 mg/dL (18-45) L 11/06/16 05:06 Triglycerides 79 mg/dL (-149) 11/06/16 05:06 Amylase 143 U/L (28-100) H 11/02/16 05:25 Lipase 30 U/L (22-51) 11/02/16 05:25 Vitamin B12 241 pg/mL (180-914) 11/06/16 05:06 Urine Color DARK YELLOW 11/02/16 17:00 Urine Clarity CLEAR (CLEAR) 11/02/16 17:00 Urine pH 6.0 PH (5.0-7.5) 11/02/16 17:00 Ur Specific [place] 1.025 (1.002-1.030) 11/02/16 17:00 Urine Protein NEGATIVE mg/dL (NEGATIVE) 11/02/16 17:00 Urine Glucose (UA) NEGATIVE mg/dL (NEGATIVE) 11/02/16 17:00 Urine Ketones 40 mg/dL (NEGATIVE) H 11/02/16 17:00 Urine Occult Blood SMALL (NEGATIVE) H 11/02/16 17:00 Urine Nitrite NEGATIVE (NEGATIVE) 11/02/16 17:00 Urine Bilirubin NEGATIVE (NEGATIVE) 11/02/16 17:00 Urine Urobilinogen 1 (NORMAL) E.U./dL (NORMAL) 11/02/16 17:00 Ur Leukocyte Esterase NEGATIVE (NEGATIVE) 11/02/16 17:00 Urine RBC 6-10 /HPF (0-5) H 11/02/16 17:00 Urine WBC 0-3 /HPF (0-3) 11/02/16 17:00 Ur Squamous Epith Cells NONE SEEN (<= Few) 11/02/16 17:00 Urine Bacteria None Seen /HPF (None Seen) 11/02/16 17:00 Gastric Fluid pH 3.0 11/06/16 08:13 Gastric Occult Blood Negative (Negative) 11/06/16 08:13 Last Dose Date 10/30/16 10/31/16 05:55 Last Dose Time 212110/31/16 05:55 Vancomycin Trough 10.9 ug/mL (5.0-15.0) 10/31/16 05:55 Urine Opiates Screen POSITIVE (NEGATIVE) H 10/30/16 04:35 Ur Oxycodone Screen POSITIVE (NEGATIVE) H 10/30/16 04:35 Urine Methadone Screen NEGATIVE (NEGATIVE) 10/30/16 04:35 Ur Propoxyphene Screen NEGATIVE (NEGATIVE) 10/30/16 04:35 Ur Barbiturates Screen NEGATIVE (NEGATIVE) 10/30/16 04:35 Ur Tricyclics Screen NEGATIVE (NEGATIVE) 10/30/16 04:35 Ur Phencyclidine Scrn NEGATIVE (NEGATIVE) 10/30/16 04:35 Ur Amphetamine Screen POSITIVE (NEGATIVE) H 10/30/16 04:35 U Methamphetamines Scrn POSITIVE (NEGATIVE) H 10/30/16 04:35 U Benzodiazepines Scrn NEGATIVE (NEGATIVE) 10/30/16 04:35 Urine Cocaine Screen NEGATIVE (NEGATIVE) 10/30/16 04:35 U Cannabinoids Screen NEGATIVE (NEGATIVE) 10/30/16 04:35 Blood Type A POSITIVE 11/06/16 07:50 Antibody Screen NEGATIVE 11/06/16 07:50 - Procedures Procedures: Procedures CENTRAL VENOUS CATHETER PLACEMENT WITH GUIDANCE (11/07/14) DRESSING OF WOUND NEC (12/04/12) ESOPHAGOGASTRODUODENOSCOPY [EGD] W/CLOSED BIOPSY (03/02/14) OTHER SKIN & SUBQ I D (12/04/12) SOFT TISSUE INCISION NEC (11/07/14)
[2016-11-07 09:18] LABS: BASOPHILS % (AUTO) 0.3 %; EOSINOPHILS # (AUTO) 0.2 10^3/uL (0.0-0.7); EOSINOPHILS % (AUTO) 2.1 %; HCT - HEMATOCRIT 23.9 % (42.0-52.0); HGB - HEMOGLOBIN 7.9 g/dL (14.0-18.0); LYMPHOCYTES # (AUTO) 0.6 10^3/uL (1.5-3.5); LYMPHOCYTES % (AUTO) 7.3 %; MEAN CORPUSCULAR HEMOGLOBIN 29.2 pg (27.0-31.0); MEAN CORPUSCULAR HGB CONC 33.1 g/dL (32.0-36.0); MEAN CORPUSCULAR VOLUME 88.2 fL (80.0-94.0); MONOCYTES # (AUTO) 0.4 10^3/uL (0.0-1.0); MONOCYTES % (AUTO) 4.5 %; NEUTROPHILS # (AUTO) 6.8 10^3/uL (1.5-6.6); NEUTROPHILS % (AUTO) 85.8 %; RED BLOOD COUNT 2.71 10^6/uL (4.70-6.10); RED CELL DISTRIBUTION WIDTH 14.6 % (12.0-15.0)
[2016-11-07 09:37] LABS: ALBUMIN/GLOBULIN RATIO 0.7 (1.0-2.2); BILIRUBIN,TOTAL 0.5 mg/dL (0.2-1.0); CALCIUM 7.6 mg/dL (8.5-10.3); CREATININE 0.6 mg/dL (0.6-1.2); MAGNESIUM 1.8 mg/dL (1.7-2.8); PHOSPHORUS 2.7 mg/dL (2.5-4.6); POTASSIUM 3.3 mmol/L (3.5-5.0); TOTAL PROTEIN 5.3 g/dL (6.7-8.2)
[2016-11-07] MEDS: FUROSEMIDE 40 MG/4 ML VIAL IVP SCH ×2 (09:57→10:07)
[2016-11-07] MEDS: cloNIDine 0.1 MG TABLET PO SCH ×2 (09:57→20:00)
[2016-11-07] MEDS: DOCUSATE SODIUM 250 MG CAPSULE PO SCH (09:57)
[2016-11-07] MEDS: MORPHINE ER 15 MG TABLET PO SCH ×2 (09:57→20:00)
[2016-11-07] MEDS: SENNA 8.6 MG TABLET PO SCH (09:57)
[2016-11-07] MEDS: SODIUM CHLORIDE 1 GM TABLET PO SCH (09:57)
[2016-11-07] MEDS: PANTOPRAZOLE 40 MG VIAL IVP SCH ×2 (09:57→20:00)
[2016-11-07] MEDS: ENOXAPARIN 40 MG/0.4 ML SYRINGE SUBQ SCH ×2 (09:57→10:07)
[2016-11-07] MEDS: POLYETHYLENE GLYCOL 3350 17 GM PACKET PO SCH (09:57)
[2016-11-07] MEDS ORDERED: IRON SUCROSE 300 MG in SODIUM CHLORIDE 0.9% 250 ML IV SCH (10:00)
[2016-11-07] MEDS: NEUTRA-PHOS 250 MG TABLET PO SCH ×3 (10:01→16:01)
[2016-11-07] MEDS: SODIUM CHLORIDE FLUSH 0.9% 10 ML SYRINGE IVP PRN ×3 (10:37→18:44)
[2016-11-07] MEDS: LORazepam 2 MG/ML SYRINGE IVP PRN ×2 (16:07→21:19)
[2016-11-07] MEDS: FAT EMULSION 20% 250 ML IV SCH (19:46)
[2016-11-07] MEDS: TPN (CLINIMIX E 5/15) 2,000 ML with MULTIVITAMIN 10 ML, TRACE ELEMENTS V CONC 1 ML, POT... IV SCH ×5 (19:46)
[2016-11-08] MEDS: PIPERACILLIN/TAZOBACTAM 4.5 GM in SODIUM CHLORIDE 0.9% MINIBAG 100 ML IV SCH ×4 (00:32→18:44)
[2016-11-08] MEDS: HYDROmorphone 1 MG/ML SYRINGE IVP PRN ×10 (00:32→22:45)
[2016-11-08] MEDS: SODIUM CHLORIDE FLUSH 0.9% 10 ML SYRINGE IVP PRN ×3 (05:02→22:45)
[2016-11-08] MEDS: SODIUM CHLORIDE FLUSH 0.9% 10 ML SYRINGE IVP SCH ×4 (05:02→20:46)
[2016-11-08 05:31] LABS: ALBUMIN/GLOBULIN RATIO 0.6 (1.0-2.2); BILIRUBIN,TOTAL 0.2 mg/dL (0.2-1.0); CALCIUM 7.6 mg/dL (8.5-10.3); CREATININE 0.6 mg/dL (0.6-1.2); MAGNESIUM 1.8 mg/dL (1.7-2.8); PHOSPHORUS 2.6 mg/dL (2.5-4.6); POTASSIUM 3.3 mmol/L (3.5-5.0); TOTAL PROTEIN 5.4 g/dL (6.7-8.2)
[2016-11-08] MEDS ORDERED: FUROSEMIDE 20 MG/2 ML VIAL IVP PRN (07:04)
--- NOTE | 2016-11-08 07:24 | PROVIDER PROGRESS NOTE ---
Assessment/Plan - Problem List (1) Pneumonia of left lower lobe due to infectious organism Assessment/Plan: acute. improving. continue with antibiotic IV and with RT treatments with supplemental oxygen 2 liters as needed. blood cultures pending (2) Small bowel obstruction Assessment/Plan: acute and improving. output still greater than 500ml daily from NG tube. will attempt to start clears and advance (3) Low serum phosphorus for age Assessment/Plan: acute. continue to monitor levels with daily lab draws. (4) Acute hyponatremia Assessment/Plan: acute but improving. continue with TPN and monitor electrolytes with daily lab draw. today is at 134 (5) History of COPD Assessment/Plan: chronic. continue with duoneb treatments and RT support with oxygen as needed (6) Chronic pain syndrome Assessment/Plan: acute on chronic. continue on pain medications as prescribed (8) Cirrhosis of liver with ascites Qualifiers: Hepatic cirrhosis type: unspecified hepatic cirrhosis Qualified Code(s): K74.60 - Unspecified cirrhosis of liver (9) Lower extremity ulceration Qualifiers: Laterality: unspecified laterality Non-pressure ulcer stage: unspecified non-pressure ulcer stage Qualified Code(s): L97.909 - Non-pressure chronic ulcer of unspecified part of unspecified lower leg with unspecified severity Assessment/Plan: acute on chronic. continue with wound care and pain medication. encourage ambulation (11) Anemia associated with nutritional deficiency Assessment/Plan: acute on chronic. patient was thought to have blood loss but guaic was negative for emesis. still will need evaluation with EGD and lower scope outpatient for evaluation for anemia. He denies black stools. No hematachezia. will cross match and give 2 units of PRBC. continue to monitor CBC with daily lab draws. - Current Meds Current Meds: Current Medications Generic Name Dose Route Start Last Admin Trade Name Freq PRN Reason Stop Dose Admin Clonidine HCl 0.1 mg 10/30/16 07:23 11/04/16 18:05 Catapres PO 0.1 mg PRN PRN Administration Blood Pressure Clonidine HCl 0.1 mg 10/31/16 11:00 11/07/16 20:00 Catapres PO 0.1 mg BID RAFA Administration Docusate Sodium 250 - 500 mg 10/31/16 09:00 11/07/16 09:57 Colace 250mg Capsule PO 250 mg DAILY RAFA Administration Enoxaparin Sodium 40 mg 10/30/16 09:00 11/07/16 10:07 Lovenox SUBQ Not Given DAILY [facility] Furosemide 40 mg 11/03/16 14:30 11/07/16 10:07 Lasix Inj 40 Mg Vial IVP Not Given DAILY [facility] Heparin Sodium (Beef Lung) 30 - 50 unit 11/03/16 05:39 11/05/16 02:02 IVP 12/03/16 05:39 150 unit ONCE PRN Administration Central Line Protocol (<24 hr) Hydromorphone HCl 1 mg 11/02/16 13:55 11/08/16 06:50 Dilaudid Inj IVP 1 mg Q2HR PRN Administration PAIN Multivitamins 10 ml/ Chromium/ 2,033.5 mls @ 55 mls/hr 11/05/16 19:00 11/07/16 19:46 Copper/Manganese/Seleni/Zn 1 IV 55 mls/hr ml/ Potassium Chloride 40 meq/ Q24H RAFA Administration Magnesium Sulfate 1.25 gm/ Protocol Amino Ac/Electrol/Dextrose/ Calcium Fat Emulsion Intravenous 250 mls @ 21 mls/hr 11/05/16 19:00 11/07/16 19:46 Intralipid 20% IV 21 mls/hr Q24H RAFA Administration Levofloxacin 150 mls @ 100 mls/hr 11/05/16 16:00 11/07/16 15:57 Levaquin 750 Mg/150 Ml IV 100 mls/hr Q24H RAFA Administration Piperacillin Sod/Tazobactam 100 mls @ 100 mls/hr 11/05/16 18:00 11/08/16 05:01 Sod 4.5 gm/ Sodium Chloride IV 100 mls/hr Q6HR RAFA Administration Lidocaine HCl 5 ml 11/04/16 19:55 11/04/16 21:01 Xylocaine Viscous 2% MM 5 ml Q4H PRN Administration Mouth Sore Pain Lorazepam 1 mg 11/04/16 19:55 11/07/16 21:19 Ativan Inj IVP 1 mg Q2HR PRN Administration Anxiety Morphine Sulfate 15 mg 10/29/16 22:03 11/04/16 16:36 Ms Ir PO 15 mg Q4H PRN Administration breakthrough PAIN Morphine Sulfate 30 mg 10/29/16 22:08 11/07/16 20:00 PO 30 mg BID RAFA Administration Ondansetron HCl 4 mg 10/29/16 20:41 11/04/16 08:14 Zofran Odt TL 4 mg Q4HR PRN Administration Nausea / Vomiting Ondansetron HCl 4 mg 10/29/16 20:41 11/04/16 06:48 Zofran Inj IVP 4 mg Q4HR PRN Administration Nausea / Vomiting Pantoprazole Sodium 40 mg 11/06/16 13:00 11/07/16 20:00 Protonix IVP 40 mg BID RAFA Administration Polyethylene Glycol 17 gm 10/30/16 09:00 11/07/16 09:57 Miralax PO Not Given DAILY RAFA Senna 8.6 - 17.2 mg 10/31/16 09:00 11/07/16 09:57 Senokot PO 8.6 mg DAILY RAFA Administration Sodium Chloride 10 ml 10/29/16 20:35 11/07/16 18:44 Normal Saline Flush 0.9% IVP 10 ml PRN PRN Administration NEEDED PER PROVIDER ORDERS Sodium Chloride 10 ml 10/29/16 22:00 11/08/16 05:02 Normal Saline Flush 0.9% IVP 10 ml Q8HR RAFA Administration Sodium Chloride 20 ml 11/03/16 05:39 11/08/16 05:02 Normal Saline Flush 0.9% IVP 20 ml PRN PRN Administration After Blood Draw Sodium Chloride 1 gm 11/03/16 09:00 11/07/16 09:57 Salt Tab PO 1 gm DAILY RAFA Administration Sodium Phosphate 250 mg 11/06/16 08:00 11/07/16 16:01 K-Phos Neutral PO 250 mg TIDWM RAFA Administration - Lab Result Lab results reviewed: Yes Fish Bone Diagrams: 11/07/16 09:05 11/08/16 05:11 Other Lab Results: Abnormal Lab Results 11/06/16 11/06/16 11/07/16 05:06 05:06 09:05 RBC 2.90 10^6/uL L 10^6/uL 2.71 10^6/uL L 10^6/uL (4.70-6.10) (4.70-6.10) Hgb 7.9 g/dL L g/dL (14.0-18.0) Hct 23.9 % L % (42.0-52.0) MPV 7.0 fL L fL (7.4-11.4) Reticulocyte % (Auto) 2.58 % H % (0.5-2.3) Neut # 6.8 10^3/uL H 10^3/uL (1.5-6.6) Lymph # 0.6 10^3/uL L 10^3/uL (1.5-3.5) Sodium Potassium Chloride Glucose Calcium Iron < 6 ug/dL L ug/dL (45-182) TIBC 155 ug/dL L ug/dL (250-450) % Saturation 4 % L % (20-50) Transferrin 111 mg/dL L mg/dL (180-329) Total Protein Albumin Albumin/Globulin Ratio Prealbumin 11/07/16 11/08/16 09:05 05:11 RBC Hgb Hct MPV Reticulocyte % (Auto) Neut # Lymph # Sodium 133 mmol/L L mmol/L 132 mmol/L L mmol/L (135-145) (135-145) Potassium 3.3 mmol/L L mmol/L 3.3 mmol/L L mmol/L (3.5-5.0) (3.5-5.0) Chloride 95 mmol/L L mmol/L 98 mmol/L L mmol/L (101-111) (101-111) Glucose 132 mg/dL H mg/dL 145 mg/dL H mg/dL (70-100) (70-100) Calcium 7.6 mg/dL L mg/dL 7.6 mg/dL L mg/dL (8.5-10.3) (8.5-10.3) Iron TIBC % Saturation Transferrin Total Protein 5.3 g/dL L g/dL 5.4 g/dL L g/dL (6.7-8.2) (6.7-8.2) Albumin 2.1 g/dL L g/dL 2.0 g/dL L g/dL (3.2-5.5) (3.2-5.5) Albumin/Globulin Ratio 0.7 L 0.6 L (1.0-2.2) (1.0-2.2) Prealbumin 5 mg/dL L mg/dL (18-45) - EKG Results EKG Interpreted Independently: No - Additional Planning Condition/Complexity: Stable My Orders: My Active Orders 11/08/16 07:04 Transfuse RBCs Leukoreduced [RC] ONCE FUROSEMIDE INJ 20mg VIAL [LASIX INJ 20mg VIAL] 20 mg IVP ONCE PRN 11/08/16 07:08 RBC, LEUKOREDUCED Stat TYPE AND SCREEN Stat 11/10/16 05:00 COMPREHENSIVE METABOLIC PANEL [CHEM] Routine MAGNESIUM [CHEM] Routine PHOSPHORUS [CHEM] Routine PREALBUMIN [CHEM] Routine TRIGLYCERIDES [CHEM] Routine 11/13/16 05:00 CBC - COMP BLD CT W/AUTO DIFF [HEME] Routine COMPREHENSIVE METABOLIC PANEL [CHEM] Routine MAGNESIUM [CHEM] Routine PHOSPHORUS [CHEM] Routine PREALBUMIN [CHEM] Routine PT WITH INR [COAG] Routine TRIGLYCERIDES [CHEM] Routine Consult/Specialty: OT, PT, Surgery Plan Discussed with:: Patient, Case Management Time Spent: 31-60 minutes (patient still having abdominal pain and now with lower hemoglobin level. will transfuse 2 units and plan for discharge in 24-48 hours. will need EGD and colonoscopy) Objective Vital Signs: Vital Signs - 24 hr 11/07/16 11/07/16 11/07/16 08:37 14:25 16:20 Temperature 36.8 C 36.7 C Heart Rate [ 84 75 Brachial] Heart Rate [ 90 Sitting] Respiratory 20 16 Rate Respiratory 18 Rate [Without Activity] Blood Pressure 110/66 103/62 [Right Brachial artery] Blood Pressure 110/67 [Sitting] O2 Saturation 94 92 O2 Saturation [ 94 Without Activity] 11/08/16 00:05 Temperature 36.7 C Heart Rate [ 78 Brachial] Heart Rate [ Sitting] Respiratory 16 Rate Respiratory Rate [Without Activity] Blood Pressure 100/51 L [Right Brachial artery] Blood Pressure [Sitting] O2 Saturation 92 O2 Saturation [ Without Activity] Oxygen O2 Source [Without Activity] Room air O2 Source Room air I&O (Last 24 Hrs): Intake and Output Totals x24h 11/06/16 11/07/16 11/08/16 23:59 23:59 23:59 Intake Total 4047 948 843 Output Total 4798 1540 200 Balance -723 -592 643 - Results Results: Laboratory Results WBC 8.0 x10^3/uL (4.8-10.8) 11/07/16 09:05 RBC 2.71 10^6/uL (4.70-6.10) L 11/07/16 09:05 Hgb 7.9 g/dL (14.0-18.0) L 11/07/16 09:05 Hct 23.9 % (42.0-52.0) L 11/07/16 09:05 MCV 88.2 fL (80.0-94.0) 11/07/16 09:05 MCH 29.2 pg (27.0-31.0) 11/07/16 09:05 MCHC 33.1 g/dL (32.0-36.0) 11/07/16 09:05 RDW 14.6 % (12.0-15.0) 11/07/16 09:05 Plt Count 192 10^3/uL (130-450) 11/07/16 09:05 MPV 7.0 fL (7.4-11.4) L 11/07/16 09:05 Reticulocyte % (Auto) 2.58 % (0.5-2.3) H 11/06/16 05:06 Neut # 6.8 10^3/uL (1.5-6.6) H 11/07/16 09:05 Lymph # 0.6 10^3/uL (1.5-3.5) L 11/07/16 09:05 [place] # 0.4 10^3/uL (0.0-1.0) 11/07/16 09:05 Eos # 0.2 10^3/uL (0.0-0.7) 11/07/16 09:05 Baso # 0.0 10^3/uL (0.0-0.1) 11/07/16 09:05 Absolute Nucleated RBC 0.00 x10^3/uL 11/07/16 09:05 Total Counted 100 11/05/16 05:50 Band Neuts % (Manual) 9 % (0-10) 11/05/16 05:50 Neutrophils # (Manual) 24.1 10^3/uL (1.5-6.6) H 11/05/16 05:50 Lymphocytes # (Manual) 1.9 10^3/uL (1.5-3.5) 11/05/16 05:50 Monocytes # (Manual) 0.8 10^3/uL (0.0-1.0) 11/05/16 05:50 Eosinophils # (Manual) 0.3 10^3/uL (0-0.7) 11/05/16 05:50 Nucleated RBCs 0.0 /100WBC 11/07/16 09:05 Differential Comment MANUAL DIFFERENTIAL 11/05/16 05:50 Platelet Estimate NORMAL (130-450,000) (NORMAL) 11/05/16 05:50 RBC Morph Micro Appear NORMAL APPEARANCE (NORMAL) 11/05/16 05:50 ESR 20 mm/Hr (0-20) 10/29/16 19:52 Absolute Retic 0.075 10^6/uL (0.020-0.110) 11/06/16 05:06 PT 16.7 secs (9.9-12.6) H 11/06/16 05:06 INR 1.5 (0.8-1.2) H 11/06/16 05:06 APTT 33.5 secs (24.9-33.3) H 10/29/16 19:52 Sodium 132 mmol/L (135-145) L 11/08/16 05:11 Potassium 3.3 mmol/L (3.5-5.0) L 11/08/16 05:11 Chloride 98 mmol/L (101-111) L 11/08/16 05:11 Carbon Dioxide 26 mmol/L (21-32) 11/08/16 05:11 Anion Gap 8.0 (6-13) 11/08/16 05:11 BUN 16 mg/dL (6-20) 11/08/16 05:11 Creatinine 0.6 mg/dL (0.6-1.2) 11/08/16 05:11 Estimated GFR (MDRD) 136 (>89) 11/08/16 05:11 Glucose 145 mg/dL (70-100) H 11/08/16 05:11 Lactic Acid 0.9 mmol/L (0.5-2.2) 11/03/16 09:24 Calcium 7.6 mg/dL (8.5-10.3) L 11/08/16 05:11 Phosphorus 2.6 mg/dL (2.5-4.6) 11/08/16 05:11 Magnesium 1.8 mg/dL (1.7-2.8) 11/08/16 05:11 Iron < 6 ug/dL (45-182) L 11/06/16 05:06 TIBC 155 ug/dL (250-450) L 11/06/16 05:06 % Saturation 4 % (20-50) L 11/06/16 05:06 Transferrin 111 mg/dL (180-329) L 11/06/16 05:06 Ferritin 226.2 ng/mL (23.9-336.2) 11/06/16 05:06 Total Bilirubin 0.2 mg/dL (0.2-1.0) 11/08/16 05:11 GGT 15 IU/L (8-55) 11/02/16 15:57 AST 32 IU/L (10-42) 11/08/16 05:11 ALT 23 IU/L (10-60) 11/08/16 05:11 Alkaline Phosphatase 82 IU/L (42-121) 11/08/16 05:11 Ammonia 10.6 umol/L (7-35) 11/02/16 15:57 Lactate Dehydrogenase 139 IU/L (91-225) 11/06/16 05:06 Total Creatine Kinase 34 IU/L (22-269) 11/02/16 15:57 C-Reactive Protein 12.7 mg/dL (0-1.0) H 10/29/16 19:52 B-Natriuretic Peptide 60 pg/mL (5-100) 11/02/16 15:57 Total Protein 5.4 g/dL (6.7-8.2) L 11/08/16 05:11 Albumin 2.0 g/dL (3.2-5.5) L 11/08/16 05:11 Globulin 3.4 g/dL (2.1-4.2) 11/08/16 05:11 Albumin/Globulin Ratio 0.6 (1.0-2.2) L 11/08/16 05:11 Prealbumin 5 mg/dL (18-45) L 11/08/16 05:11 Triglycerides 117 mg/dL (-149) 11/08/16 05:11 Amylase 143 U/L (28-100) H 11/02/16 05:25 Lipase 30 U/L (22-51) 11/02/16 05:25 Vitamin B12 241 pg/mL (180-914) 11/06/16 05:06 Urine Color DARK YELLOW 11/02/16 17:00 Urine Clarity CLEAR (CLEAR) 11/02/16 17:00 Urine pH 6.0 PH (5.0-7.5) 11/02/16 17:00 Ur Specific [place] 1.025 (1.002-1.030) 11/02/16 17:00 Urine Protein NEGATIVE mg/dL (NEGATIVE) 11/02/16 17:00 Urine Glucose (UA) NEGATIVE mg/dL (NEGATIVE) 11/02/16 17:00 Urine Ketones 40 mg/dL (NEGATIVE) H 11/02/16 17:00 Urine Occult Blood SMALL (NEGATIVE) H 11/02/16 17:00 Urine Nitrite NEGATIVE (NEGATIVE) 11/02/16 17:00 Urine Bilirubin NEGATIVE (NEGATIVE) 11/02/16 17:00 Urine Urobilinogen 1 (NORMAL) E.U./dL (NORMAL) 11/02/16 17:00 Ur Leukocyte Esterase NEGATIVE (NEGATIVE) 11/02/16 17:00 Urine RBC 6-10 /HPF (0-5) H 11/02/16 17:00 Urine WBC 0-3 /HPF (0-3) 11/02/16 17:00 Ur Squamous Epith Cells NONE SEEN (<= Few) 11/02/16 17:00 Urine Bacteria None Seen /HPF (None Seen) 11/02/16 17:00 Gastric Fluid pH 3.0 11/06/16 08:13 Gastric Occult Blood Negative (Negative) 11/06/16 08:13 Last Dose Date 10/30/16 10/31/16 05:55 Last Dose Time 212110/31/16 05:55 Vancomycin Trough 10.9 ug/mL (5.0-15.0) 10/31/16 05:55 Urine Opiates Screen POSITIVE (NEGATIVE) H 10/30/16 04:35 Ur Oxycodone Screen POSITIVE (NEGATIVE) H 10/30/16 04:35 Urine Methadone Screen NEGATIVE (NEGATIVE) 10/30/16 04:35 Ur Propoxyphene Screen NEGATIVE (NEGATIVE) 10/30/16 04:35 Ur Barbiturates Screen NEGATIVE (NEGATIVE) 10/30/16 04:35 Ur Tricyclics Screen NEGATIVE (NEGATIVE) 10/30/16 04:35 Ur Phencyclidine Scrn NEGATIVE (NEGATIVE) 10/30/16 04:35 Ur Amphetamine Screen POSITIVE (NEGATIVE) H 10/30/16 04:35 U Methamphetamines Scrn POSITIVE (NEGATIVE) H 10/30/16 04:35 U Benzodiazepines Scrn NEGATIVE (NEGATIVE) 10/30/16 04:35 Urine Cocaine Screen NEGATIVE (NEGATIVE) 10/30/16 04:35 U Cannabinoids Screen NEGATIVE (NEGATIVE) 10/30/16 04:35 Blood Type A POSITIVE 11/06/16 07:50 Antibody Screen NEGATIVE 11/06/16 07:50 - Procedures Procedures: Procedures CENTRAL VENOUS CATHETER PLACEMENT WITH GUIDANCE (11/07/14) DRESSING OF WOUND NEC (12/04/12) ESOPHAGOGASTRODUODENOSCOPY [EGD] W/CLOSED BIOPSY (03/02/14) OTHER SKIN & SUBQ I D (12/04/12) SOFT TISSUE INCISION NEC (11/07/14)
[2016-11-08] MEDS: MORPHINE ER 15 MG TABLET PO SCH ×2 (08:22→20:45)
[2016-11-08] MEDS: cloNIDine 0.1 MG TABLET PO SCH ×2 (08:22→20:45)
[2016-11-08] MEDS: ENOXAPARIN 40 MG/0.4 ML SYRINGE SUBQ SCH (08:22)
[2016-11-08] MEDS: MORPHINE IR 15 MG TABLET PO PRN ×3 (08:22→22:45)
[2016-11-08] MEDS: POLYETHYLENE GLYCOL 3350 17 GM PACKET PO SCH (08:23)
[2016-11-08] MEDS: NEUTRA-PHOS 250 MG TABLET PO SCH ×3 (08:23→16:25)
[2016-11-08] MEDS: SENNA 8.6 MG TABLET PO SCH (08:23)
[2016-11-08] MEDS: PANTOPRAZOLE 40 MG VIAL IVP SCH (08:23)
[2016-11-08] MEDS: FUROSEMIDE 40 MG/4 ML VIAL IVP SCH (08:23)
[2016-11-08] MEDS: DOCUSATE SODIUM 250 MG CAPSULE PO SCH (08:23)
[2016-11-08] MEDS: SODIUM CHLORIDE 1 GM TABLET PO SCH (09:39)
[2016-11-08] MEDS: cloNIDine 0.1 MG TABLET PO PRN (12:37)
[2016-11-08] MEDS ORDERED: SODIUM CHLORIDE FLUSH 0.9% 10 ML SYRINGE IVP ONE (16:23)
[2016-11-08] MEDS: LORazepam 2 MG/ML SYRINGE IVP PRN (16:35)
[2016-11-08] MEDS: POTASSIUM CHLORIDE 20 MEQ TABLET PO SCH (20:45)
[2016-11-08] MEDS: MAGNESIUM OXIDE 400 MG TABLET PO SCH (20:45)
[2016-11-08] MEDS: MULTIVITAMIN W/MINERALS TABLET PO SCH (20:45)
[2016-11-09] MEDS: PIPERACILLIN/TAZOBACTAM 4.5 GM in SODIUM CHLORIDE 0.9% MINIBAG 100 ML IV SCH ×4 (00:15→18:11)
[2016-11-09] MEDS: LORazepam 0.5 MG TABLET PO PRN ×2 (00:15→15:37)
[2016-11-09] MEDS: SODIUM CHLORIDE FLUSH 0.9% 10 ML SYRINGE IVP PRN ×9 (00:16→22:13)
[2016-11-09] MEDS: HYDROmorphone 1 MG/ML SYRINGE IVP PRN ×8 (01:22→22:13)
[2016-11-09 06:12] LABS: BASOPHILS % (AUTO) 0.5 %; EOSINOPHILS # (AUTO) 0.3 10^3/uL (0.0-0.7); EOSINOPHILS % (AUTO) 3.9 %; HCT - HEMATOCRIT 28.6 % (42.0-52.0); HGB - HEMOGLOBIN 9.6 g/dL (14.0-18.0); LYMPHOCYTES # (AUTO) 0.9 10^3/uL (1.5-3.5); LYMPHOCYTES % (AUTO) 12.1 %; MEAN CORPUSCULAR HEMOGLOBIN 29.7 pg (27.0-31.0); MEAN CORPUSCULAR HGB CONC 33.5 g/dL (32.0-36.0); MEAN CORPUSCULAR VOLUME 88.7 fL (80.0-94.0); MEAN PLATELET VOLUME 7.2 fL (7.4-11.4); MONOCYTES # (AUTO) 0.5 10^3/uL (0.0-1.0); NEUTROPHILS # (AUTO) 5.8 10^3/uL (1.5-6.6); NEUTROPHILS % (AUTO) 77.5 %; NUCLEATED RED BLOOD CELLS AUTO 0.1 /100WBC; RED BLOOD COUNT 3.22 10^6/uL (4.70-6.10); RED CELL DISTRIBUTION WIDTH 14.5 % (12.0-15.0); UNCORRECTED WHITE BLOOD COUNT 7.5 x10^3/uL; WHITE BLOOD COUNT 7.5 x10^3/uL (4.8-10.8)
[2016-11-09] MEDS ORDERED: POTASSIUM CHLORIDE INJ 40 MEQ in SODIUM CHLORIDE 0.9% 480 ML IV ONE (07:27)
[2016-11-09] MEDS ORDERED: CALCIUM GLUCONATE 1,000 MG in SODIUM CHLORIDE 0.9% 50 ML IV ONE (07:28)
[2016-11-09] MEDS: ENOXAPARIN 40 MG/0.4 ML SYRINGE SUBQ SCH (08:24)
[2016-11-09] MEDS ORDERED: SODIUM CHLORIDE 0.9% 250 ML IV ONE (08:24)
[2016-11-09] MEDS: NEUTRA-PHOS 250 MG TABLET PO SCH ×3 (08:25→16:51)
[2016-11-09] MEDS: MAGNESIUM OXIDE 400 MG TABLET PO SCH (08:25)
[2016-11-09] MEDS: SENNA 8.6 MG TABLET PO SCH (08:25)
[2016-11-09] MEDS: DOCUSATE SODIUM 250 MG CAPSULE PO SCH (08:25)
[2016-11-09] MEDS: MULTIVITAMIN W/MINERALS TABLET PO SCH (08:25)
[2016-11-09] MEDS: SODIUM CHLORIDE 1 GM TABLET PO SCH (08:25)
[2016-11-09] MEDS: MORPHINE ER 15 MG TABLET PO SCH ×2 (08:25→21:39)
[2016-11-09] MEDS: POTASSIUM CHLORIDE 20 MEQ TABLET PO SCH (08:25)
[2016-11-09] MEDS: POLYETHYLENE GLYCOL 3350 17 GM PACKET PO SCH (08:53)
--- NOTE | 2016-11-09 09:33 | XRAY Report ---
TWO-VIEW ABDOMEN: 11/09/2016 CLINICAL INDICATION: Bowel obstruction. FINDINGS: Supine and upright views of the abdomen are compared to CT of 11/05/2016. Gaseous distent ion of large and small bowel loops is increasing. No free intraperitoneal gas is seen. Basilar infi ltrates are again noted. IMPRESSION: INCREASING GASEOUS DISTENTION OF LARGE AND SMALL BOWEL LOOPS. JOB #: [id number] EXT JOB #:[id number]
[2016-11-09] MEDS ORDERED: SODIUM CHLORIDE 0.9% 500 ML IV ONE ×2 (10:34→12:51)
[2016-11-09] MEDS: NICOTINE 14 MG PATCH TOP SCH (12:18)
--- NOTE | 2016-11-09 14:02 | CT Report ---
CT ABDOMEN AND PELVIS WITHOUT CONTRAST: 11/09/2016 CLINICAL INDICATION: Abdominal pain. COMPARISON: 11/05/2016 TECHNIQUE: Axial CT images of the abdomen and pelvis were obtained without oral or IV contrast. FINDINGS: Limited evaluation of the lung bases demonstrates increased in basilar infiltrates and sma ll pleural effusions. No pneumothorax is present. ABDOMEN: The previously administered oral contrast is now present in the colon, excluding a complete small bowel obstruction. Gaseous dilatation of large and small bowel loops has increased. No free gas is seen. Ascites has decreased significantly in the interval. Allowing for the lack of intraven ous contrast enhancement, the liver, spleen, pancreas, kidneys and adrenal glands appear unremarkable . The gallbladder is not dilated. PELVIS: Small volume of ascites is noted in the pelvis. Dilatation of large and small bowel loops i s present, with oral contrast present to the rectum. No free fluid or pelvic sidewall adenopathy is appreciated. Osseous structures demonstrate degenerative changes. IMPRESSION: 1. PERSISTENT DILATATION OF LARGE AND SMALL BOWEL LOOPS, WITH ORAL CONTRAST NOW THROUGHOUT THE COLON . NO EVIDENCE OF PERFORATION. 2. INCREASING BASILAR INFILTRATES AND SMALL EFFUSIONS. In accordance with CT protocol optimization, one or more of the following dose reduction techniques w ere utilized for this exam: automated exposure control, adjustment of mA and/or KV based on patient size, or use of iterative reconstructive technique. JOB #: [id number] EXT JOB #:[id number]
[2016-11-09] MEDS: MORPHINE IR 15 MG TABLET PO PRN (14:22)
[2016-11-09] MEDS: SODIUM CHLORIDE FLUSH 0.9% 10 ML SYRINGE IVP SCH ×2 (14:49→15:19)
--- NOTE | 2016-11-09 15:02 | PROVIDER PROGRESS NOTE ---
Subjective - Subjective Pt reports feeling: No change Subjective: patient still complain of generalized pain, express D/C to home, request advanced diet, report he had two large bowel movement with black stool on yesterday. No chest pain, headache, nausea, vomiting, diarrhea, abdominal pain, lightheaded. Objective - Vital Signs/Intake & Output Vital Signs: Vital Signs x48h Temp Pulse Resp BP BP Pulse Ox 11/09/16 14:15 36.4 C L 71 20 122/84 H 95 11/09/16 12:42 77 89/57 L 11/09/16 11:25 98/60 11/09/16 07:49 36.9 C 67 17 86/51 L 95 Intake & Output: Intake & Output 11/06/16 11/07/16 11/08/16 11/09/16 23:59 23:59 23:59 23:59 Intake Total 4047 948 1843 2601 Output Total 4770 1540 4045 200 Balance -723 -592 -2202 2401 - Objective General Appearance: positive: No acute distress, Alert. negative: Anxious, Lethargic Eyes Bilateral: positive: Normal inspection, PERRL. negative: No lid inflammation ENT: positive: ENT inspection nml, Pharynx nml, No signs of dehydration. negative: Purulent nasal drainage, Pharyngeal erythema, Oral lesions Neck: positive: Nml inspection, Thyroid nml, Trachea midline. negative: Stiff neck, Swelling/bruising Respiratory: positive: Chest non-tender, No respiratory distress, Breath sounds nml. negative: Wheezes, Rales, Rhonchi Cardiovascular: positive: Regular rate & rhythm, No murmur, No gallop. negative : Systolic murmur, Diastolic murmur Peripheral Pulses: 2+ Radial (R), 2+ Radial (L), 2+ Dorsalis pedis (R), 2+ Dorsalis pedis (L) Abdomen: positive: Non-tender, Nml bowel sounds, Other (mild to moderate abdominal distention). negative: Tenderness, Guarding, Rebound Back: positive: Nml inspection. negative: CVA tenderness (R), CVA tenderness (L ) Skin: positive: Color nml, No rash, Warm. negative: Diaphoresis Extremities: positive: Non-tender, Full ROM, Nml appearance, No pedal edema. negative: Calf tenderness, Joint swelling Neurologic/Psychiatric: positive: Oriented x3, CN's nml (2-12), Motor nml, Sensation nml, Mood/affect nml. negative: Disoriented to person, Disoriented to place, Disoriented to time, Facial droop, Slurred/abnml speech - Lab Results Fish Bones: 11/09/16 05:55 11/08/16 05:11 Other Labs: Lab Results x24hrs 11/09/16 11/06/16 Range/Units 05:55 07:50 WBC 7.5 (4.8-10.8) x10^3/uL RBC 3.22 L (4.70-6.10) 10^6/uL Hgb 9.6 L (14.0-18.0) g/dL Hct 28.6 L (42.0-52.0) % MCV 88.7 (80.0-94.0) fL MCH 29.7 (27.0-31.0) pg MCHC 33.5 (32.0-36.0) g/dL RDW 14.5 (12.0-15.0) % Plt Count 245 (130-450) 10^3/uL MPV 7.2 L (7.4-11.4) fL Neut # 5.8 (1.5-6.6) 10^3/uL Lymph # 0.9 L (1.5-3.5) 10^3/uL [place] # 0.5 (0.0-1.0) 10^3/uL Eos # 0.3 (0.0-0.7) 10^3/uL Baso # 0.0 (0.0-0.1) 10^3/uL Absolute Nucleated RBC 0.01 x10^3/uL Nucleated RBCs 0.1 /100WBC Crossmatch IS Only See Detail Assessment/Plan - Problem List (1) Hypotension Impression: pt's BP at 86/51, hold BP medication, lasix and Clonidine order two 500 ml bolus NS, now pt's BP is back to normal arrange (2) Cellulitis Impression: infection is better controlled, continue to treat with antibiotics, (3) Drug abuse Impression: advise pt void drug abuse (4) Posttraumatic stress disorder Impression: stable, keep the treatment (5) History of COPD Impression: no SOB, stable SO2 with room air, keep the treatment (6) Chronic pain syndrome Impression: pt request more pain meds, explain patient how much he had now, the benefit and risks of pain medication (7) Small bowel obstruction Impression: pt has one bowel movement today, CT of abdomen reveals persistent dilation of large and small bowel loops, with oral contrast now throughout the colon, no evidence of perforation pt request advanced diet, pt has mech soft diet now, closely monitor if pt can tolerate courage pt with PT to walk I&O monitor (8) Anemia Impression: HGB9.6 now after transfusion RBC pt report he had black stool on yesterday and today. order occult stool test, follow up test. (9) Pneumonia Impression: continue antibiotics, pt's WBC is down to normal arrange. SO2 97 at room air.
[2016-11-09] MEDS ORDERED: LORazepam 0.5 MG TABLET PO SCH (22:59)
[2016-11-09] MEDS ORDERED: GABAPENTIN 100 MG CAPSULE PO SCH (23:01)
[2016-11-10] MEDS: PIPERACILLIN/TAZOBACTAM 4.5 GM in SODIUM CHLORIDE 0.9% MINIBAG 100 ML IV SCH ×5 (00:08→18:49)
[2016-11-10] MEDS: SODIUM CHLORIDE FLUSH 0.9% 10 ML SYRINGE IVP PRN ×5 (00:09→17:26)
[2016-11-10] MEDS: HYDROmorphone 1 MG/ML SYRINGE IVP PRN ×9 (00:54→22:08)
[2016-11-10] MEDS: SODIUM CHLORIDE FLUSH 0.9% 10 ML SYRINGE IVP SCH ×4 (05:11→22:59)
[2016-11-10 06:06] LABS: ALBUMIN/GLOBULIN RATIO 0.6 (1.0-2.2); BILIRUBIN,TOTAL 0.7 mg/dL (0.2-1.0); CALCIUM 7.7 mg/dL (8.5-10.3); CREATININE 0.7 mg/dL (0.6-1.2); MAGNESIUM 1.7 mg/dL (1.7-2.8); PHOSPHORUS 2.7 mg/dL (2.5-4.6); TOTAL PROTEIN 5.1 g/dL (6.7-8.2)
[2016-11-10] MEDS: NICOTINE 14 MG PATCH TOP SCH (08:25)
[2016-11-10 08:28] LABS: INR 1.5 (0.8-1.2); PT - PROTHROMBIN TIME 16.9 secs (9.9-12.6)
[2016-11-10] MEDS: NEUTRA-PHOS 250 MG TABLET PO SCH ×3 (08:28→17:30)
[2016-11-10] MEDS: SENNA 8.6 MG TABLET PO SCH (08:28)
[2016-11-10] MEDS: MAGNESIUM OXIDE 400 MG TABLET PO SCH (08:29)
[2016-11-10] MEDS: DOCUSATE SODIUM 250 MG CAPSULE PO SCH (08:29)
[2016-11-10] MEDS: ENOXAPARIN 30 MG/0.3 ML SYRINGE SUBQ SCH (08:29)
[2016-11-10] MEDS: MULTIVITAMIN W/MINERALS TABLET PO SCH (08:29)
[2016-11-10] MEDS: SODIUM CHLORIDE 1 GM TABLET PO SCH ×2 (08:29→08:35)
[2016-11-10] MEDS: MORPHINE ER 15 MG TABLET PO SCH ×2 (08:29→20:37)
[2016-11-10] MEDS: POTASSIUM CHLORIDE 20 MEQ TABLET PO SCH ×2 (08:30→08:34)
[2016-11-10] MEDS: POLYETHYLENE GLYCOL 3350 17 GM PACKET PO SCH (08:30)
[2016-11-10] MEDS ORDERED: GABAPENTIN 300 MG CAPSULE PO PRN (10:24)
[2016-11-10 10:48] LABS: BASOPHILS # (AUTO) 0.1 10^3/uL (0.0-0.1); BASOPHILS % (AUTO) 0.6 %; EOSINOPHILS # (AUTO) 0.2 10^3/uL (0.0-0.7); EOSINOPHILS % (AUTO) 2.2 %; HGB - HEMOGLOBIN 9.9 g/dL (14.0-18.0); LYMPHOCYTES # (AUTO) 0.8 10^3/uL (1.5-3.5); LYMPHOCYTES % (AUTO) 8.5 %; MEAN CORPUSCULAR HEMOGLOBIN 29.1 pg (27.0-31.0); MEAN CORPUSCULAR HGB CONC 33.1 g/dL (32.0-36.0); MEAN CORPUSCULAR VOLUME 87.9 fL (80.0-94.0); MONOCYTES # (AUTO) 0.6 10^3/uL (0.0-1.0); MONOCYTES % (AUTO) 6.2 %; NEUTROPHILS # (AUTO) 8.2 10^3/uL (1.5-6.6); NEUTROPHILS % (AUTO) 82.5 %; RED BLOOD COUNT 3.41 10^6/uL (4.70-6.10); RED CELL DISTRIBUTION WIDTH 14.2 % (12.0-15.0); UNCORRECTED WHITE BLOOD COUNT 9.9 x10^3/uL; WHITE BLOOD COUNT 9.9 x10^3/uL (4.8-10.8)
[2016-11-10] MEDS: MORPHINE IR 15 MG TABLET PO PRN (14:01)
--- NOTE | 2016-11-10 15:19 | PROVIDER PROGRESS NOTE ---
Subjective - Subjective Pt reports feeling: No change Subjective: patient state he need more pain medication. explain pt how much pain medication he had now. advise pt the benefits and risks of pain medications which may cause pt's constipation, ileum and SBO. but pt persist requesting more pain medication Objective - Vital Signs/Intake & Output Vital Signs: Vital Signs x48h Temp Pulse Resp BP Pulse Ox 11/10/16 14:35 118/73 11/10/16 12:38 36.4 C L 69 20 122/78 97 11/10/16 10:10 72 106/65 11/10/16 08:24 36.4 C L 65 18 99/72 97 Intake & Output: Intake & Output 11/07/16 11/08/16 11/09/16 11/10/16 23:59 23:59 23:59 23:59 Intake Total 948 1843 3101 300 Output Total 1540 4045 525 650 Balance -592 -2202 2576 -350 - Objective General Appearance: positive: No acute distress, Alert, Anxious Eyes Bilateral: positive: Normal inspection, PERRL. negative: No lid inflammation, Conjunctivae nml ENT: positive: ENT inspection nml, Pharynx nml, No signs of dehydration Neck: positive: Nml inspection, Thyroid nml, Trachea midline. negative: Lymphadenopathy (R), Lymphadenopathy (L), Stiff neck, Carotid bruit Respiratory: positive: Chest non-tender, No respiratory distress, Breath sounds nml. negative: Wheezes, Rales, Rhonchi Cardiovascular: positive: Regular rate & rhythm, No murmur, No gallop. negative : Tachycardia, Bradycardia, Systolic murmur, Diastolic murmur Peripheral Pulses: 2+ Radial (R), 2+ Radial (L), 2+ Dorsalis pedis (R), 2+ Dorsalis pedis (L) Abdomen: positive: Non-tender, Other (hyperactive bowel sound at all). negative : Tenderness, Guarding, Rebound Back: positive: Nml inspection. negative: CVA tenderness (R), CVA tenderness (L ) Skin: positive: Color nml, Warm, Dry. negative: Diaphoresis, Skin rash Extremities: positive: Non-tender, Full ROM, Nml appearance, No pedal edema. negative: Pedal edema, Calf tenderness, Joint swelling, Melchor's sign/cords Neurologic/Psychiatric: positive: Oriented x3, CN's nml (2-12), Motor nml, Sensation nml. negative: Disoriented to person, Disoriented to place, Disoriented to time, Sensory loss, Facial droop, Slurred/abnml speech - Lab Results Fish Bones: 11/10/16 09:43 11/10/16 05:30 Other Labs: Lab Results x24hrs 11/10/16 11/10/16 11/10/16 Range/Units 09:43 08:15 05:30 WBC 9.9 (4.8-10.8) x10^3/uL RBC 3.41 L (4.70-6.10) 10^6/uL Hgb 9.9 L (14.0-18.0) g/dL Hct 30.0 L (42.0-52.0) % MCV 87.9 (80.0-94.0) fL MCH 29.1 (27.0-31.0) pg MCHC 33.1 (32.0-36.0) g/dL RDW 14.2 (12.0-15.0) % Plt Count 324 (130-450) 10^3/uL MPV 7.0 L (7.4-11.4) fL Neut # 8.2 H (1.5-6.6) 10^3/uL Lymph # 0.8 L (1.5-3.5) 10^3/uL [place] # 0.6 (0.0-1.0) 10^3/uL Eos # 0.2 (0.0-0.7) 10^3/uL Baso # 0.1 (0.0-0.1) 10^3/uL Absolute Nucleated RBC 0.00 x10^3/uL Nucleated RBCs 0.0 /100WBC PT 16.9 H (9.9-12.6) secs INR 1.5 H (0.8-1.2) Sodium 136 (135-145) mmol/L Potassium 4.0 (3.5-5.0) mmol/L Chloride 101 (101-111) mmol/L Carbon Dioxide 27 (21-32) mmol/L Anion Gap 8.0 (6-13) BUN 16 (6-20) mg/dL Creatinine 0.7 (0.6-1.2) mg/dL Estimated GFR (MDRD) 114 (>89) Glucose 99 (70-100) mg/dL Calcium 7.7 L (8.5-10.3) mg/dL Phosphorus 2.7 (2.5-4.6) mg/dL Magnesium 1.7 (1.7-2.8) mg/dL Total Bilirubin 0.7 (0.2-1.0) mg/dL AST 19 (10-42) IU/L ALT 22 (10-60) IU/L Alkaline Phosphatase 95 (42-121) IU/L Total Protein 5.1 L (6.7-8.2) g/dL Albumin 2.0 L (3.2-5.5) g/dL Globulin 3.1 (2.1-4.2) g/dL Albumin/Globulin Ratio 0.6 L (1.0-2.2) Prealbumin 7 L (18-45) mg/dL Triglycerides 120 ( - 149) mg/dL Assessment/Plan - Problem List (1) Small bowel obstruction Impression: CT and Xray of abdomen revealed persistent dilatation of large and small bowel, consult with surgeon, will follow up surgeon surgeon recommend pt still need NPO with TPN I discussed with pt for NPO and TPN. Patient refused to be NPO and have TPN. I reported to surgeon . pt continue to tolerate diet, no nausea or vomiting. pt has bowel movement also. (2) Hypotension Impression: stable, resolved (3) Cellulitis Impression: improved significantly, closely monitor (4) Drug abuse Impression: advise pt void drug abuse (5) Posttraumatic stress disorder Impression: stable, continue the treatment (6) History of COPD Impression: stable, room air SO2 97% (7) Chronic pain syndrome Impression: consult with pain management MAC. Advanced provider she came to see pt. I discussed with her, she state pt had enough pain medication, plus pt's current medical problem,SBO, constipation. She recommend no more opiates at this time. Will advance Gabapentin to pt as indicated. (8) Anemia Impression: improve, today HGB increase to 9.6, continue to monitor
[2016-11-10] MEDS: LORazepam 0.5 MG TABLET PO PRN ×2 (15:49→22:08)
[2016-11-10] MEDS ORDERED: SODIUM CHLORIDE 0.9% MINIBAG 100 ML IV ONE (16:11)
[2016-11-10] MEDS: SIMETHICONE CHEW 80 MG TABLET PO SCH ×2 (20:34→23:02)
[2016-11-11] MEDS: HYDROmorphone 1 MG/ML SYRINGE IVP PRN ×6 (04:05→18:01)
[2016-11-11] MEDS ORDERED: SODIUM CHLORIDE FLUSH 0.9% 10 ML SYRINGE IVP PRN (04:09)
[2016-11-11] MEDS: SODIUM CHLORIDE FLUSH 0.9% 10 ML SYRINGE IVP PRN ×3 (04:15→12:33)
[2016-11-11] MEDS: LORazepam 0.5 MG TABLET PO PRN ×2 (04:21→16:36)
[2016-11-11 04:23] LABS: BASOPHILS # (AUTO) 0.2 10^3/uL (0.0-0.1); BASOPHILS % (AUTO) 2.2 %; EOSINOPHILS # (AUTO) 0.2 10^3/uL (0.0-0.7); HCT - HEMATOCRIT 27.4 % (42.0-52.0); HGB - HEMOGLOBIN 9.3 g/dL (14.0-18.0); LYMPHOCYTES # (AUTO) 0.9 10^3/uL (1.5-3.5); LYMPHOCYTES % (AUTO) 11.1 %; MEAN CORPUSCULAR HEMOGLOBIN 29.8 pg (27.0-31.0); MEAN CORPUSCULAR HGB CONC 33.7 g/dL (32.0-36.0); MEAN CORPUSCULAR VOLUME 88.5 fL (80.0-94.0); MEAN PLATELET VOLUME 7.3 fL (7.4-11.4); MONOCYTES # (AUTO) 0.4 10^3/uL (0.0-1.0); MONOCYTES % (AUTO) 5.5 %; NEUTROPHILS # (AUTO) 6.3 10^3/uL (1.5-6.6); NEUTROPHILS % (AUTO) 78.2 %; RED CELL DISTRIBUTION WIDTH 14.5 % (12.0-15.0); UNCORRECTED WHITE BLOOD COUNT 8.1 x10^3/uL; WHITE BLOOD COUNT 8.1 x10^3/uL (4.8-10.8)
[2016-11-11 04:31] LABS: ALBUMIN/GLOBULIN RATIO 0.7 (1.0-2.2); BILIRUBIN,TOTAL 0.2 mg/dL (0.2-1.0); CALCIUM 7.6 mg/dL (8.5-10.3); CREATININE 0.7 mg/dL (0.6-1.2); POTASSIUM 3.8 mmol/L (3.5-5.0); TOTAL PROTEIN 5.3 g/dL (6.7-8.2)
[2016-11-11] MEDS: PIPERACILLIN/TAZOBACTAM 4.5 GM in SODIUM CHLORIDE 0.9% MINIBAG 100 ML IV SCH ×2 (06:15→14:00)
[2016-11-11] MEDS: SODIUM CHLORIDE FLUSH 0.9% 10 ML SYRINGE IVP SCH ×2 (07:18→08:07)
[2016-11-11] MEDS ORDERED: FERROUS SULFATE 325 MG TABLET PO SCH (08:00)
[2016-11-11] MEDS: NICOTINE 14 MG PATCH TOP SCH (08:10)
[2016-11-11] MEDS: ENOXAPARIN 30 MG/0.3 ML SYRINGE SUBQ SCH (08:10)
[2016-11-11] MEDS: POTASSIUM CHLORIDE 20 MEQ TABLET PO SCH ×2 (08:10→08:23)
[2016-11-11] MEDS: NEUTRA-PHOS 250 MG TABLET PO SCH ×3 (08:11→12:32)
[2016-11-11] MEDS: MAGNESIUM OXIDE 400 MG TABLET PO SCH (08:11)
[2016-11-11] MEDS: SODIUM CHLORIDE 1 GM TABLET PO SCH (08:11)
[2016-11-11] MEDS: MORPHINE ER 15 MG TABLET PO SCH (08:11)
[2016-11-11] MEDS: MULTIVITAMIN W/MINERALS TABLET PO SCH (08:12)
[2016-11-11] MEDS: SENNA 8.6 MG TABLET PO SCH (08:12)
[2016-11-11] MEDS: DOCUSATE SODIUM 250 MG CAPSULE PO SCH (08:12)
[2016-11-11] MEDS: POLYETHYLENE GLYCOL 3350 17 GM PACKET PO SCH (08:12)
[2016-11-11] MEDS: SIMETHICONE CHEW 80 MG TABLET PO SCH ×2 (11:01→14:01)
[2016-11-11] MEDS: MORPHINE IR 15 MG TABLET PO PRN ×2 (12:33→16:27)
--- NOTE | 2016-11-11 13:26 | DISCHARGE SUMMARY ---
Discharge Summary Admit Date: 10/29/16 Condition at Discharge: Good - ALLERGIES Allergies/Adverse Reactions: Allergies Allergy/AdvReac Type Severity Reaction Status Date / Time milk Allergy GI upset Verified 11/07/14 14:20 - MEDICATIONS Home Medications: Ambulatory Orders Medication Instructions Recorded Confirmed Gabapentin [Neurontin] 300 mg PO BID 10/30/16 10/30/16 Morphine Ir [Ms Ir] 15 mg PO BID PRN 10/30/16 10/30/16 Morphine Sulfate [Morphine Sulfate 30 mg PO QPM 10/30/16 10/30/16 ER] Morphine Sulfate [Morphine Sulfate 60 mg PO DAILY 10/30/16 10/30/16 ER] - LABS Result Diagrams: 11/11/16 04:10 11/11/16 04:10
--- NOTE | 2016-11-11 16:11 | XRAY Report ---
TWO-VIEW ABDOMEN: 11/11/2016 CLINICAL INDICATION: Bowel dilatation. COMPARISON: CT 11/09/2016, plain films 11/09/2016. FINDINGS: Supine and upright views of the abdomen demonstrate some interval improvement, with decrea se in caliber of the dilated small bowel loops. Multiple air-fluid levels persist. No free intraper itoneal gas is seen. Left basilar infiltrate and effusion are again noted. IMPRESSION: SOME INTERVAL IMPROVEMENT, WITH DECREASE IN CALIBER OF THE DILATED SMALL BOWEL LOOPS. N O EVIDENCE OF PERFORATION. JOB #: [id number] EXT JOB #:[id number]
[2016-11-11 16:16] VITALS: BP 113/72
[2016-11-11] MEDS ORDERED: SACCHAROMYCES BOULARDII 250 MG CAPSULE PO SCH (17:00)
--- NOTE | 2016-11-11 17:11 | Discharge Plan ---
Discharge Plan Disposition: Home, Self Care Condition: Poor Prescriptions: Amox/Clav 500/125 [Augmentin] 1 each PO Q12H #20 tablet Ferrous Sulfate 325 mg PO DAILY #30 tablet Diet: Soft Activity Restrictions: Activity as Tolerated Shower Restrictions: No Assistance Devices: Walker Weight Bearing: Full Weight Additional Instructions or Follow Up instructions: patient requests to be discharged to home. Patient is advised that his condition is still unstable, could deteriorate. If symptoms return or worsen, call 911 or go to the nearest emergence department. Patient is welcomed to our service. May see PCP in one week, and see Electronics Test Engineer in two weeks May have abdomen and chest X-ray in one week May have blood workup in one week Follow-Up Care: Dietitian, Home Health - RN, Home Health - PT No Smoking: If you smoke, Please STOP! Call for help.
--- NOTE | 2016-11-11 18:06 | PROVIDER PROGRESS NOTE ---
Subjective - General Admit Date: 10/29/16 - Review of Systems General: positive: No symptoms Objective - Patient Data Vital Signs: Vital Signs x48h Temp Pulse Resp BP Pulse Ox 11/11/16 16:13 37.2 C 66 24 113/72 97 11/11/16 13:15 36.3 C L 72 17 130/78 97 11/11/16 12:40 102/63 Weight: Weight 11/09/16 11/10/16 11/11/16 23:59 23:59 23:59 Weight (kg) 80 kg 59.5 kg 58 kg Intake & Output: Intake and Output Totals x24h 11/09/16 11/10/16 11/11/16 23:59 23:59 23:59 Intake Total 3101 615 960 Output Total 525 1000 1100 Balance 2594 -922 -793 - Lab Results Lab Results: 11/11/16 04:10 11/11/16 04:10 Other Lab Results: Lab Results x24hrs 11/11/16 11/11/16 11/11/16 Range/Units 11:25 04:10 04:10 WBC 8.1 (4.8-10.8) x10^3/uL RBC 3.10 L (4.70-6.10) 10^6/uL Hgb 9.3 L (14.0-18.0) g/dL Hct 27.4 L (42.0-52.0) % MCV 88.5 (80.0-94.0) fL MCH 29.8 (27.0-31.0) pg MCHC 33.7 (32.0-36.0) g/dL RDW 14.5 (12.0-15.0) % Plt Count 275 (130-450) 10^3/uL MPV 7.3 L (7.4-11.4) fL Neut # 6.3 (1.5-6.6) 10^3/uL Lymph # 0.9 L (1.5-3.5) 10^3/uL [place] # 0.4 (0.0-1.0) 10^3/uL Eos # 0.2 (0.0-0.7) 10^3/uL Baso # 0.2 H (0.0-0.1) 10^3/uL Absolute Nucleated RBC 0.00 x10^3/uL Nucleated RBCs 0.0 /100WBC Sodium 136 (135-145) mmol/L Potassium 3.8 (3.5-5.0) mmol/L Chloride 105 (101-111) mmol/L Carbon Dioxide 25 (21-32) mmol/L Anion Gap 6.0 (6-13) BUN 13 (6-20) mg/dL Creatinine 0.7 (0.6-1.2) mg/dL Estimated GFR (MDRD) 114 (>89) Glucose 92 (70-100) mg/dL POC Whole Bld Glucose 87 (70 - 100) mg/dL Calcium 7.6 L (8.5-10.3) mg/dL Total Bilirubin 0.2 (0.2-1.0) mg/dL AST 17 (10-42) IU/L ALT 18 (10-60) IU/L Alkaline Phosphatase 102 (42-121) IU/L Total Protein 5.3 L (6.7-8.2) g/dL Albumin 2.1 L (3.2-5.5) g/dL Globulin 3.2 (2.1-4.2) g/dL Albumin/Globulin Ratio 0.7 L (1.0-2.2) Blood Type Antibody Screen Crossmatch IS Only 11/06/16 Range/Units 07:50 WBC (4.8-10.8) x10^3/uL RBC (4.70-6.10) 10^6/uL Hgb (14.0-18.0) g/dL Hct (42.0-52.0) % MCV (80.0-94.0) fL MCH (27.0-31.0) pg MCHC (32.0-36.0) g/dL RDW (12.0-15.0) % Plt Count (130-450) 10^3/uL MPV (7.4-11.4) fL Neut # (1.5-6.6) 10^3/uL Lymph # (1.5-3.5) 10^3/uL [place] # (0.0-1.0) 10^3/uL Eos # (0.0-0.7) 10^3/uL Baso # (0.0-0.1) 10^3/uL Absolute Nucleated RBC x10^3/uL Nucleated RBCs /100WBC Sodium (135-145) mmol/L Potassium (3.5-5.0) mmol/L Chloride (101-111) mmol/L Carbon Dioxide (21-32) mmol/L Anion Gap (6-13) BUN (6-20) mg/dL Creatinine (0.6-1.2) mg/dL Estimated GFR (MDRD) (>89) Glucose (70-100) mg/dL POC Whole Bld Glucose (70 - 100) mg/dL Calcium (8.5-10.3) mg/dL Total Bilirubin (0.2-1.0) mg/dL AST (10-42) IU/L ALT (10-60) IU/L Alkaline Phosphatase (42-121) IU/L Total Protein (6.7-8.2) g/dL Albumin (3.2-5.5) g/dL Globulin (2.1-4.2) g/dL Albumin/Globulin Ratio (1.0-2.2) Blood Type Cancelled Antibody Screen Cancelled Crossmatch IS Only See Detail - Imaging Results Imaging Results Comments: improved small/large bowel dilation - Current Medications Current Medications: Current Medications Generic Name Dose Route Start Last Admin Trade Name Freq PRN Reason Stop Dose Admin Clonidine HCl 0.1 mg 10/30/16 07:23 11/08/16 12:37 Catapres PO 0.1 mg PRN PRN Administration Blood Pressure Docusate Sodium 250 - 500 mg 10/31/16 09:00 11/11/16 08:12 Colace 250mg Capsule PO Not Given DAILY RAFA Enoxaparin Sodium 30 mg 11/10/16 09:00 11/11/16 08:10 Lovenox SUBQ 30 mg DAILY RAFA Administration Ferrous Sulfate 325 mg 11/11/16 08:00 11/11/16 08:10 Feosol PO 325 mg DAILYWM RAFA Administration Gabapentin 300 mg 11/10/16 10:24 11/10/16 15:49 Neurontin PO 300 mg TID PRN Administration PAIN Hydromorphone HCl 1 mg 11/02/16 13:55 11/11/16 15:02 Dilaudid Inj IVP 1 mg Q2HR PRN Administration PAIN Levofloxacin 150 mls @ 100 mls/hr 11/05/16 16:00 11/11/16 16:28 Levaquin 750 Mg/150 Ml IV 100 mls/hr Q24H RAFA Administration Piperacillin Sod/Tazobactam 100 mls @ 100 mls/hr 11/05/16 18:00 11/11/16 14:00 Sod 4.5 gm/ Sodium Chloride IV 100 mls/hr Q6HR RAFA Administration Lidocaine HCl 5 ml 11/04/16 19:55 11/04/16 21:01 Xylocaine Viscous 2% MM 5 ml Q4H PRN Administration Mouth Sore Pain Lorazepam 0.5 mg 11/10/16 15:02 11/11/16 16:36 Ativan PO 0.5 mg Q6H PRN Administration Anxiety Magnesium Oxide 400 mg 11/08/16 19:00 11/11/16 08:11 Mag Ox PO 400 mg DAILYWM RAFA Administration Morphine Sulfate 15 mg 10/29/16 22:03 11/11/16 16:27 Ms Ir PO 15 mg Q4H PRN Administration breakthrough PAIN Morphine Sulfate 30 mg 10/29/16 22:08 11/11/16 08:11 PO 30 mg BID RAFA Administration Multivitamins/Minerals 1 tab 11/08/16 19:00 11/11/16 08:12 Theragran M PO 1 tab DAILYWM RAFA Administration Nicotine 1 patch 11/09/16 13:00 11/11/16 08:10 Nicoderm TOP 1 patch DAILY RAFA Administration Ondansetron HCl 4 mg 10/29/16 20:41 11/04/16 08:14 Zofran Odt TL 4 mg Q4HR PRN Administration Nausea / Vomiting Polyethylene Glycol 17 gm 10/30/16 09:00 11/11/16 08:12 Miralax PO Not Given DAILY RAFA Potassium Chloride 20 meq 11/08/16 19:00 11/11/16 08:23 K-Dur PO Not Given DAILYWM RAFA Senna 8.6 - 17.2 mg 10/31/16 09:00 11/11/16 08:12 Senokot PO Not Given DAILY RAFA Simethicone 80 mg 11/10/16 18:00 11/11/16 14:01 Mylicon PO 80 mg 0900,1300,1800,2100 RAFA Administration Sodium Chloride 10 ml 10/29/16 20:35 11/11/16 12:33 Normal Saline Flush 0.9% IVP 10 ml PRN PRN Administration NEEDED PER PROVIDER ORDERS Sodium Chloride 10 ml 10/29/16 22:00 11/11/16 08:07 Normal Saline Flush 0.9% IVP 10 ml Q8HR RAFA Administration Sodium Chloride 1 gm 11/03/16 09:00 11/11/16 08:11 Salt Tab PO 1 gm DAILY RAFA Administration Sodium Phosphate 250 mg 11/06/16 08:00 11/11/16 12:32 K-Phos Neutral PO Not Given TIDWM RAFA - Physical Exam Abdomen: positive: Other (non tender. mildly distended. +bs) Impression/Plan - Problem List Problem List: ileus secondary to all his medical conditions. The ileus has improved significantly with him now eating and having multiple bowel movements. May d/c home from surgery standpoint.
--- NOTE | 2016-11-12 08:32 | DISCHARGE SUMMARY ---
DATE OF ADMISSION: 10/29/2016 DATE OF DISCHARGE: 11/11/2016 DISCHARGE DIAGNOSES 1. Bacterial pneumonia in progress, and the patient requested discharge and continue to treat with an tibiotics. 2. Cellulitis in the bilateral lower extremities, is resolved. 3. Hepatic ascites, mild to moderate, chronic condition, outpatient management. 4. Chronic chronic obstructive pulmonary disease. No exacerbation and chronic outpatient management. 5. Chronic pain syndrome. The patient has pain management and a contract for the pain management, chr onic condition. Will be outpatient management. 6. Hypotension, resolved. 7. Dilated of large and small bowel, in progress, improved. The patient requested discharge and the patient has discharge instructions. Continue outpatient manag ement and the patient advised to see gastroendocrinologist and PCP in 1-2 weeks for the continued man agement. Also, the patient advised to take an x-ray of the abdomen and x-ray of the chest to see the progress. HOSPITAL COURSE: The patient admitted 10/29 with a chief complaint of lower extremity cellulitis. The n, the patient developed pneumonia and also then the patient developed severe anemia and small bowel obstruction. The patient's cellulitis chief complaint and anemia, we treated with antibiotics and WBC s continued to come down to the normal range. The patient with no fever, no chills. Room air 90, 96, 95, 96% range. The patient with small bowel obstruction. The patient was TPN and n.p.o. after that. T he patient gradually given food and the patient tolerated with no nausea, no vomiting, and the patien t also continued to have bowel movement. The test for the C. diff was negative and blood in the stool test also negative. The patient has chronic pain syndrome and the patient continued to request more and more pain medication. Advised the patient his small bowel obstruction or ileus could be caused by chronic pain . The patient stated he understands and he has pain contract with pain manageme nt . The patient continued check for the small bowel obstruction for the CT of the a bdomen, CT of the chest, and also for the pneumonia and x-ray of the abdomen. X-ray of the abdomen sh owed the patient's progress and reduced dilation of the colon and also improved for the small bowel d ilation. DISCHARGE HOME MEDICATIONS 1. Morphine extended release 30 mg p.o. q.p.m. 2. Morphine extended release 60 mg daily. 3. Gabapentin 300 mg b.i.d. 4. Morphine IR 60 mg b.i.d. p.r.n. This is home medication and the patient reported pain management c ontract gives him the pain medication. NEW MEDICATION 1. Augmentin 500/225 b.i.d. for 10 days. 2. Ferrous Sulfate 325 mg daily a month. DISCHARGE INSTRUCTIONS: The patient is advised his condition is unstable and could it be tolerated, a nd the patient advised if symptoms return or become worse, he is advised to call 911 and go to the em ergency room near his home and the patient will come to our service. The patient requested discharge almost for the last few days or everyday, he said he wants to go, why not. He wanted to sign the AMA before yesterday, also yesterday. The patient advised to see PCP in 1 week and gastroendocrinologist in 2 weeks. The patient advised to take chest x-ray and x-ray of the abdomen in 1 week. The patient a lso advised to do blood work in 1 week. The patient will also have home health and home heal th PT, continue care of the patient. The patient agreeing to the pain management at this point and th e patient states he has a contract with pain management. He is agreeing no further pain medication we could offer to him. The patient had surgeon consult in the hospital and also agreeing to discharge t he patient on 11/11/2016. The time spent in discharge of the patient was over 50 minutes. INTERVAL HISTORY: The patient is here today for reevaluation JOB #: [id number] EXT JOB #:[id number]
== END 2016-11-11 18:46 | disposition home health service (06) | DRG 602 ==
LOC: ED 17:43 → MS 20:35 → MS2 11-01 09:08
PROVIDERS: ADMIT Specialist; ATTEND Nurse Practitioner Gerontology
PROC: 02HV33Z Insertion of Infusion Device into Superior Vena Cava, Percutaneous Approach (ICD-10-PCS; principal; 2016-11-02)
PROC: 3E0436Z Introduction of Nutritional Substance into Central Vein, Percutaneous Approach (ICD-10-PCS; 2016-11-05)
PROC: 30233N1 Transfusion of Nonautologous Red Blood Cells into Peripheral Vein, Percutaneous Approach (ICD-10-PCS; 2016-11-08)
DX: L03.116 Cellulitis of left lower limb (principal); J15.9 Unspecified bacterial pneumonia; L95.9 Vasculitis limited to the skin, unspecified; I10 Essential (primary) hypertension; G89.29 Other chronic pain; G62.9 Polyneuropathy, unspecified; M54.9 Dorsalgia, unspecified; J44.9 Chronic obstructive pulmonary disease, unspecified; F17.200 Nicotine dependence, unspecified, uncomplicated; Z87.01 Personal history of pneumonia (recurrent); Z79.891 Long term (current) use of opiate analgesic; J44.0 Chronic obstructive pulmonary disease with (acute) lower respiratory infection; Z85.828 Personal history of other malignant neoplasm of skin; R64 Cachexia; F11.20 Opioid dependence, uncomplicated; Z68.1 Body mass index [BMI] 19.9 or less, adult; E87.1 Hypo-osmolality and hyponatremia; L97.909 Non-pressure chronic ulcer of unspecified part of unspecified lower leg with unspecified severity; K56.69 Other intestinal obstruction; D62 Acute posthemorrhagic anemia; L03.115 Cellulitis of right lower limb; K70.11 Alcoholic hepatitis with ascites; G89.4 Chronic pain syndrome; M54.5 Low back pain; K02.9 Dental caries, unspecified; F43.10 Post-traumatic stress disorder, unspecified; F41.9 Anxiety disorder, unspecified; F32.9 Major depressive disorder, single episode, unspecified; F15.10 Other stimulant abuse, uncomplicated; R01.1 Cardiac murmur, unspecified; M79.642 Pain in left hand; M79.641 Pain in right hand; B19.20 Unspecified viral hepatitis C without hepatic coma; K74.60 Unspecified cirrhosis of liver; Y95 Nosocomial condition; E53.8 Deficiency of other specified B group vitamins; D50.9 Iron deficiency anemia, unspecified; D53.9 Nutritional anemia, unspecified; I95.9 Hypotension, unspecified; I87.2 Venous insufficiency (chronic) (peripheral); Z87.19 Personal history of other diseases of the digestive system; Z85.820 Personal history of malignant melanoma of skin; Z85.07 Personal history of malignant neoplasm of pancreas; Z72.0 Tobacco use
CPT/HCPCS: 36415; 71010; 71250; 74020; 74176; 74177; 76705; 80048; 80053; 80306; 81001; 82140; 82150; 82270; 82550; 82607; 82728; 82977; 83540; 83605; 83615; 83690; 83735; 83880; 84100; 84134; 84466; 84478; 85025; 85044; 85610; 85651; 85730; 86140; 86850; 86900; 86901; 86920; 87040; 87205; 87493; 87640; 93005; 93306; 93970; 96361; 96365; 96375; 99283; 99284; 99285

== ENCOUNTER 2016-11-30 12:09 | Outpatient (CLI) | payer MEDICARE ==
[2016-11-30 12:44] LABS: BASOPHILS % (AUTO) 0.5 %; EOSINOPHILS # (AUTO) 0.1 10^3/uL (0.0-0.7); HCT - HEMATOCRIT 32.3 % (42.0-52.0); HGB - HEMOGLOBIN 10.7 g/dL (14.0-18.0); LYMPHOCYTES # (AUTO) 1.2 10^3/uL (1.5-3.5); MEAN CORPUSCULAR HEMOGLOBIN 29.8 pg (27.0-31.0); MEAN CORPUSCULAR HGB CONC 33.1 g/dL (32.0-36.0); MEAN CORPUSCULAR VOLUME 89.9 fL (80.0-94.0); MEAN PLATELET VOLUME 7.1 fL (7.4-11.4); MONOCYTES # (AUTO) 0.4 10^3/uL (0.0-1.0); MONOCYTES % (AUTO) 5.7 %; NEUTROPHILS # (AUTO) 5.9 10^3/uL (1.5-6.6); NEUTROPHILS % (AUTO) 76.8 %; RED BLOOD COUNT 3.59 10^6/uL (4.70-6.10); RED CELL DISTRIBUTION WIDTH 16.6 % (12.0-15.0); UNCORRECTED WHITE BLOOD COUNT 7.7 x10^3/uL; WHITE BLOOD COUNT 7.7 x10^3/uL (4.8-10.8)
[2016-11-30 13:06] LABS: ALBUMIN/GLOBULIN RATIO 0.8 (1.0-2.2); BILIRUBIN,TOTAL 0.4 mg/dL (0.2-1.0); CALCIUM 8.9 mg/dL (8.5-10.3); CREATININE 0.6 mg/dL (0.6-1.2); POTASSIUM 4.2 mmol/L (3.5-5.0); TOTAL PROTEIN 7.2 g/dL (6.7-8.2)
--- NOTE | 2016-11-30 18:56 | XRAY Report ---
TWO VIEW ABDOMEN: 11/30/2016 CLINICAL INDICATION: Chronic viral hepatitis C. Supine and upright views of the abdomen are compared to previous films of 11/11/2016. A large amount of stool remains in the colon. Previously seen small bowel dilatation has resolved. No free intrap eritoneal gas is appreciated. IMPRESSION: CONSTIPATION. NO EVIDENCE OF PERSISTENT SMALL BOWEL DILATATION. JOB #: [id number] EXT JOB #:[id number]
--- NOTE | 2016-12-01 10:35 | XRAY Report ---
TWO VIEW CHEST: 11/30/2016 CLINICAL INDICATION: COPD. COMPARISON: 11/02/2016, CT 11/03/2016. Frontal and lateral views of the chest demonstrate a normal cardiac silhouette. The lungs are hyperi nflated. No focal consolidation, effusion or pneumothorax is present. IMPRESSION: COPD, BUT NO EVIDENCE OF ACUTE CARDIOPULMONARY DISEASE. JOB #: [id number] EXT JOB #:[id number]
== END 2016-11-30 12:10 | disposition home or self-care (01) ==
LOC: LAB 12:09
PROVIDERS: ATTEND Physician Assistant
DX: B18.2 Chronic viral hepatitis C (principal); J44.9 Chronic obstructive pulmonary disease, unspecified; K59.00 Constipation, unspecified
CPT/HCPCS: 36415; 71020; 74020; 80053; 85025

== ENCOUNTER 2017-09-06 20:46 | Inpatient (IN) | payer MEDICARE ==
[2017-09-06 23:12] LABS: BASOPHILS # (AUTO) 0.1 10^3/uL (0.0-0.1); BASOPHILS % (AUTO) 0.7 %; EOSINOPHILS # (AUTO) 0.3 10^3/uL (0.0-0.7); EOSINOPHILS % (AUTO) 3.6 %; HGB - HEMOGLOBIN 11.8 g/dL (14.0-18.0); LYMPHOCYTES # (AUTO) 1.4 10^3/uL (1.5-3.5); LYMPHOCYTES % (AUTO) 15.1 %; MEAN CORPUSCULAR HEMOGLOBIN 25.9 pg (27.0-31.0); MEAN CORPUSCULAR HGB CONC 31.8 g/dL (32.0-36.0); MEAN CORPUSCULAR VOLUME 81.3 fL (80.0-94.0); MEAN PLATELET VOLUME 7.6 fL (7.4-11.4); MONOCYTES # (AUTO) 0.6 10^3/uL (0.0-1.0); MONOCYTES % (AUTO) 6.7 %; NEUTROPHILS # (AUTO) 6.7 10^3/uL (1.5-6.6); NEUTROPHILS % (AUTO) 73.9 %; PLT - PLATELET COUNT 293 10^3/uL (130-450); RED BLOOD COUNT 4.56 10^6/uL (4.70-6.10); RED CELL DISTRIBUTION WIDTH 16.6 % (12.0-15.0)
[2017-09-06 23:28] LABS: ALBUMIN 2.7 g/dL (3.2-5.5); ALBUMIN/GLOBULIN RATIO 0.6 (1.0-2.2); ALKALINE PHOSPHATASE 104 IU/L (42-121); ALT ALANINE AMINOTRANSFERASE < 10 IU/L (10-60); AST ASPARTATE AMINOTRANSFERASE 16 IU/L (10-42); BILIRUBIN,TOTAL 0.3 mg/dL (0.2-1.0); BUN - BLOOD UREA NITROGEN 13 mg/dL (6-20); CALCIUM 8.4 mg/dL (8.5-10.3); CARBON DIOXIDE - CO2 32 mmol/L (21-32); CHLORIDE 97 mmol/L (101-111); CREATININE 0.8 mg/dL (0.6-1.2); CRP - C-REACTIVE PROTEIN 7.5 mg/dL (0-1.0); GFR - MDRD 97 (>89); GLUCOSE 121 mg/dL (70-100); LIPASE 30 U/L (22-51); SODIUM 137 mmol/L (135-145); TOTAL PROTEIN 7.6 g/dL (6.7-8.2)
[2017-09-06] MEDS ORDERED: SULFAMETH/TRIMETH DS 800/160 MG TABLET PO STA (23:31)
[2017-09-06] MEDS ORDERED: LIDOCAINE 1% 2 ML VIAL SUBQ ONE (23:31)
[2017-09-06] MEDS ORDERED: cefTRIAXone 1 GM VIAL IM STA (23:31)
[2017-09-06] MEDS ORDERED: KETOROLAC 60 MG/2 ML VIAL IM STA (23:35)
--- NOTE | 2017-09-06 23:45 | ED Physician Documentation ---
History of Present Illness - Stated complaint Stated Complaint: LEG PX - Chief complaint Chief Complaint: Ext Problem - History obtained from History obtained from: Patient - History of Present Illness Timing: How many weeks ago (several) Pain level max: 8 Pain level now: 8 - Additonal information Additional information: Patient is a 62-year-old male who presents to the emergency department with bilateral lower extremity pain. States increasing redness, swelling and drainage from the legs. Has had cellulitis several times in the past. Is feeling feverish and chilled at home. He has not been on any antibiotics recently. Worse with walking. Better with elevation. Has not had any wound care. Review of Systems Ten Systems: 10 systems reviewed and negative Constitutional: reports: Fever (subjective), Chills Nose: denies: Rhinorrhea / runny nose, Congestion Throat: denies: Sore throat Cardiac: denies: Chest pain / pressure Respiratory: denies: Cough GI: denies: Vomiting, Diarrhea Musculoskeletal: denies: Neck pain, Back pain Neurologic: denies: Headache PD PAST MEDICAL HISTORY - Past Medical History Past Medical History: Yes Cardiovascular: Hypertension Respiratory: COPD, Pneumonia Endocrine/Autoimmune: None GI: Other : None HEENT: None Psych: Depression, Post traumatic stress disorder Musculoskeletal: Chronic back pain Derm: None - Past Surgical History Past Surgical History: Yes General: Other Ortho: Spine surgery Derm: Skin cancer surgery - Present Medications Home Medications: Ambulatory Orders Medication Instructions Recorded Confirmed Gabapentin [Neurontin] 300 mg PO BID 10/30/16 10/30/16 Morphine Ir [Ms Ir] 15 mg PO BID PRN 10/30/16 10/30/16 Morphine Sulfate [Morphine Sulfate 30 mg PO QPM 10/30/16 10/30/16 ER] Morphine Sulfate [Morphine Sulfate 60 mg PO DAILY 10/30/16 10/30/16 ER] Amox/Clav 500/125 [Augmentin] 1 each PO Q12H #20 tablet 11/11/16 Ferrous Sulfate 325 mg PO DAILY #30 tablet 11/11/16 - Allergies Allergies/Adverse Reactions: Allergies Allergy/AdvReac Type Severity Reaction Status Date / Time milk Allergy GI upset Verified 09/06/17 21:06 - Social History Does the pt smoke?: Yes Smoking Status: Current every day smoker Does the pt drink ETOH?: Yes Does the pt have substance abuse?: No - Immunizations Immunizations are current?: Yes - POLST Patient has POLST: No PD ED PE NORMAL - Vitals Vital signs reviewed: Yes - General General: Alert and oriented X 3, No acute distress - HEENT HEENT: Moist mucous membranes - Neck Neck: Supple, no meningeal sign - Cardiac Cardiac: RRR, Strong equal pulses - Respiratory Respiratory: No respiratory distress, Clear bilaterally - Abdomen Abdomen: Soft, Non tender, Non distended - Derm Derm: Warm and dry - Extremities Extremities: Other (B LE - diffuse scaling rash to B LE with weeping edema. bright erythematous skin with breakdown across the feet and to the knees B. ) - Neuro Neuro: Alert and oriented X 3 - Psych Psych: Normal mood, Normal affect Results - Vitals Vitals: Vital Signs - 24 hr 09/06/17 21:04 Temperature 36.4 C L Heart Rate 114 H Respiratory 16 Rate Blood Pressure 174/115 H O2 Saturation 99 Oxygen O2 Source [Without Activity] Room air O2 Source Room air - Labs Labs: Laboratory Tests 09/06/17 09/06/17 09/06/17 23:00 23:00 23:00 WBC 9.0 RBC 4.56 L Hgb 11.8 L Hct 37.0 L MCV 81.3 MCH 25.9 L MCHC 31.8 L RDW 16.6 H Plt Count 293 MPV 7.6 Neut # 6.7 H Lymph # 1.4 L Power # 0.6 Eos # 0.3 Baso # 0.1 Absolute Nucleated RBC 0.00 Nucleated RBC % 0.0 ESR Sodium 137 Potassium 3.9 Chloride 97 L Carbon Dioxide 32 Anion Gap 8.0 BUN 13 Creatinine 0.8 Estimated GFR (MDRD) 97 Glucose 121 H Lactic Acid 1.8 Calcium 8.4 L Total Bilirubin 0.3 AST 16 ALT < 10 L Alkaline Phosphatase 104 C-Reactive Protein 7.5 H Total Protein 7.6 Albumin 2.7 L Globulin 4.9 H Albumin/Globulin Ratio 0.6 L Lipase 30 09/06/17 23:00 WBC RBC Hgb Hct MCV MCH MCHC RDW Plt Count MPV Neut # Lymph # Power # Eos # Baso # Absolute Nucleated RBC Nucleated RBC % ESR 38 H Sodium Potassium Chloride Carbon Dioxide Anion Gap BUN Creatinine Estimated GFR (MDRD) Glucose Lactic Acid Calcium Total Bilirubin AST ALT Alkaline Phosphatase C-Reactive Protein Total Protein Albumin Globulin Albumin/Globulin Ratio Lipase PD MEDICAL DECISION MAKING - ED course Complexity details: reviewed results, re-evaluated patient, considered differential, d/w patient, d/w revenue cycle consultant ED course: Patient is a 62-year-old male who presents to the emergency department with what appears to be a chronic dermatitis of the lower extremities complicated by likely secondary tinea infection as well as cellulitis. Has been having subjective fevers and chills. Given the extensive nature of his symptoms, IM antibiotics and oral antibiotics were used. He states that he always requires a PICC line for IV antibiotics and a peripheral IV was unable to be started in the emergency department. Therefore we will have him further evaluated while on the hospitalist service for IV vs PICC. Patient would also likely benefit from wound care. Discussed the case with Dr. Torres, who accepts. Patient has an elevated ESR and CRP. Normal lactate. This document was made in part using voice recognition software. While efforts are made to proofread this document, sound alike and grammatical errors may occur. Departure - Departure Disposition: ED Place in Observation Clinical Impression: Cellulitis Qualifiers: Site of cellulitis: extremity Site of cellulitis of extremity: lower extremity Laterality: unspecified laterality Qualified Code(s): L03.119 - Cellulitis of unspecified part of limb Condition: Stable Discharge Date/Time: 09/07/17 01:05
[2017-09-07] MEDS ORDERED: ACETAMINOPHEN 325 MG TABLET PO PRN (00:25)
[2017-09-07] MEDS ORDERED: ZOLPIDEM 5 MG TABLET PO PRN (00:25)
[2017-09-07] MEDS ORDERED: PROMETHAZINE 25 MG/1 ML VIAL IM PRN (00:25)
[2017-09-07] MEDS ORDERED: PROCHLORPERAZINE 10 MG/2 ML VIAL IVP PRN (00:25)
[2017-09-07] MEDS ORDERED: ONDANSETRON 4 MG/2 ML VIAL IVP PRN (00:25)
[2017-09-07] MEDS ORDERED: SODIUM CHLORIDE 0.9% 1,000 ML IV SCH (01:00)
[2017-09-07] MEDS ORDERED: VANCOMYCIN PER PHARMACY 0.1 GM in SODIUM CHLORIDE 0.9% 250 ML IV SCH (01:00)
[2017-09-07] MEDS: SODIUM CHLORIDE FLUSH 0.9% 10 ML SYRINGE IVP SCH ×3 (01:13→16:53)
[2017-09-07] MEDS ORDERED: VANCOMYCIN INJ 0.75 GM in SODIUM CHLORIDE 0.9% 250 ML IV SCH (02:00)
[2017-09-07] MEDS: MORPHINE IR 15 MG TABLET PO PRN ×2 (02:05→12:38)
--- NOTE | 2017-09-07 02:37 | HISTORY & PHYSICAL EXAMINATION ---
Chief Complaint - Chief Complaint Chief Complaint: Bilateral lower extremity pain, swelling and redness History of Present Illness - Admitted From Admitted From:: Emergency department - History Obtained From Records Reviewed: Yes History obtained from: Patient and medical records Exam Limitations: None - History of Present Illness HPI Comment/Other: Patient is a 62-year-old gentleman with a past medical history significant for hypertension for which he does not take any meds, COPD, tobacco abuse, history of melanoma in remission, history of pancreatic cancer in remission, chronic back pain with history of 2 spinal surgeries and recurrent cellulitis of the bilateral lower extremities who presents to the emergency department with a chief complaint of bilateral lower extremity pain, swelling and redness. The patient states that his lower extremity pain, swelling and redness have been ongoing for the last 2 months. He states that initially the symptoms improved over the first month but over the last month they have become increasingly worse. He states specifically the pain is becoming severe to a point where he is having difficulty moving around and getting around even with a walker. He states that he always feels cold but denies any fevers. He states the pain is mostly located at his ankles with a stabbing/burning type pain. He states that when this all initially started it started with abscesses in his legs but currently he denies having any abscesses. He does admit to some drainage from bilateral legs and states that he has had skin that has been peeling off. He states that specifically peels off when he takes off his socks. He states that for these bilateral wounds he has been using baby powder and a cortisol cream but these have not been helping. The patient was last hospitalized here at [facility] in October 2016 with cellulitis. The patient states he currently lives with some friends and does not see anyone at the wound clinic. Patient denies any headaches, blurred vision, runny nose, sore throat, nasal congestion, difficulty swallowing, chest pain, shortness of air, cough, orthopnea, PND, abdominal pain, nausea, vomiting, diarrhea, constipation, urinary urgency, urinary frequency, dysuria, muscle aches, neck stiffness, focal neurologic deficits, polydipsia, polyuria, changes in his appetite, recent unintentional weight loss or any night sweats. The patient has continued lower back pain which is never completely controlled. On presentation to the emergency department the patient is afebrile, tachycardic and hypertensive but with normal O2 saturation and in no respiratory distress. The patient did appear to be in significant pain and was given Toradol in the emergency department with which the patient's pain continued to be uncontrolled. The patient had obvious cellulitis of his bilateral lower extremities. The patient's WBC was not elevated but CRP and ESR were. Patient's electrolytes appear to be mostly normal. The patient was given IM Rocephin and 1 dose of Bactrim in the emergency department as they were unable to get an IV. The patient was placed in observation for further antibiotic treatment and wound care. History - Past Medical History Cardiovascular: reports: Hypertension Respiratory: reports: COPD, Pneumonia Neuro: reports: None Endocrine/Autoimmune: reports: None GI: reports: Other : reports: None HEENT: reports: None Psych: reports: Depression, Post traumatic stress disorder Musculoskeletal: reports: Chronic back pain Derm: reports: None MRSA Hx?: No - Past Surgical History General: reports: Other Ortho: reports: Spine surgery Derm: reports: Skin cancer surgery - Family & Social History Family History: Mother: Hypertension, Father: Cancer (Lung) Living arrangement: At home Living Situation: With friend(s) Social History Notes: Patient states that he lives in [place] with some friends. He states he lives with a and their kids. He states that he was born in [place] as his father was in the [employer]. He states that he grew up on the [facility] and moved [facility] in 1987 and has lived here since. He has 5 children all boys. He is his of cancer in the year 1999. He smokes half a pack a day and has been smoking since the age of 10. He denies any alcohol abuse and states he does not use any illicit drugs. He states that he has smoked marijuana in the past. - POLST Patient has POLST: No POLST Status: Full Code Meds/Allgy - Home Medications Home Medications: Ambulatory Orders Medication Instructions Recorded Confirmed Gabapentin [Neurontin] 300 mg PO BID 10/30/16 10/30/16 Morphine Ir [Ms Ir] 15 mg PO BID PRN 10/30/16 10/30/16 Morphine Sulfate [Morphine Sulfate 30 mg PO QPM 10/30/16 10/30/16 ER] Morphine Sulfate [Morphine Sulfate 60 mg PO DAILY 10/30/16 10/30/16 ER] Amox/Clav 500/125 [Augmentin] 1 each PO Q12H #20 tablet 11/11/16 Ferrous Sulfate 325 mg PO DAILY #30 tablet 11/11/16 - Allergies Allergies/Adverse Reactions: Allergies Allergy/AdvReac Type Severity Reaction Status Date / Time milk Allergy GI upset Verified 09/06/17 21:06 Review of Systems - Other Findings Other Findings: A comprehensive review of systems was performed the pertinent positives and negatives are stated above in the HPI and the remainder of the review of systems is negative. Exam - Vital Signs Vital Signs: Vital Signs x48h Temp Pulse Resp BP Pulse Ox 09/07/17 00:41 36.9 C 99 17 168/99 H 99 - Physical Exam General Appearance: positive: Alert, Mild distress (pain), Other (Disheveled appearing, poor hygein) Eyes Bilateral: positive: Normal inspection, PERRL, EOMI, No lid inflammation, Conjunctivae nml, No scleral icterus ENT: positive: ENT inspection nml, Pharynx nml, Dry mucous membranes. negative : Purulent nasal drainage, Pharyngeal erythema, Oral lesions Neck: positive: Nml inspection, Thyroid nml, No JVD, Trachea midline. negative : Thyromegaly, Lymphadenopathy (R), Lymphadenopathy (L), Kernig's sign, Carotid bruit, Tracheal deviation Respiratory: positive: Chest non-tender, Wheezes (scattered), Other (Decreased breath sounds bilaterally). negative: Rales, Rhonchi Cardiovascular: positive: Regular rate & rhythm, No murmur, No gallop Peripheral Pulses: positive: 2+ Abdomen: positive: Non-tender, No organomegaly, Nml bowel sounds, No distention. negative: Guarding, Rebound, Hepatomegaly Back: positive: Nml inspection. negative: CVA tenderness (R), CVA tenderness (L ) Skin: positive: Other (Bilateral redness, swelling and tenderness of lower extremities. Erythema is up to knees bilaterally. There is skin breakdown and significant drainage from bilateral lower extremities without any obvious abscess.). negative: Cyanosis, Pallor Extremities: positive: Non-tender, Full ROM, Pedal edema, Other (Bilateral lower extremity erythema, swelling, warmth and tenderness as above) Neurologic/Psychiatric: positive: Oriented x3, CN's nml (2-12), Motor nml, Sensation nml, Mood/affect nml Conclusion/Plan - Problem List (1) Bilateral lower leg cellulitis Conclusion/Plan: Patient appears to have bilateral lower extremity edema with erythema, warmth and drainage from bilateral lower extremities. Patient has had cellulitis of bilateral lower extremities in the past and was most recently hospitalized at [facility] in October 2016. The patient has not been taking any antibiotics and this has been getting worse for the last month. The patient is afebrile and does not have any leukocytosis but does appear to have bilateral cellulitis and will require at least 1 dose of IV antibiotics. Plan: Start IV vancomycin Wound care consult Patient will likely need to follow-up at the [facility] clinic for further wound care Pain control (2) Chronic back pain Conclusion/Plan: Patient has a history of chronic back pain and is on extended release and immediate release morphine. The patient states that despite the morphine his pain is never controlled and continues to be uncontrolled in the emergency department. Patient will be continued on his home doses of immediate release and extended release morphine as per his last hospitalization. We will get pharmacy to verify the doses of morphine the morning. Patient will also be given gabapentin for his pain. Qualifiers: Back pain location: back pain in unspecified location (3) Hypertension Conclusion/Plan: Patient has a history of hypertension but does not take any medications as he states he is not following any PCP. The patient's blood pressure and heart rate were elevated on presentation this was thought most likely to be secondary to his pain. After improvement in his pain control patient's blood pressure did improve slightly. Patient may need to be started on a new antihypertensive medication if his blood pressure continues to be elevated. The patient blood pressure will continue to be monitored through his hospitalization. Qualifiers: Hypertension type: essential hypertension Qualified Code(s): I10 - Essential (primary) hypertension (4) COPD (chronic obstructive pulmonary disease) Conclusion/Plan: Patient has a history of COPD and is an active smoker. The patient does have decreased lung sounds and scattered wheezes but does not appear to be in a COPD exacerbation. She will be placed on albuterol nebulizers as needed if he does have any difficulties with his breathing or wheezing while he is hospitalized. Qualifiers: COPD type: emphysema (5) Tobacco abuse Conclusion/Plan: Patient is a history of tobacco abuse and continues to smoke half a pack per day. The patient will be counseled on need to quit smoking and offered a nicotine patch. - Lab Results Lab results reviewed: Yes Fish Bones: 09/06/17 23:00 09/06/17 23:00 Other Lab Results: Laboratory Results WBC 9.0 x10^3/uL (4.8-10.8) 09/06/17 23:00 RBC 4.56 10^6/uL (4.70-6.10) L 09/06/17 23:00 Hgb 11.8 g/dL (14.0-18.0) L 09/06/17 23:00 Hct 37.0 % (42.0-52.0) L 09/06/17 23:00 MCV 81.3 fL (80.0-94.0) 09/06/17 23:00 MCH 25.9 pg (27.0-31.0) L 09/06/17 23:00 MCHC 31.8 g/dL (32.0-36.0) L 09/06/17 23:00 RDW 16.6 % (12.0-15.0) H 09/06/17 23:00 Plt Count 293 10^3/uL (130-450) 09/06/17 23:00 MPV 7.6 fL (7.4-11.4) 09/06/17 23:00 Neut # 6.7 10^3/uL (1.5-6.6) H 09/06/17 23:00 Lymph # 1.4 10^3/uL (1.5-3.5) L 09/06/17 23:00 Gregg # 0.6 10^3/uL (0.0-1.0) 09/06/17 23:00 Eos # 0.3 10^3/uL (0.0-0.7) 09/06/17 23:00 Baso # 0.1 10^3/uL (0.0-0.1) 09/06/17 23:00 Absolute Nucleated RBC 0.00 x10^3/uL 09/06/17 23:00 Nucleated RBC % 0.0 /100WBC 09/06/17 23:00 ESR 38 mm/Hr (0-20) H 09/06/17 23:00 Sodium 137 mmol/L (135-145) 09/06/17 23:00 Potassium 3.9 mmol/L (3.5-5.0) 09/06/17 23:00 Chloride 97 mmol/L (101-111) L 09/06/17 23:00 Carbon Dioxide 32 mmol/L (21-32) 09/06/17 23:00 Anion Gap 8.0 (6-13) 09/06/17 23:00 BUN 13 mg/dL (6-20) 09/06/17 23:00 Creatinine 0.8 mg/dL (0.6-1.2) 09/06/17 23:00 Estimated GFR (MDRD) 97 (>89) 09/06/17 23:00 Glucose 121 mg/dL (70-100) H 09/06/17 23:00 Lactic Acid 1.8 mmol/L (0.5-2.2) 09/06/17 23:00 Calcium 8.4 mg/dL (8.5-10.3) L 09/06/17 23:00 Total Bilirubin 0.3 mg/dL (0.2-1.0) 09/06/17 23:00 AST 16 IU/L (10-42) 09/06/17 23:00 ALT < 10 IU/L (10-60) L 09/06/17 23:00 Alkaline Phosphatase 104 IU/L (42-121) 09/06/17 23:00 C-Reactive Protein 7.5 mg/dL (0-1.0) H 09/06/17 23:00 Total Protein 7.6 g/dL (6.7-8.2) 09/06/17 23:00 Albumin 2.7 g/dL (3.2-5.5) L 09/06/17 23:00 Globulin 4.9 g/dL (2.1-4.2) H 09/06/17 23:00 Albumin/Globulin Ratio 0.6 (1.0-2.2) L 09/06/17 23:00 Lipase 30 U/L (22-51) 09/06/17 23:00 Core Measures - Anticipated LOS I expect patient to be DC'd or transferred within 96 hours.: Yes - DVT/VTE - Prophylaxis VTE/DVT Prophylaxis med ordered at admit?: Yes
[2017-09-07] MEDS ORDERED: ALBUTEROL NEB 2.5 MG/3 ML INH PRN (03:11)
[2017-09-07 06:26] LABS: BASOPHILS # (AUTO) 0.1 10^3/uL (0.0-0.1); EOSINOPHILS # (AUTO) 0.3 10^3/uL (0.0-0.7); EOSINOPHILS % (AUTO) 4.2 %; HGB - HEMOGLOBIN 10.8 g/dL (14.0-18.0); LYMPHOCYTES # (AUTO) 1.2 10^3/uL (1.5-3.5); LYMPHOCYTES % (AUTO) 20.2 %; MEAN CORPUSCULAR HEMOGLOBIN 25.6 pg (27.0-31.0); MEAN CORPUSCULAR HGB CONC 31.4 g/dL (32.0-36.0); MEAN CORPUSCULAR VOLUME 81.5 fL (80.0-94.0); MEAN PLATELET VOLUME 7.6 fL (7.4-11.4); MONOCYTES # (AUTO) 0.6 10^3/uL (0.0-1.0); MONOCYTES % (AUTO) 9.4 %; NEUTROPHILS % (AUTO) 65.2 %; PLT - PLATELET COUNT 240 10^3/uL (130-450); RED BLOOD COUNT 4.21 10^6/uL (4.70-6.10); RED CELL DISTRIBUTION WIDTH 16.6 % (12.0-15.0); WHITE BLOOD COUNT 6.1 x10^3/uL (4.8-10.8)
[2017-09-07 06:42] LABS: CALCIUM 8.1 mg/dL (8.5-10.3); CREATININE 0.9 mg/dL (0.6-1.2); CRP - C-REACTIVE PROTEIN 5.6 mg/dL (0-1.0)
--- NOTE | 2017-09-07 09:03 | ED Physician Documentation ---
ED Addendum - Addendum Addendum: 09/07/17 09:02 chart accessed to address question about IV access - per EMP note plan was for pt to potentially get a PICC this AM
[2017-09-07] MEDS: GABAPENTIN 300 MG CAPSULE PO SCH ×2 (09:16→20:02)
[2017-09-07] MEDS: FERROUS SULFATE 325 MG TABLET PO SCH (09:16)
[2017-09-07] MEDS: MORPHINE ER 60 MG TABLET PO SCH (09:16)
[2017-09-07] MEDS: FAMOTIDINE 20 MG TABLET PO SCH (09:16)
[2017-09-07] MEDS: POLYETHYLENE GLYCOL 3350 17 GM PACKET PO SCH (09:17)
[2017-09-07] MEDS: SACCHAROMYCES BOULARDII 250 MG CAPSULE PO SCH ×2 (09:17→16:53)
[2017-09-07] MEDS: ENOXAPARIN 40 MG/0.4 ML SYRINGE SUBQ SCH (09:17)
[2017-09-07] MEDS ORDERED: PIPERACILLIN/TAZOBACTAM 3.375 GM in SODIUM CHLORIDE 0.9% MINIBAG 100 ML IV SCH (11:00)
[2017-09-07] MEDS: VANCOMYCIN INJ 1 GM in SODIUM CHLORIDE 0.9% 250 ML IV SCH ×2 (11:16→20:02)
[2017-09-07] MEDS: SODIUM CHLORIDE 0.9% 1,000 ML IV SCH (11:16)
[2017-09-07] MEDS: NICOTINE 14 MG PATCH TOP SCH (11:16)
--- NOTE | 2017-09-07 11:31 | XRAY Report ---
FRONTAL CHEST: 09/07/2017 CLINICAL INDICATION: PICC placement. FINDINGS: Frontal view of the chest demonstrates a right arm PICC terminating in the distal superior vena cava. The cardiac silhouette is within normal limits. The lungs are clear. Likely small hiatal hernia is noted. No effusion or pneumothorax. IMPRESSION: RIGHT ARM PICC TERMINATING IN THE DISTAL SUPERIOR VENA CAVA. TD: 09/07/2017 11:02
[2017-09-07] MEDS: PIPERACILLIN/TAZOBACTAM 3.375 GM in SODIUM CHLORIDE 0.9% MINIBAG 100 ML IV SCH ×2 (14:28→19:37)
--- NOTE | 2017-09-07 15:45 | PROVIDER PROGRESS NOTE ---
Subjective - Prog Note Date Prog Note Date: 09/07/17 - Subjective Pt reports feeling: No change Subjective: pt report he had bilateral low extremities infection for couple months but did not seek for medical help. Pt denies fever, chill, cough, CP, SOB. Nurse report pt did not have IV access and very hard to have. I called [facility] team. Mr. Liang did PICC for pt. Thanks! 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 Current Medications - Current Medications Current Medications: Active Medications Acetaminophen (Tylenol) 650 mg PO Q4HR PRN PRN Reason: Pain 1 to 4 Albuterol () 2.5 mg INH RTQ4H PRN PRN Reason: Wheezing Enoxaparin Sodium (Lovenox) 40 mg SUBQ DAILY [facility] Last Admin: 09/07/17 09:17 Dose: 40 mg Famotidine (Pepcid) 20 mg PO DAILY [facility] Last Admin: 09/07/17 09:16 Dose: 20 mg Ferrous Sulfate (Feosol) 325 mg PO DAILY [facility] Last Admin: 09/07/17 09:16 Dose: 325 mg Gabapentin (Neurontin) 300 mg PO BID [facility] Last Admin: 09/07/17 09:16 Dose: 300 mg Vancomycin HCl 1 gm/ Sodium (Chloride) 250 mls @ 167 mls/hr IV Q12H [facility] Last Infusion: 09/07/17 14:07 Dose: Infused Sodium Chloride (Normal Saline 0.9%) 1,000 mls @ 83 mls/hr IV .Q12H3M [facility] Last Admin: 09/07/17 11:16 Dose: 83 mls/hr Piperacillin Sod/Tazobactam (Sod 3.375 gm/ Sodium Chloride) 100 mls @ 200 mls/ hr IV Q6H [facility] Last Infusion: 09/07/17 14:59 Dose: Infused Morphine Sulfate (Ms Ir) 15 mg PO BID PRN PRN Reason: PAIN Last Admin: 09/07/17 12:38 Dose: 15 mg Morphine Sulfate () 30 mg PO QPM [facility] Morphine Sulfate (Morphine Er) 60 mg PO DAILY [facility] Last Admin: 09/07/17 09:16 Dose: 60 mg Nicotine (Nicoderm) 1 patch TOP DAILY [facility] Last Admin: 09/07/17 11:16 Dose: 1 patch Ondansetron HCl (Zofran Inj) 4 mg IVP Q6HR PRN PRN Reason: Nausea / Vomiting Polyethylene Glycol (Miralax) 17 gm PO DAILY [facility] Last Admin: 09/07/17 09:17 Dose: Not Given Prochlorperazine Edisylate (Compazine Inj) 10 mg IVP Q6HR PRN PRN Reason: Nausea / Vomiting Promethazine HCl (Phenergan Inj) 25 mg IM Q6HR PRN PRN Reason: Nausea / Vomiting Saccharomyces Boulardii (Florastor) 250 mg PO BIDWM [facility] Last Admin: 09/07/17 09:17 Dose: 250 mg Sodium Chloride (Normal Saline Flush 0.9%) 10 ml IVP PRN PRN PRN Reason: NEEDED PER PROVIDER ORDERS Sodium Chloride (Normal Saline Flush 0.9%) 10 ml IVP 0100,0900,1700 [facility] Last Admin: 09/07/17 09:17 Dose: Not Given Zolpidem Tartrate (Ambien) 5 mg PO QPM PRN PRN Reason: Insomnia Morphine Ir [Ms Ir] 15 mg PO Q12H PRN 10/30/16 Morphine Sulfate [Morphine Sulfate ER] 30 mg PO QPM 10/30/16 Morphine Sulfate [Morphine Sulfate ER] 60 mg PO DAILY 10/30/16 Albuterol Sulfate [Proair Hfa Inhaler] 2 puffs INH Q4H PRN 09/07/17 Objective - Vital Signs/Intake & Output Reviewed Vital Signs: Yes Vital Signs: Vital Signs x48h Temp Pulse Resp BP Pulse Ox 09/07/17 11:59 37.0 C 76 14 140/84 H 96 Intake & Output: Intake & Output 09/04/17 09/05/17 09/06/17 09/07/17 23:59 23:59 23:59 23:59 Intake Total 620 Balance 620 - Objective General Appearance: positive: No acute distress, Alert. negative: Lethargic Eyes Bilateral: positive: Normal inspection, PERRL, No lid inflammation, Conjunctivae nml ENT: positive: ENT inspection nml, Pharynx nml, No signs of dehydration. negative: Purulent nasal drainage, Pharyngeal erythema, Oral lesions Neck: positive: Nml inspection, Thyroid nml, No JVD, Trachea midline. negative : Thyromegaly, Lymphadenopathy (R), Lymphadenopathy (L), Stiff neck, Swelling/ bruising, Tracheal deviation Respiratory: positive: Chest non-tender, No respiratory distress, Breath sounds nml. negative: Wheezes, Rales, Rhonchi Cardiovascular: positive: Regular rate & rhythm, No murmur, No gallop. negative : Irregularly irregular, Extrasystoles, Tachycardia, Bradycardia, JVD present, Systolic murmur, Diastolic murmur Peripheral Pulses: 2+ Radial (R), 2+ Radial (L), 2+ Dorsalis pedis (R), 2+ Dorsalis pedis (L) Abdomen: positive: Non-tender, No organomegaly, Nml bowel sounds, No distention. negative: Tenderness, Guarding, Rebound Back: positive: Nml inspection. negative: CVA tenderness (R), CVA tenderness (L ) Skin: positive: Warm, Dry, Laceration (cm). negative: Cyanosis, Diaphoresis, Pallor Extremities: positive: Full ROM, Pedal edema. negative: Calf tenderness Neurologic/Psychiatric: positive: Oriented x3, Sensation nml. negative: Weakness, Sensory loss, Facial droop, Slurred/abnml speech, Depressed mood/ affect - Lab Results Fish Bones: 09/07/17 06:07 09/07/17 06:07 ABX Reporting Has patient been on IV antibiotics over the past 48 hours?: Yes Assessment/Plan - Problem List (1) Cellulitis Impression: (1) Bilateral lower leg cellulitis Conclusion/Plan: pt had recurrence of leg cellulitis. Pt report he had the infection for couple of months but did not seek medical attention. small is very bad, concerns pseudomonas order PICC line since pt is difficult to have peripheral IV access, need quit time to treat his severe infection. start Zosyn continue vancomycin wound culture follow blood culture follow wound care Patient appears to have bilateral lower extremity edema with erythema, warmth and drainage from bilateral lower extremities. Patient has had cellulitis of bilateral lower extremities in the past and was most recently hospitalized at [facility] in October 2016. The patient has not been taking any antibiotics and this has been getting worse for the last month. The patient is afebrile and does not have any leukocytosis but does appear to have bilateral cellulitis and will require at least 1 dose of IV antibiotics. Plan: Start IV vancomycin Wound care consult Patient will likely need to follow-up at the [facility] for further wound care Pain control (2) Chronic back pain Conclusion/Plan: stable, continue pain control Patient has a history of chronic back pain and is on extended release and immediate release morphine. The patient states that despite the morphine his pain is never controlled and continues to be uncontrolled in the emergency department. Patient will be continued on his home doses of immediate release and extended release morphine as per his last hospitalization. We will get pharmacy to verify the doses of morphine the morning. Patient will also be given gabapentin for his pain. (3) Hypertension Conclusion/Plan: stable, continue home meds Patient has a history of hypertension but does not take any medications as he states he is not following any PCP. The patient's blood pressure and heart rate were elevated on presentation this was thought most likely to be secondary to his pain. After improvement in his pain control patient's blood pressure did improve slightly. Patient may need to be started on a new antihypertensive medication if his blood pressure continues to be elevated. The patient blood pressure will continue to be monitored through his hospitalization. (4) COPD (chronic obstructive pulmonary disease) Conclusion/Plan: stable, continue home meds Patient has a history of COPD and is an active smoker. The patient does have decreased lung sounds and scattered wheezes but does not appear to be in a COPD exacerbation. She will be placed on albuterol nebulizers as needed if he does have any difficulties with his breathing or wheezing while he is hospitalized. (5) Tobacco abuse Conclusion/Plan: add nicotine patch Patient is a history of tobacco abuse and continues to smoke half a pack per day. The patient will be counseled on need to quit smoking and offered a nicotine patch. Qualifiers: Site of cellulitis: extremity Site of cellulitis of extremity: lower extremity Laterality: unspecified laterality Qualified Code(s): L03.119 - Cellulitis of unspecified part of limb
[2017-09-07] MEDS: ZINC SULFATE 220 MG CAPSULE PO SCH (16:53)
[2017-09-07] MEDS: ASCORBIC ACID CHEW 500 MG TABLET PO SCH (16:53)
[2017-09-07 17:26] LABS: MUDS CUTOFF CONCENTRATIONS CUTOFF CONC BELOW:
[2017-09-07 17:42] LABS: AMPHETAMINE SCREEN,URINE POSITIVE (NEGATIVE); BENZODIAZEPINES SCREEN, URINE NEGATIVE (NEGATIVE); COCAINE SCREEN URINE NEGATIVE (NEGATIVE); METHADONE SCREEN, URINE NEGATIVE (NEGATIVE); METHAMPHETAMINES SCREEN, URINE POSITIVE (NEGATIVE); OPIATE SCREEN, URINE POSITIVE (NEGATIVE); OXYCODONE SCREEN, URINE NEGATIVE (NEGATIVE); TRICYCLIC ANTIDEPRESSANT,URINE NEGATIVE (NEGATIVE)
[2017-09-07 17:43] LABS: PROPOXYPHENE SCREEN, URINE NEGATIVE (NEGATIVE)
[2017-09-07] MEDS: MORPHINE ER 15 MG TABLET PO SCH (20:02)
[2017-09-07] MEDS: SODIUM CHLORIDE FLUSH 0.9% 10 ML SYRINGE IVP PRN (20:03)
[2017-09-08] MEDS: MORPHINE IR 15 MG TABLET PO PRN ×2 (00:57→12:16)
[2017-09-08] MEDS: SODIUM CHLORIDE FLUSH 0.9% 10 ML SYRINGE IVP SCH ×3 (00:58→17:10)
[2017-09-08] MEDS: PIPERACILLIN/TAZOBACTAM 3.375 GM in SODIUM CHLORIDE 0.9% MINIBAG 100 ML IV SCH ×4 (01:32→19:10)
[2017-09-08] MEDS: SODIUM CHLORIDE 0.9% 1,000 ML IV SCH ×2 (03:52→18:28)
[2017-09-08] MEDS: SODIUM CHLORIDE FLUSH 0.9% 10 ML SYRINGE IVP PRN ×2 (05:22→21:04)
[2017-09-08 06:27] LABS: BASOPHILS % (AUTO) 0.7 %; EOSINOPHILS # (AUTO) 0.2 10^3/uL (0.0-0.7); EOSINOPHILS % (AUTO) 3.1 %; HGB - HEMOGLOBIN 10.4 g/dL (14.0-18.0); LYMPHOCYTES # (AUTO) 1.1 10^3/uL (1.5-3.5); LYMPHOCYTES % (AUTO) 16.6 %; MEAN CORPUSCULAR HEMOGLOBIN 25.8 pg (27.0-31.0); MEAN CORPUSCULAR HGB CONC 31.3 g/dL (32.0-36.0); MEAN CORPUSCULAR VOLUME 82.2 fL (80.0-94.0); MEAN PLATELET VOLUME 7.4 fL (7.4-11.4); MONOCYTES # (AUTO) 0.4 10^3/uL (0.0-1.0); MONOCYTES % (AUTO) 6.2 %; NEUTROPHILS # (AUTO) 4.6 10^3/uL (1.5-6.6); NEUTROPHILS % (AUTO) 73.4 %; PLT - PLATELET COUNT 238 10^3/uL (130-450); RED BLOOD COUNT 4.04 10^6/uL (4.70-6.10); RED CELL DISTRIBUTION WIDTH 16.5 % (12.0-15.0); WHITE BLOOD COUNT 6.3 x10^3/uL (4.8-10.8)
[2017-09-08 06:43] LABS: CALCIUM 7.8 mg/dL (8.5-10.3); CREATININE 0.9 mg/dL (0.6-1.2); CRP - C-REACTIVE PROTEIN 2.9 mg/dL (0-1.0); MAGNESIUM 1.9 mg/dL (1.7-2.8)
[2017-09-08] MEDS ORDERED: POTASSIUM CHLORIDE 20 MEQ TABLET PO SCH (07:46)
[2017-09-08] MEDS: MORPHINE ER 60 MG TABLET PO SCH (08:21)
[2017-09-08] MEDS: SACCHAROMYCES BOULARDII 250 MG CAPSULE PO SCH ×2 (08:22→17:10)
[2017-09-08] MEDS: ASCORBIC ACID CHEW 500 MG TABLET PO SCH (08:23)
[2017-09-08] MEDS: ZINC SULFATE 220 MG CAPSULE PO SCH (08:23)
[2017-09-08] MEDS: NICOTINE 14 MG PATCH TOP SCH ×2 (08:23→08:42)
[2017-09-08] MEDS: GABAPENTIN 300 MG CAPSULE PO SCH ×2 (08:23→20:04)
[2017-09-08] MEDS: CALCIUM CITRATE 250 MG TABLET PO SCH ×2 (08:23→08:25)
[2017-09-08] MEDS: FAMOTIDINE 20 MG TABLET PO SCH (08:23)
[2017-09-08] MEDS: FERROUS SULFATE 325 MG TABLET PO SCH (08:23)
[2017-09-08] MEDS: ENOXAPARIN 40 MG/0.4 ML SYRINGE SUBQ SCH (08:24)
[2017-09-08] MEDS: POLYETHYLENE GLYCOL 3350 17 GM PACKET PO SCH (08:24)
[2017-09-08] MEDS: VANCOMYCIN INJ 1 GM in SODIUM CHLORIDE 0.9% 250 ML IV SCH ×2 (10:55→21:00)
--- NOTE | 2017-09-08 12:07 | PROVIDER PROGRESS NOTE ---
Subjective - Prog Note Date Prog Note Date: 09/08/17 - Subjective Pt reports feeling: Improved Subjective: Pt report he did feel better after we treated him. he denies fever, chill, CP, SOB. Pt has positive of Meth/Amph in UDS. Interested, pt report he did not know. Current Medications - Current Medications Current Medications: Active Medications Acetaminophen (Tylenol) 650 mg PO Q4HR PRN PRN Reason: Pain 1 to 4 Albuterol () 2.5 mg INH RTQ4H PRN PRN Reason: Wheezing Ascorbic Acid (Vitamin C) 500 mg PO DAILY [facility] Last Admin: 09/08/17 08:23 Dose: 500 mg Calcium Citrate () 250 mg PO DAILY [facility] Last Admin: 09/08/17 08:25 Dose: Not Given Enoxaparin Sodium (Lovenox) 40 mg SUBQ DAILY [facility] Last Admin: 09/08/17 08:24 Dose: 40 mg Famotidine (Pepcid) 20 mg PO DAILY [facility] Last Admin: 09/08/17 08:23 Dose: 20 mg Ferrous Sulfate (Feosol) 325 mg PO DAILY [facility] Last Admin: 09/08/17 08:23 Dose: 325 mg Gabapentin (Neurontin) 300 mg PO BID [facility] Last Admin: 09/08/17 08:23 Dose: 300 mg Vancomycin HCl 1 gm/ Sodium (Chloride) 250 mls @ 167 mls/hr IV Q12H [facility] Last Infusion: 09/08/17 13:55 Dose: Infused Sodium Chloride (Normal Saline 0.9%) 1,000 mls @ 83 mls/hr IV .Q12H3M [facility] Last Admin: 09/08/17 03:52 Dose: 83 mls/hr Piperacillin Sod/Tazobactam (Sod 3.375 gm/ Sodium Chloride) 100 mls @ 200 mls/ hr IV Q6H [facility] Last Infusion: 09/08/17 15:02 Dose: Infused Morphine Sulfate (Ms Ir) 15 mg PO BID PRN PRN Reason: PAIN Last Admin: 09/08/17 12:16 Dose: 15 mg Morphine Sulfate () 30 mg PO QPM [facility] Last Admin: 09/07/17 20:02 Dose: 30 mg Morphine Sulfate (Morphine Er) 60 mg PO DAILY [facility] Last Admin: 09/08/17 08:21 Dose: 60 mg Nicotine (Nicoderm) 1 patch TOP DAILY [facility] Last Admin: 09/08/17 08:42 Dose: 1 patch Ondansetron HCl (Zofran Inj) 4 mg IVP Q6HR PRN PRN Reason: Nausea / Vomiting Polyethylene Glycol (Miralax) 17 gm PO DAILY [facility] Last Admin: 09/08/17 08:24 Dose: 17 gm Prochlorperazine Edisylate (Compazine Inj) 10 mg IVP Q6HR PRN PRN Reason: Nausea / Vomiting Promethazine HCl (Phenergan Inj) 25 mg IM Q6HR PRN PRN Reason: Nausea / Vomiting Saccharomyces Boulardii (Florastor) 250 mg PO BIDWM [facility] Last Admin: 09/08/17 08:22 Dose: 250 mg Sodium Chloride (Normal Saline Flush 0.9%) 10 ml IVP PRN PRN PRN Reason: NEEDED PER PROVIDER ORDERS Last Admin: 09/08/17 05:22 Dose: 30 ml Sodium Chloride (Normal Saline Flush 0.9%) 10 ml IVP 0100,0900,1700 [facility] Last Admin: 09/08/17 08:24 Dose: Not Given Zinc Sulfate () 220 mg PO DAILY [facility] Last Admin: 09/08/17 08:23 Dose: 220 mg Zolpidem Tartrate (Ambien) 5 mg PO QPM PRN PRN Reason: Insomnia Morphine Ir [Ms Ir] 15 mg PO Q12H PRN 10/30/16 Morphine Sulfate [Morphine Sulfate ER] 30 mg PO QPM 10/30/16 Morphine Sulfate [Morphine Sulfate ER] 60 mg PO DAILY 10/30/16 Albuterol Sulfate [Proair Hfa Inhaler] 2 puffs INH Q4H PRN 09/07/17 Objective - Vital Signs/Intake & Output Reviewed Vital Signs: Yes Vital Signs: Vital Signs x48h Temp Pulse Pulse Resp BP Pulse Ox 09/08/17 08:37 36.5 C 65 16 154/70 H 98 09/08/17 08:30 60 18 Intake & Output: Intake & Output 09/05/17 09/06/17 09/07/17 09/08/17 23:59 23:59 23:59 23:59 Intake Total 2440 1020 Output Total 950 1300 Balance 1490 -280 - Objective General Appearance: positive: No acute distress, Alert. negative: Lethargic Eyes Bilateral: positive: Normal inspection, PERRL, No lid inflammation, Conjunctivae nml ENT: positive: ENT inspection nml, Pharynx nml, No signs of dehydration. negative: Purulent nasal drainage, Pharyngeal erythema, Oral lesions Neck: positive: Nml inspection, Thyroid nml, No JVD, Trachea midline. negative : Thyromegaly, Lymphadenopathy (R), Lymphadenopathy (L), Stiff neck, Carotid bruit, Swelling/bruising, Tracheal deviation Respiratory: positive: Chest non-tender, No respiratory distress, Breath sounds nml. negative: Wheezes, Rales, Rhonchi Cardiovascular: positive: Regular rate & rhythm, No murmur, No gallop. negative : Irregularly irregular, Extrasystoles, Tachycardia, Bradycardia, JVD present, Systolic murmur, Diastolic murmur Peripheral Pulses: 2+ Radial (R), 2+ Radial (L), 2+ Dorsalis pedis (R), 2+ Dorsalis pedis (L) Abdomen: positive: Non-tender, No organomegaly, Nml bowel sounds, No distention. negative: Tenderness, Guarding, Rebound Back: positive: Nml inspection. negative: CVA tenderness (R), CVA tenderness (L ) Skin: positive: Color nml, No rash, Warm, Dry, Skin rash. negative: Cyanosis, Diaphoresis, Pallor Extremities: positive: Non-tender. negative: Calf tenderness, Joint swelling, Melchor's sign/cords Neurologic/Psychiatric: positive: Oriented x3, Sensation nml, Mood/affect nml, Weakness. negative: Sensory loss, Facial droop, Slurred/abnml speech, Depressed mood/affect - Lab Results Fish Bones: 09/08/17 05:28 09/08/17 05:28 Other Labs: Lab Results x24hrs 09/08/17 09/08/17 09/08/17 Range/Units 05:28 05:28 05:28 WBC 6.3 (4.8-10.8) x10^3/uL RBC 4.04 L (4.70-6.10) 10^6/uL Hgb 10.4 L (14.0-18.0) g/dL Hct 33.2 L (42.0-52.0) % MCV 82.2 (80.0-94.0) fL MCH 25.8 L (27.0-31.0) pg MCHC 31.3 L (32.0-36.0) g/dL RDW 16.5 H (12.0-15.0) % Plt Count 238 (130-450) 10^3/uL MPV 7.4 (7.4-11.4) fL Neut # 4.6 (1.5-6.6) 10^3/uL Lymph # 1.1 L (1.5-3.5) 10^3/uL [place] # 0.4 (0.0-1.0) 10^3/uL Eos # 0.2 (0.0-0.7) 10^3/uL Baso # 0.0 (0.0-0.1) 10^3/uL Absolute Nucleated RBC 0.00 x10^3/uL Nucleated RBC % 0.0 /100WBC ESR 33 H (0-20) mm/Hr Sodium 140 (135-145) mmol/L Potassium 3.4 L (3.5-5.0) mmol/L Chloride 107 (101-111) mmol/L Carbon Dioxide 28 (21-32) mmol/L Anion Gap 5.0 L (6-13) BUN 14 (6-20) mg/dL Creatinine 0.9 (0.6-1.2) mg/dL Estimated GFR (MDRD) 85 L (>89) Glucose 115 H (70-100) mg/dL Calcium 7.8 L (8.5-10.3) mg/dL Magnesium 1.9 (1.7-2.8) mg/dL C-Reactive Protein 2.9 H (0-1.0) mg/dL Urine Opiates Screen (NEGATIVE) Ur Oxycodone Screen (NEGATIVE) Urine Methadone Screen (NEGATIVE) Ur Propoxyphene Screen (NEGATIVE) Ur Barbiturates Screen (NEGATIVE) Ur Tricyclics Screen (NEGATIVE) Ur Phencyclidine Scrn (NEGATIVE) Ur Amphetamine Screen (NEGATIVE) U Methamphetamines Scrn (NEGATIVE) U Benzodiazepines Scrn (NEGATIVE) Urine Cocaine Screen (NEGATIVE) U Cannabinoids Screen (NEGATIVE) 09/07/17 Range/Units 17:00 WBC (4.8-10.8) x10^3/uL RBC (4.70-6.10) 10^6/uL Hgb (14.0-18.0) g/dL Hct (42.0-52.0) % MCV (80.0-94.0) fL MCH (27.0-31.0) pg MCHC (32.0-36.0) g/dL RDW (12.0-15.0) % Plt Count (130-450) 10^3/uL MPV (7.4-11.4) fL Neut # (1.5-6.6) 10^3/uL Lymph # (1.5-3.5) 10^3/uL [place] # (0.0-1.0) 10^3/uL Eos # (0.0-0.7) 10^3/uL Baso # (0.0-0.1) 10^3/uL Absolute Nucleated RBC x10^3/uL Nucleated RBC % /100WBC ESR (0-20) mm/Hr Sodium (135-145) mmol/L Potassium (3.5-5.0) mmol/L Chloride (101-111) mmol/L Carbon Dioxide (21-32) mmol/L Anion Gap (6-13) BUN (6-20) mg/dL Creatinine (0.6-1.2) mg/dL Estimated GFR (MDRD) (>89) Glucose (70-100) mg/dL Calcium (8.5-10.3) mg/dL Magnesium (1.7-2.8) mg/dL C-Reactive Protein (0-1.0) mg/dL Urine Opiates Screen POSITIVE H (NEGATIVE) Ur Oxycodone Screen NEGATIVE (NEGATIVE) Urine Methadone Screen NEGATIVE (NEGATIVE) Ur Propoxyphene Screen NEGATIVE (NEGATIVE) Ur Barbiturates Screen NEGATIVE (NEGATIVE) Ur Tricyclics Screen NEGATIVE (NEGATIVE) Ur Phencyclidine Scrn NEGATIVE (NEGATIVE) Ur Amphetamine Screen POSITIVE H (NEGATIVE) U Methamphetamines Scrn POSITIVE H (NEGATIVE) U Benzodiazepines Scrn NEGATIVE (NEGATIVE) Urine Cocaine Screen NEGATIVE (NEGATIVE) U Cannabinoids Screen NEGATIVE (NEGATIVE) ABX Reporting Has patient been on IV antibiotics over the past 48 hours?: Yes Assessment/Plan - Problem List (1) Cellulitis Impression: (1) Bilateral lower leg cellulitis Conclusion/Plan: pt feel better. significant reduced drainage. continue Zosyn continue vancomycin wound culture follow blood culture follow wound care dressing change daily pt had recurrence of leg cellulitis. Pt report he had the infection for couple of months but did not seek medical attention. small is very bad, concerns pseudomonas order PICC line since pt is difficult to have peripheral IV access, need quit time to treat his severe infection. start Zosyn continue vancomycin wound culture follow blood culture follow wound care Patient appears to have bilateral lower extremity edema with erythema, warmth and drainage from bilateral lower extremities. Patient has had cellulitis of bilateral lower extremities in the past and was most recently hospitalized at [facility] in October 2016. The patient has not been taking any antibiotics and this has been getting worse for the last month. The patient is afebrile and does not have any leukocytosis but does appear to have bilateral cellulitis and will require at least 1 dose of IV antibiotics. Plan: Start IV vancomycin Wound care consult Patient will likely need to follow-up at the [facility] clinic for further wound care Pain control (2) Chronic back pain Conclusion/Plan: stable, continue pain control Patient has a history of chronic back pain and is on extended release and immediate release morphine. The patient states that despite the morphine his pain is never controlled and continues to be uncontrolled in the emergency department. Patient will be continued on his home doses of immediate release and extended release morphine as per his last hospitalization. We will get pharmacy to verify the doses of morphine the morning. Patient will also be given gabapentin for his pain. (3) Hypertension Conclusion/Plan: stable, continue home meds stable, continue home meds Patient has a history of hypertension but does not take any medications as he states he is not following any PCP. The patient's blood pressure and heart rate were elevated on presentation this was thought most likely to be secondary to his pain. After improvement in his pain control patient's blood pressure did improve slightly. Patient may need to be started on a new antihypertensive medication if his blood pressure continues to be elevated. The patient blood pressure will continue to be monitored through his hospitalization. (4) COPD (chronic obstructive pulmonary disease) Conclusion/Plan: stable, continue home meds Patient has a history of COPD and is an active smoker. The patient does have decreased lung sounds and scattered wheezes but does not appear to be in a COPD exacerbation. She will be placed on albuterol nebulizers as needed if he does have any difficulties with his breathing or wheezing while he is hospitalized. (5) Tobacco abuse nicotin patch Qualifiers: Site of cellulitis: extremity Site of cellulitis of extremity: lower extremity Laterality: unspecified laterality Qualified Code(s): L03.119 - Cellulitis of unspecified part of limb
[2017-09-08] MEDS: MORPHINE ER 15 MG TABLET PO SCH (20:04)
[2017-09-08 20:35] LABS: VANCOMYCIN,TROUGH 14.2 ug/mL (10.0-20.0)
[2017-09-09] MEDS: PIPERACILLIN/TAZOBACTAM 3.375 GM in SODIUM CHLORIDE 0.9% MINIBAG 100 ML IV SCH ×4 (01:58→19:29)
[2017-09-09] MEDS: MORPHINE IR 15 MG TABLET PO PRN ×2 (02:22→18:01)
[2017-09-09] MEDS: SODIUM CHLORIDE FLUSH 0.9% 10 ML SYRINGE IVP SCH ×3 (03:20→17:57)
[2017-09-09] MEDS ORDERED: SODIUM CHLORIDE FLUSH 0.9% 10 ML SYRINGE IVP PRN (05:40)
[2017-09-09] MEDS: SODIUM CHLORIDE FLUSH 0.9% 10 ML SYRINGE IVP PRN ×2 (05:50→05:59)
[2017-09-09 06:23] LABS: BASOPHILS # (AUTO) 0.1 10^3/uL (0.0-0.1); BASOPHILS % (AUTO) 0.9 %; EOSINOPHILS # (AUTO) 0.3 10^3/uL (0.0-0.7); EOSINOPHILS % (AUTO) 4.7 %; HGB - HEMOGLOBIN 10.9 g/dL (14.0-18.0); LYMPHOCYTES # (AUTO) 1.4 10^3/uL (1.5-3.5); MEAN CORPUSCULAR HEMOGLOBIN 25.7 pg (27.0-31.0); MEAN CORPUSCULAR HGB CONC 31.3 g/dL (32.0-36.0); MEAN CORPUSCULAR VOLUME 82.1 fL (80.0-94.0); MEAN PLATELET VOLUME 7.1 fL (7.4-11.4); MONOCYTES # (AUTO) 0.4 10^3/uL (0.0-1.0); MONOCYTES % (AUTO) 5.3 %; NEUTROPHILS # (AUTO) 4.5 10^3/uL (1.5-6.6); NEUTROPHILS % (AUTO) 68.1 %; PLT - PLATELET COUNT 227 10^3/uL (130-450); RED BLOOD COUNT 4.23 10^6/uL (4.70-6.10); RED CELL DISTRIBUTION WIDTH 16.4 % (12.0-15.0); WHITE BLOOD COUNT 6.6 x10^3/uL (4.8-10.8)
[2017-09-09 06:47] LABS: CREATININE 0.8 mg/dL (0.6-1.2); CRP - C-REACTIVE PROTEIN 1.1 mg/dL (0-1.0)
[2017-09-09] MEDS: SODIUM CHLORIDE 0.9% 1,000 ML IV SCH ×2 (08:56→10:04)
[2017-09-09] MEDS: GABAPENTIN 300 MG CAPSULE PO SCH ×2 (08:58→20:58)
[2017-09-09] MEDS: ASCORBIC ACID CHEW 500 MG TABLET PO SCH (08:58)
[2017-09-09] MEDS: SACCHAROMYCES BOULARDII 250 MG CAPSULE PO SCH ×2 (08:58→17:56)
[2017-09-09] MEDS: FERROUS SULFATE 325 MG TABLET PO SCH (09:00)
[2017-09-09] MEDS: FAMOTIDINE 20 MG TABLET PO SCH (09:00)
[2017-09-09] MEDS: MORPHINE ER 60 MG TABLET PO SCH (09:00)
[2017-09-09] MEDS: NICOTINE 14 MG PATCH TOP SCH (09:02)
[2017-09-09] MEDS: ENOXAPARIN 40 MG/0.4 ML SYRINGE SUBQ SCH (09:02)
[2017-09-09] MEDS: CALCIUM CITRATE 250 MG TABLET PO SCH (09:12)
[2017-09-09] MEDS: ZINC SULFATE 220 MG CAPSULE PO SCH (09:12)
[2017-09-09] MEDS: POLYETHYLENE GLYCOL 3350 17 GM PACKET PO SCH (09:18)
[2017-09-09] MEDS: VANCOMYCIN INJ 1 GM in SODIUM CHLORIDE 0.9% 250 ML IV SCH ×2 (10:01→21:04)
[2017-09-09] MEDS: KETOROLAC 15 MG/ML VIAL IVP PRN ×2 (12:30→19:29)
--- NOTE | 2017-09-09 14:04 | PROVIDER PROGRESS NOTE ---
Subjective - Prog Note Date Prog Note Date: 09/09/17 - Subjective Pt reports feeling: No change Subjective: pt report he still has some pain. Pt has chronic pain issue, seeked more pain meds in the previous admission, which leads to his SBO. pt denies fever, chill chest pain. Current Medications - Current Medications Current Medications: Active Medications Acetaminophen (Tylenol) 650 mg PO Q4HR PRN PRN Reason: Pain 1 to 4 Albuterol () 2.5 mg INH RTQ4H PRN PRN Reason: Wheezing Ascorbic Acid (Vitamin C) 500 mg PO DAILY [facility] Last Admin: 09/09/17 08:58 Dose: 500 mg Calcium Citrate () 250 mg PO DAILY [facility] Last Admin: 09/09/17 09:12 Dose: 250 mg Enoxaparin Sodium (Lovenox) 40 mg SUBQ DAILY [facility] Last Admin: 09/09/17 09:02 Dose: 40 mg Famotidine (Pepcid) 20 mg PO DAILY [facility] Last Admin: 09/09/17 09:00 Dose: 20 mg Ferrous Sulfate (Feosol) 325 mg PO DAILY [facility] Last Admin: 09/09/17 09:00 Dose: 325 mg Gabapentin (Neurontin) 600 mg PO BID [facility] Vancomycin HCl 1 gm/ Sodium (Chloride) 250 mls @ 167 mls/hr IV Q12H [facility] Last Infusion: 09/09/17 11:31 Dose: Infused Sodium Chloride (Normal Saline 0.9%) 1,000 mls @ 83 mls/hr IV .Q12H3M [facility] Last Admin: 09/09/17 10:04 Dose: Not Given Piperacillin Sod/Tazobactam (Sod 3.375 gm/ Sodium Chloride) 100 mls @ 200 mls/ hr IV Q6H [facility] Last Admin: 09/09/17 13:53 Dose: 200 mls/hr Ketorolac Tromethamine (Toradol Inj) 15 mg IVP Q6HR PRN PRN Reason: PAIN Stop: 09/14/17 11:18 Last Admin: 09/09/17 12:30 Dose: 15 mg Morphine Sulfate (Ms Ir) 15 mg PO BID PRN PRN Reason: PAIN Last Admin: 09/09/17 02:22 Dose: 15 mg Morphine Sulfate () 30 mg PO QPM [facility] Last Admin: 09/08/17 20:04 Dose: 30 mg Morphine Sulfate (Morphine Er) 60 mg PO DAILY [facility] Last Admin: 09/09/17 09:00 Dose: 60 mg Nicotine (Nicoderm) 1 patch TOP DAILY [facility] Last Admin: 09/09/17 09:02 Dose: 1 patch Ondansetron HCl (Zofran Inj) 4 mg IVP Q6HR PRN PRN Reason: Nausea / Vomiting Polyethylene Glycol (Miralax) 17 gm PO DAILY [facility] Last Admin: 09/09/17 09:18 Dose: 17 gm Prochlorperazine Edisylate (Compazine Inj) 10 mg IVP Q6HR PRN PRN Reason: Nausea / Vomiting Promethazine HCl (Phenergan Inj) 25 mg IM Q6HR PRN PRN Reason: Nausea / Vomiting Saccharomyces Boulardii (Florastor) 250 mg PO BIDWM [facility] Last Admin: 09/09/17 08:58 Dose: 250 mg Sodium Chloride (Normal Saline Flush 0.9%) 10 ml IVP PRN PRN PRN Reason: NEEDED PER PROVIDER ORDERS Last Admin: 09/09/17 05:59 Dose: 10 ml Sodium Chloride (Normal Saline Flush 0.9%) 10 ml IVP 0100,0900,1700 [facility] Last Admin: 09/09/17 09:04 Dose: Not Given Sodium Chloride (Normal Saline Flush 0.9%) 20 ml IVP PRN PRN PRN Reason: After Blood Draw Zinc Sulfate () 220 mg PO DAILY [facility] Last Admin: 09/09/17 09:12 Dose: 220 mg Zolpidem Tartrate (Ambien) 5 mg PO QPM PRN PRN Reason: Insomnia Morphine Ir [Ms Ir] 15 mg PO Q12H PRN 10/30/16 Morphine Sulfate [Morphine Sulfate ER] 30 mg PO QPM 10/30/16 Morphine Sulfate [Morphine Sulfate ER] 60 mg PO DAILY 10/30/16 Albuterol Sulfate [Proair Hfa Inhaler] 2 puffs INH Q4H PRN 09/07/17 Objective - Vital Signs/Intake & Output Reviewed Vital Signs: Yes Vital Signs: Vital Signs x48h Temp Pulse Pulse Resp BP Pulse Ox 09/09/17 10:50 60 15 09/09/17 08:57 36.5 C 59 L 16 157/91 H 97 Intake & Output: Intake & Output 05/09/07/17 09/08/17 09/09/17 23:59 23:59 23:59 23:59 Intake Total 2440 3961 1999 Output Total 950 7159 3375 Balance 1490 1461 -1375 - Objective General Appearance: positive: Alert. negative: Lethargic Eyes Bilateral: positive: Normal inspection, PERRL, No lid inflammation, Conjunctivae nml ENT: positive: ENT inspection nml, Pharynx nml, No signs of dehydration. negative: Purulent nasal drainage, Pharyngeal erythema, Oral lesions Neck: positive: Nml inspection, Thyroid nml, No JVD, Trachea midline. negative : Thyromegaly, Lymphadenopathy (R), Lymphadenopathy (L), Stiff neck, Carotid bruit, Swelling/bruising, Tracheal deviation Respiratory: positive: Chest non-tender, No respiratory distress, Breath sounds nml. negative: Wheezes, Rales, Rhonchi Cardiovascular: positive: Regular rate & rhythm, No murmur, No gallop. negative : Irregularly irregular, Extrasystoles, Tachycardia, Bradycardia, Systolic murmur, Diastolic murmur Peripheral Pulses: 2+ Radial (R), 2+ Radial (L), 2+ Dorsalis pedis (R), 2+ Dorsalis pedis (L) Abdomen: positive: Non-tender, No organomegaly, Nml bowel sounds, No distention. negative: Tenderness, Guarding, Rebound Back: positive: Nml inspection. negative: CVA tenderness (R), CVA tenderness (L ) Skin: positive: Warm, Dry. negative: Cyanosis, Diaphoresis, Pallor Extremities: positive: Non-tender, Full ROM, Nml appearance. negative: Calf tenderness, Joint swelling, Melchor's sign/cords Neurologic/Psychiatric: positive: Oriented x3, Motor nml, Sensation nml. negative: Facial droop, Slurred/abnml speech, Depressed mood/affect - Lab Results Fish Bones: 09/09/17 05:55 09/09/17 05:55 Other Labs: Lab Results x24hrs 09/09/17 09/09/17 09/09/17 Range/Units 05:55 05:55 05:55 WBC 6.6 (4.8-10.8) x10^3/uL RBC 4.23 L (4.70-6.10) 10^6/uL Hgb 10.9 L (14.0-18.0) g/dL Hct 34.7 L (42.0-52.0) % MCV 82.1 (80.0-94.0) fL MCH 25.7 L (27.0-31.0) pg MCHC 31.3 L (32.0-36.0) g/dL RDW 16.4 H (12.0-15.0) % Plt Count 227 (130-450) 10^3/uL MPV 7.1 L (7.4-11.4) fL Neut # 4.5 (1.5-6.6) 10^3/uL Lymph # 1.4 L (1.5-3.5) 10^3/uL [place] # 0.4 (0.0-1.0) 10^3/uL Eos # 0.3 (0.0-0.7) 10^3/uL Baso # 0.1 (0.0-0.1) 10^3/uL Absolute Nucleated RBC 0.00 x10^3/uL Nucleated RBC % 0.1 /100WBC ESR 32 H (0-20) mm/Hr Sodium 141 (135-145) mmol/L Potassium 3.7 (3.5-5.0) mmol/L Chloride 107 (101-111) mmol/L Carbon Dioxide 28 (21-32) mmol/L Anion Gap 6.0 (6-13) BUN 10 (6-20) mg/dL Creatinine 0.8 (0.6-1.2) mg/dL Estimated GFR (MDRD) 97 (>89) Glucose 93 (70-100) mg/dL Calcium 8.0 L (8.5-10.3) mg/dL C-Reactive Protein 1.1 H (0-1.0) mg/dL Last Dose Date Last Dose Time Vancomycin Trough (10.0-20.0) ug/mL 09/08/17 Range/Units 20:18 WBC (4.8-10.8) x10^3/uL RBC (4.70-6.10) 10^6/uL Hgb (14.0-18.0) g/dL Hct (42.0-52.0) % MCV (80.0-94.0) fL MCH (27.0-31.0) pg MCHC (32.0-36.0) g/dL RDW (12.0-15.0) % Plt Count (130-450) 10^3/uL MPV (7.4-11.4) fL Neut # (1.5-6.6) 10^3/uL Lymph # (1.5-3.5) 10^3/uL [place] # (0.0-1.0) 10^3/uL Eos # (0.0-0.7) 10^3/uL Baso # (0.0-0.1) 10^3/uL Absolute Nucleated RBC x10^3/uL Nucleated RBC % /100WBC ESR (0-20) mm/Hr Sodium (135-145) mmol/L Potassium (3.5-5.0) mmol/L Chloride (101-111) mmol/L Carbon Dioxide (21-32) mmol/L Anion Gap (6-13) BUN (6-20) mg/dL Creatinine (0.6-1.2) mg/dL Estimated GFR (MDRD) (>89) Glucose (70-100) mg/dL Calcium (8.5-10.3) mg/dL C-Reactive Protein (0-1.0) mg/dL Last Dose Date UNKNOWN Last Dose Time UNKNOWN Vancomycin Trough 14.2 (10.0-20.0) ug/mL ABX Reporting Has patient been on IV antibiotics over the past 48 hours?: Yes Assessment/Plan - Problem List (1) Cellulitis Impression: Conclusion/Plan: drainage is significant reduced, odor is significantly reduced continue Zosyn continue vancomycin wound culture follow blood culture follow wound care dressing change daily pt feel better. significant reduced drainage. continue Zosyn continue vancomycin wound culture follow blood culture follow wound care dressing change daily pt had recurrence of leg cellulitis. Pt report he had the infection for couple of months but did not seek medical attention. small is very bad, concerns pseudomonas order PICC line since pt is difficult to have peripheral IV access, need quit time to treat his severe infection. start Zosyn continue vancomycin wound culture follow blood culture follow wound care Patient appears to have bilateral lower extremity edema with erythema, warmth and drainage from bilateral lower extremities. Patient has had cellulitis of bilateral lower extremities in the past and was most recently hospitalized at [facility] in October 2016. The patient has not been taking any antibiotics and this has been getting worse for the last month. The patient is afebrile and does not have any leukocytosis but does appear to have bilateral cellulitis and will require at least 1 dose of IV antibiotics. Plan: Start IV vancomycin Wound care consult Patient will likely need to follow-up at the [facility] clinic for further wound care Pain control (2) Chronic back pain Conclusion/Plan: pt complaint more pain, but he has chronic pain, pt state he had contract of pain medications with his provider continue home pain meds add toradol increase dosage of Gabapentin stable, continue pain control Patient has a history of chronic back pain and is on extended release and immediate release morphine. The patient states that despite the morphine his pain is never controlled and continues to be uncontrolled in the emergency department. Patient will be continued on his home doses of immediate release and extended release morphine as per his last hospitalization. We will get pharmacy to verify the doses of morphine the morning. Patient will also be given gabapentin for his pain. (3) Hypertension Conclusion/Plan: stable, continue home meds stable, continue home meds Patient has a history of hypertension but does not take any medications as he states he is not following any PCP. The patient's blood pressure and heart rate were elevated on presentation this was thought most likely to be secondary to his pain. After improvement in his pain control patient's blood pressure did improve slightly. Patient may need to be started on a new antihypertensive medication if his blood pressure continues to be elevated. The patient blood pressure will continue to be monitored through his hospitalization. (4) COPD (chronic obstructive pulmonary disease) Conclusion/Plan: stable, continue home meds Patient has a history of COPD and is an active smoker. The patient does have decreased lung sounds and scattered wheezes but does not appear to be in a COPD exacerbation. She will be placed on albuterol nebulizers as needed if he does have any difficulties with his breathing or wheezing while he is hospitalized. (5) Tobacco abuse Nicotin patch Qualifiers: Site of cellulitis: extremity Site of cellulitis of extremity: lower extremity Laterality: unspecified laterality Qualified Code(s): L03.119 - Cellulitis of unspecified part of limb
[2017-09-09] MEDS ORDERED: HYDROmorphone 2 MG/ML VIAL IVP STA (18:09)
[2017-09-09] MEDS: MORPHINE ER 15 MG TABLET PO SCH (21:03)
[2017-09-10] MEDS: PIPERACILLIN/TAZOBACTAM 3.375 GM in SODIUM CHLORIDE 0.9% MINIBAG 100 ML IV SCH ×2 (01:52→08:38)
[2017-09-10] MEDS: SODIUM CHLORIDE 0.9% 1,000 ML IV SCH (01:52)
[2017-09-10] MEDS: SODIUM CHLORIDE FLUSH 0.9% 10 ML SYRINGE IVP SCH ×2 (01:52→08:27)
[2017-09-10] MEDS: KETOROLAC 15 MG/ML VIAL IVP PRN ×2 (01:57→08:50)
[2017-09-10 05:42] LABS: BASOPHILS # (AUTO) 0.1 10^3/uL (0.0-0.1); BASOPHILS % (AUTO) 1.1 %; EOSINOPHILS # (AUTO) 0.4 10^3/uL (0.0-0.7); EOSINOPHILS % (AUTO) 6.2 %; HGB - HEMOGLOBIN 11.1 g/dL (14.0-18.0); LYMPHOCYTES # (AUTO) 1.6 10^3/uL (1.5-3.5); LYMPHOCYTES % (AUTO) 26.4 %; MEAN CORPUSCULAR HGB CONC 31.3 g/dL (32.0-36.0); MEAN CORPUSCULAR VOLUME 83.2 fL (80.0-94.0); MEAN PLATELET VOLUME 7.3 fL (7.4-11.4); MONOCYTES # (AUTO) 0.4 10^3/uL (0.0-1.0); MONOCYTES % (AUTO) 7.3 %; NEUTROPHILS # (AUTO) 3.5 10^3/uL (1.5-6.6); PLT - PLATELET COUNT 228 10^3/uL (130-450); RED BLOOD COUNT 4.25 10^6/uL (4.70-6.10); RED CELL DISTRIBUTION WIDTH 16.5 % (12.0-15.0)
[2017-09-10 05:52] LABS: BUN - BLOOD UREA NITROGEN 11 mg/dL (6-20); CALCIUM 7.8 mg/dL (8.5-10.3); CARBON DIOXIDE - CO2 28 mmol/L (21-32); CHLORIDE 106 mmol/L (101-111); CREATININE 0.9 mg/dL (0.6-1.2); GFR - MDRD 85 (>89); GLUCOSE 93 mg/dL (70-100); SODIUM 140 mmol/L (135-145)
[2017-09-10 06:01] LABS: CRP - C-REACTIVE PROTEIN < 1.0 mg/dL (0-1.0)
[2017-09-10] MEDS: POLYETHYLENE GLYCOL 3350 17 GM PACKET PO SCH (08:26)
[2017-09-10 08:36] VITALS: BP 136/72
[2017-09-10] MEDS: ASCORBIC ACID CHEW 500 MG TABLET PO SCH (08:39)
[2017-09-10] MEDS: ZINC SULFATE 220 MG CAPSULE PO SCH (08:39)
[2017-09-10] MEDS: CALCIUM CITRATE 250 MG TABLET PO SCH (08:39)
[2017-09-10] MEDS: MORPHINE ER 60 MG TABLET PO SCH (08:39)
[2017-09-10] MEDS: NICOTINE 14 MG PATCH TOP SCH (08:39)
[2017-09-10] MEDS: ENOXAPARIN 40 MG/0.4 ML SYRINGE SUBQ SCH (08:39)
[2017-09-10] MEDS: FAMOTIDINE 20 MG TABLET PO SCH (08:39)
[2017-09-10] MEDS: GABAPENTIN 300 MG CAPSULE PO SCH (08:40)
[2017-09-10] MEDS: FERROUS SULFATE 325 MG TABLET PO SCH (08:40)
[2017-09-10] MEDS: SACCHAROMYCES BOULARDII 250 MG CAPSULE PO SCH (08:40)
[2017-09-10] MEDS: SODIUM CHLORIDE FLUSH 0.9% 10 ML SYRINGE IVP PRN (08:51)
[2017-09-10] MEDS: VANCOMYCIN INJ 1 GM in SODIUM CHLORIDE 0.9% 250 ML IV SCH (09:31)
--- NOTE | 2017-09-10 10:37 | Discharge Plan ---
Discharge Plan Disposition: Home, Self Care Condition: Poor Prescriptions: Sulfamethox/Trimeth 800/160 [Bactrim Ds 800/160] 1 each PO BID #14 tablet Diet: Regular Activity Restrictions: Activity as Tolerated Shower Restrictions: No (fall precaution) Instruction Topics: Sulfamethoxazole Trimethoprim SMX-TMP tablets, Cellulitis Ch Additional Instructions or Follow Up instructions: You may follow up your PCP in 2-3 days, change your wound dressing as your nurse instruction. Should your symptoms return or worsen, you may present ER or call 911 for help. No Smoking: If you smoke, Please STOP! Call for help. Follow-up with: Marily Franco PA [Primary Care Provider] -
--- NOTE | 2017-09-10 10:47 | DISCHARGE SUMMARY ---
Discharge Summary Discharge Date: 09/10/17 Discharging Provider: PALMER Primary Care Provider: Dr. Marily Franco Condition at Discharge: Poor Discharge Disposition: 01 Home, Self Care Discharge Facility Name: home - DIAGNOSES Admission Diagnoses: (1) Bilateral lower leg cellulitis (2) Chronic back pain (3) Hypertension (4) COPD (chronic obstructive pulmonary disease) (5) Tobacco abuse Discharge Diagnoses with Status of Each Condition: (1) Cellulitis no drainage. CRP protein is down to normal. swelling, erythema are significantly reduced. pt request to be d/c to home. Blood culture is negative. Wound culture reveals positive Serratia Marcesceas which is sensitive to Bactrim. Pt is prescribed Bactrim to home. pt was educated how to do dress changing by nurse. Pt was provided some medical supplement for dress changing by nurse. Pt state he would like to do dress changing by himself, not come to [facility] to do dress changing. (2) Chronic back pain chronic, continue home regime, continue to be managed by PCP (3) Hypertension stable (4) COPD (chronic obstructive pulmonary disease) stable, continue to be managed by PCP (5) Tobacco abuse advise pt quit (6) illicit drug abuse pt initially denies but UDS reveals positive for Methamphetamine/amphetamine. advise pt quit illicit drug abuse. - HPI History of Present Illness: refer from Dr. Torres's HPI for pt as the following: Patient is a 62-year-old gentleman with a past medical history significant for hypertension for which he does not take any meds, COPD, tobacco abuse, history of melanoma in remission, history of pancreatic cancer in remission, chronic back pain with history of 2 spinal surgeries and recurrent cellulitis of the bilateral lower extremities who presents to the emergency department with a chief complaint of bilateral lower extremity pain, swelling and redness. The patient states that his lower extremity pain, swelling and redness have been ongoing for the last 2 months. He states that initially the symptoms improved over the first month but over the last month they have become increasingly worse. He states specifically the pain is becoming severe to a point where he is having difficulty moving around and getting around even with a walker. He states that he always feels cold but denies any fevers. He states the pain is mostly located at his ankles with a stabbing/burning type pain. He states that when this all initially started it started with abscesses in his legs but currently he denies having any abscesses. He does admit to some drainage from bilateral legs and states that he has had skin that has been peeling off. He states that specifically peels off when he takes off his socks. He states that for these bilateral wounds he has been using baby powder and a cortisol cream but these have not been helping. The patient was last hospitalized here at [facility] in October 2016 with cellulitis. The patient states he currently lives with some friends and does not see anyone at the wound clinic. Patient denies any headaches, blurred vision, runny nose, sore throat, nasal congestion, difficulty swallowing, chest pain, shortness of air, cough, orthopnea, PND, abdominal pain, nausea, vomiting, diarrhea, constipation, urinary urgency, urinary frequency, dysuria, muscle aches, neck stiffness, focal neurologic deficits, polydipsia, polyuria, changes in his appetite, recent unintentional weight loss or any night sweats. The patient has continued lower back pain which is never completely controlled. On presentation to the emergency department the patient is afebrile, tachycardic and hypertensive but with normal O2 saturation and in no respiratory distress. The patient did appear to be in significant pain and was given Toradol in the emergency department with which the patient's pain continued to be uncontrolled. The patient had obvious cellulitis of his bilateral lower extremities. The patient's WBC was not elevated but CRP and ESR were. Patient's electrolytes appear to be mostly normal. The patient was given IM Rocephin and 1 dose of Bactrim in the emergency department as they were unable to get an IV. The patient was placed in observation for further antibiotic treatment and wound care. - ALLERGIES Allergies/Adverse Reactions: Allergies Allergy/AdvReac Type Severity Reaction Status Date / Time milk Allergy GI upset Verified 09/06/17 21:06 - MEDICATIONS Home Medications: Ambulatory Orders Medication Instructions Recorded Confirmed Morphine Ir [Ms Ir] 15 mg PO Q12H PRN 10/30/16 09/07/17 Morphine Sulfate [Morphine Sulfate 30 mg PO QPM 10/30/16 09/07/17 ER] Morphine Sulfate [Morphine Sulfate 60 mg PO DAILY 10/30/16 09/07/17 ER] Albuterol Sulfate [Proair Hfa 2 puffs INH Q4H PRN 09/07/17 09/07/17 Inhaler] Sulfamethox/Trimeth 800/160 1 each PO BID #14 tablet 09/10/17 [Bactrim Ds 800/160] - PHYSICAL EXAM AT DISCHARGE General Appearance: positive: No acute distress, Alert. negative: Lethargic Eyes Bilateral: positive: Normal inspection, PERRL, No lid inflammation, Conjunctivae nml ENT: positive: ENT inspection nml, Pharynx nml, No signs of dehydration. negative: Purulent nasal drainage, Pharyngeal erythema, Oral lesions Neck: positive: Nml inspection, Thyroid nml, No JVD, Trachea midline. negative : Thyromegaly, Lymphadenopathy (R), Lymphadenopathy (L), Stiff neck, Carotid bruit, Swelling/bruising, Tracheal deviation Respiratory: positive: Chest non-tender, No respiratory distress, Breath sounds nml. negative: Wheezes, Rales, Rhonchi Cardiovascular: positive: Regular rate & rhythm, No murmur, No gallop. negative : Irregularly irregular, Extrasystoles, Tachycardia, Bradycardia, JVD present, Systolic murmur, Diastolic murmur Peripheral Pulses: positive: 2+ Abdomen: positive: Non-tender, No organomegaly, Nml bowel sounds, No distention. negative: Tenderness, Guarding, Rebound Back: positive: Nml inspection. negative: CVA tenderness (R), CVA tenderness (L ) Skin: positive: Color nml, No rash, Warm, Dry. negative: Cyanosis, Diaphoresis , Pallor Extremities: positive: Non-tender, Full ROM, Nml appearance. negative: Calf tenderness, Joint swelling, Melchor's sign/cords Neurologic/Psychiatric: positive: Oriented x3, Motor nml, Sensation nml. negative: Sensory loss, Facial droop, Slurred/abnml speech, Depressed mood/ affect - LABS Result Diagrams: 09/10/17 05:10 09/10/17 05:10 - FOLLOW UP Follow Up: You may follow up your PCP in 2-3 days, change your wound dressing as your nurse instruction. Should your symptoms return or worsen, you may present ER or call 911 for help. - TIME SPENT Time Spent in Discharge (Minutes): 50
== END 2017-09-10 11:16 | disposition home or self-care (01) | DRG 603 ==
LOC: ED 20:46 → OBS 09-07 00:25 → OBSVTOIN 09-07 10:27 → MS2 09-07 11:11
PROVIDERS: ADMIT Internal Medicine; ATTEND Nurse Practitioner Gerontology
PROC: 02HV33Z Insertion of Infusion Device into Superior Vena Cava, Percutaneous Approach (ICD-10-PCS; principal; 2017-09-07)
DX: L03.116 Cellulitis of left lower limb (principal); L03.115 Cellulitis of right lower limb; L30.9 Dermatitis, unspecified; B96.89 Other specified bacterial agents as the cause of diseases classified elsewhere; M54.9 Dorsalgia, unspecified; G89.29 Other chronic pain; I10 Essential (primary) hypertension; J44.9 Chronic obstructive pulmonary disease, unspecified; F17.210 Nicotine dependence, cigarettes, uncomplicated; F15.10 Other stimulant abuse, uncomplicated; Z85.820 Personal history of malignant melanoma of skin; J43.9 Emphysema, unspecified; Z79.891 Long term (current) use of opiate analgesic; Z79.899 Other long term (current) drug therapy; Z85.07 Personal history of malignant neoplasm of pancreas
CPT/HCPCS: 36415; 36569; 71045; 80048; 80053; 80202; 80306; 83605; 83690; 83735; 85025; 85651; 86140; 87040; 87070; 87075; 87077; 87147; 87181; 87186; 87205; 96372; 99283; 99284

== ENCOUNTER 2018-05-16 18:45 | Emergency (ER) | payer MEDICARE ==
[2018-05-16] MEDS ORDERED: SODIUM CHLORIDE 0.9% 1,000 ML IV ONE (22:23)
[2018-05-16] MEDS ORDERED: AMPICILLIN/SULBACTAM 3 GM in SODIUM CHLORIDE 0.9% MINIBAG 100 ML IV STA (22:24)
--- NOTE | 2018-05-16 22:25 | ED Physician Documentation ---
History of Present Illness - Stated complaint Stated Complaint: BILAT LEG PX - Chief complaint Chief Complaint: Ext Problem - Additonal information Additional information: 63-year-old male presents the emergency department with bilateral chronic leg wounds. The patient has poor hygiene and typically with has wet socks on for prolonged periods of time. The patient had a significant skin breakdown. No fevers or chills. The patient has been using toilet paper to dress the wounds. Symptoms are described as moderate. No other associated symptoms Review of Systems Constitutional: denies: Fever, Chills Eyes: denies: Discharge Ears: denies: Ear pain Nose: denies: Congestion Throat: denies: Sore throat Cardiac: denies: Chest pain / pressure GI: denies: Abdominal Pain : denies: Dysuria Skin: reports: Other (Chronic leg wounds) Musculoskeletal: denies: Neck pain Neurologic: denies: Generalized weakness PD PAST MEDICAL HISTORY - Past Medical History Past Medical History: Yes Cardiovascular: Hypertension Respiratory: COPD, Emphysema, Pneumonia Neuro: None Endocrine/Autoimmune: None GI: Other : None HEENT: None Psych: Depression, Post traumatic stress disorder Musculoskeletal: Chronic back pain Derm: None - Past Surgical History Past Surgical History: Yes General: Other Ortho: Spine surgery Derm: Skin cancer surgery - Present Medications Home Medications: Ambulatory Orders Medication Instructions Recorded Confirmed Morphine Ir [Ms Ir] 15 mg PO Q12H PRN 10/30/16 09/07/17 Morphine Sulfate [Morphine Sulfate 30 mg PO QPM 10/30/16 09/07/17 ER] Morphine Sulfate [Morphine Sulfate 60 mg PO DAILY 10/30/16 09/07/17 ER] Albuterol Sulfate [Proair Hfa 2 puffs INH Q4H PRN 09/07/17 09/07/17 Inhaler] Sulfamethox/Trimeth 800/160 1 each PO BID #14 tablet 09/10/17 [Bactrim Ds 800/160] Doxycycline Hyclate 100 mg PO BID #20 capsule 05/17/18 Silver Sulfadiazine [Silvadene] 1,000 gm TP BID 10 Days #1 05/17/18 cream..g. - Allergies Allergies/Adverse Reactions: Allergies Allergy/AdvReac Type Severity Reaction Status Date / Time milk Allergy GI upset Verified 09/06/17 21:06 - Social History Does the pt smoke?: Yes Smoking Status: Current every day smoker Does the pt drink ETOH?: Yes Does the pt have substance abuse?: No - Immunizations Immunizations are current?: No Immunizations: TDAP >10years/unknown - POLST Patient has POLST: No POLST Status: Full Code PD ED PE NORMAL - General General: Alert and oriented X 3, No acute distress, Other (66-year-old disheveled male with poor hygiene but is in no acute distress) - HEENT HEENT: Atraumatic, PERRL, EOMI, Ears normal - Cardiac Cardiac: RRR, Strong equal pulses - Respiratory Respiratory: No respiratory distress, Clear bilaterally - Derm Derm: Other (The patient has bilateral chronic leg wounds of the lower extremities, there is skin breakdown and ulceration of the skin. The patient has bilateral dorsalis pedis pulses which are equal and there is normal cap refill. The temperature is equal bilaterally. There is no significant signs of a superimposed cellulitis.) - Extremities Extremities: Normal ROM s pain - Neuro Neuro: Alert and oriented X 3, Normal speech - Psych Psych: Normal affect Results - Vitals Vitals: Vital Signs - 24 hr 05/16/18 05/16/18 05/16/18 18:59 21:03 23:09 Temperature 36.5 C 36.7 C Heart Rate 90 70 78 Respiratory 22 15 18 Rate Blood Pressure 176/112 H 158/82 H 177/107 H O2 Saturation 100 100 99 05/17/18 05/17/18 00:26 00:29 Temperature 36.7 C Heart Rate 77 70 Respiratory 18 15 Rate Blood Pressure 179/112 H 154/68 H O2 Saturation 100 100 Oxygen O2 Source [Without Activity] Room air O2 Source Room air - Labs Labs: Laboratory Tests 05/16/18 05/16/18 22:20 22:20 WBC 9.3 RBC 4.48 L Hgb 12.8 L Hct 39.2 L MCV 87.4 MCH 28.5 MCHC 32.6 RDW 15.9 H Plt Count 345 MPV 8.2 Neut # (Auto) 6.9 H Lymph # (Auto) 1.4 L [place] # (Auto) 0.4 Eos # (Auto) 0.5 Baso # (Auto) 0.1 Absolute Nucleated RBC 0.00 Nucleated RBC % 0.0 Urine Color YELLOW Urine Clarity CLEAR Urine pH 5.5 Ur Specific [place] >=1.030 H Urine Protein TRACE Urine Glucose (UA) NEGATIVE Urine Ketones NEGATIVE Urine Occult Blood SMALL H Urine Nitrite NEGATIVE Urine Bilirubin NEGATIVE Urine Urobilinogen 0.2 (NORMAL) Ur Leukocyte Esterase NEGATIVE Urine RBC 6-10 H Urine WBC 0-3 Ur Squamous Epith Cells NONE SEEN Urine Bacteria None Seen Ur Microscopic Review INDICATED Urine Culture Comments NOT INDICATED PD MEDICAL DECISION MAKING - ED course ED course: The patient has significant skin breakdown which appears to be chronic, there is no active secondary cellulitis at this point necessitating admission to the hospital. The patient's wounds were scrubbed and cleaned and they were dressed with Silvadene and nonadherent dressings. The patient appears appropriate for discharge and was given a prescription for Silvadene and an oral antibiotic. I have advised follow-up with wound care for ongoing management. I discussed warning signs and recommended returning for any worsening or any concerns Departure - Departure Disposition: 01 Home, Self Care Clinical Impression: Bilateral leg ulcer Qualifiers: Non-pressure ulcer stage: unspecified non-pressure ulcer stage Qualified Code(s): L97.919 - Non-pressure chronic ulcer of unspecified part of right lower leg with unspecified severity Condition: Good Instructions: Wound Care Follow-Up: [facility] [Provider Group] - Within 3 Days (Please call to schedule follow- up appointment with the wound clinic for further management of your chronic leg wounds) Prescriptions: Doxycycline Hyclate 100 mg PO BID #20 capsule Silver Sulfadiazine [Silvadene] 1,000 gm TP BID 10 Days #1 cream..g. Comments: Please apply the Silvadene twice daily to your wounds and then apply a nonadherent dressing With a Kerlix over the nonadherent dressings. Please follow-up with wound care for further management of your chronic leg wounds Please return to the emergency department immediately for worsening or any concerns Discharge Date/Time: 05/17/18 00:44
[2018-05-16 22:34] LABS: BILIRUBIN,URINE NEGATIVE (NEGATIVE); GLUCOSE, URINE (UA) NEGATIVE (NEGATIVE); KETONES,URINE (UA) NEGATIVE (NEGATIVE); LEUKOCYTE ESTERASE, URINE NEGATIVE (NEGATIVE); NITRITE,URINE NEGATIVE (NEGATIVE); OCCULT BLOOD,URINE SMALL (NEGATIVE); PH,URINE 5.5 PH (5.0-7.5); PROTEIN,URINE TRACE mg/dL (NEGATIVE); UROBILINOGEN,URINE 0.2 (NORMAL) E.U./dL (NORMAL)
[2018-05-16 22:35] LABS: CLARITY,URINE CLEAR (CLEAR)
[2018-05-16 22:39] LABS: BASOPHILS # (AUTO) 0.1 10^3/uL (0.0-0.1); BASOPHILS % (AUTO) 0.8 %; EOSINOPHILS # (AUTO) 0.5 10^3/uL (0.0-0.7); EOSINOPHILS % (AUTO) 5.6 %; HGB - HEMOGLOBIN 12.8 g/dL (14.0-18.0); LYMPHOCYTES # (AUTO) 1.4 10^3/uL (1.5-3.5); LYMPHOCYTES % (AUTO) 15.4 %; MEAN CORPUSCULAR HEMOGLOBIN 28.5 pg (27.0-31.0); MEAN CORPUSCULAR HGB CONC 32.6 g/dL (32.0-36.0); MEAN CORPUSCULAR VOLUME 87.4 fL (80.0-94.0); MEAN PLATELET VOLUME 8.2 fL (7.4-11.4); MONOCYTES # (AUTO) 0.4 10^3/uL (0.0-1.0); MONOCYTES % (AUTO) 4.7 %; NEUTROPHILS # (AUTO) 6.9 10^3/uL (1.5-6.6); NEUTROPHILS % (AUTO) 73.5 %; PLT - PLATELET COUNT 345 10^3/uL (130-450); RED BLOOD COUNT 4.48 10^6/uL (4.70-6.10); RED CELL DISTRIBUTION WIDTH 15.9 % (12.0-15.0); WHITE BLOOD COUNT 9.3 x10^3/uL (4.8-10.8)
[2018-05-16] MEDS ORDERED: HYDROmorphone 1 MG/ML CARPUJECT IVP STA ×2 (22:42→23:31)
[2018-05-16 22:43] LABS: BACTERIA,URINE None Seen /HPF (None Seen); SQUAMOUS EPITHELIAL CELL,UR NONE SEEN (<= Few)
[2018-05-16] MEDS ORDERED: SILVER SULFADIAZINE CREAM 25 GM TUBE TOP STA (23:28)
[2018-05-17 00:31] VITALS: BP 154/68
== END 2018-05-17 00:44 | disposition home or self-care (01) ==
LOC: ED 18:45
DX: L97.919 Non-pressure chronic ulcer of unspecified part of right lower leg with unspecified severity (principal); I10 Essential (primary) hypertension; F17.200 Nicotine dependence, unspecified, uncomplicated
CPT/HCPCS: 36415; 81001; 85025; 96361; 96365; 96375; 96376; 99283; A9270; J1170; 80053; 81003; 83605; 83690; 87040; 87086